=== PATIENT | male | born 1940 | race Caucasian/White ===

== ENCOUNTER 2018-04-07 07:06 | Emergency (ER) | payer MEDICARE, BC ==
--- NOTE | 2018-04-07 07:34 | EDM.PDOC ---
ED HPI GENERAL MEDICAL PROBLEM - General Chief Complaint: General Stated Complaint: WEAKNESS/INCREASED CONFUSION Time Seen by Provider: 04/07/18 07:27 Source of Information: Reports: Family History Limitations: Reports: No Limitations - History of Present Illness INITIAL COMMENTS - FREE TEXT/NARRATIVE: 77-year-old male brought to the ED by his and son this morning. They have appreciated increased generalized weakness and confusion over the last several weeks but much worse over the last week. Patient did have a tooth resected are excised earlier this week but was not put on any pain medication or antibiotics. Seemed to tolerate the procedure quite well and has been eating and drinking okay. They've appreciated him expressing declining in cognitive cognitive function and mobility over the last 2 months. is been diagnosed with Lewy body dementia about 5 years ago. He has intermittent incontinence of stool and urine. Weight has been for the most part stable. Denies cough or sputum production. They believe he is taking adequate nutrition. Onset: Gradual, Unknown/Unsure (Over the last 2 months but worse the last 3-4 days.) Duration: Week(s):, Chronic Location: Reports: Generalized Quality: Reports: Other (Generalized decline in cognitive function and seems to be more confused as of late particular last 3-4 days. Infusion disorientation) Severity: Moderate (generalized weakness) Improves with: Reports: None Worsens with: Reports: None Context: Reports: Other (Ration has Lewy body dementia. He had a tooth extracted 2 days ago). Denies: Activity, Exercise, Lifting, Sick Contact, Trauma Associated Symptoms: Reports: Confusion (More confused than normal), Loss of Appetite, Malaise, Weakness. Denies: Chest Pain, Cough ( and seems to be declining level of function since that time.), cough w sputum, Diaphoresis, Fever/Chills, Headaches, Nausea/Vomiting, Rash, Seizure, Shortness of Breath, Syncope Treatments SEED SPECIALIST: Reports: Other (see below) (Generalized weakness no changes to medications.) - Related Data Allergies Allergy/AdvReac Type Severity Reaction Status Date / Time No Known Allergies Allergy Verified 04/07/18 07:18 Home Meds: Home Meds Allopurinol [Zyloprim] 50 mg PO DAILY 04/07/18 [History] Furosemide 40 mg PO DAILY 04/07/18 [History] Levothyroxine [Synthroid] 50 mcg PO ACBREAKFAST 04/07/18 [History] Metoprolol Succinate [Toprol XL 100mg] 100 mg PO DAILY 04/07/18 [History] Rivastigmine 1 each TD DAILY 04/07/18 [History] Spironolactone [Aldactone] 25 mg PO DAILY #21 tab 04/07/18 [Rx] Warfarin Sodium [Jantoven] 10 mg PO DAILY 04/07/18 [History] Past Medical History Cardiovascular History: Reports: Heart Failure, Pacemaker (With battery change about 2 years ago.) Neurological History: Reports: Other (See Below) (Has Lewy body dementia.) Endocrine/Metabolic History: Reports: Hypothyroidism Social & Family History - Tobacco Use Smoking Status *Q: Never Smoker - Caffeine Use Caffeine Use: Reports: None - Recreational Drug Use Recreational Drug Use: No - Living Situation & Occupation Living situation: Reports: , with Family ( cares for him.) Occupation: Retired ED ROS GENERAL - Review of Systems Review Of Systems: See Below Constitutional: Reports: Malaise, Weakness, Fatigue, Decreased Appetite, Weight Loss. Denies: Fever HEENT: Reports: No Symptoms Respiratory: Reports: Other (Note O2 sats of 94% on room air). Denies: Shortness of Breath, Wheezing, Pleuritic Chest Pain, Hemoptysis Cardiovascular: Reports: No Symptoms, Blood Pressure Problem, Other ( Hypertension has a pacemaker). Denies: Chest Pain Endocrine: Reports: Fatigue GI/Abdominal: Reports: Constipation (Location positive constipation), Decreased Appetite, Stool Incontinence (Occasionally.) : Reports: Frequency (Occasional incontinence), Incontinence Musculoskeletal: Reports: Back Pain, Joint Pain Skin: Reports: Bruising Neurological: Reports: Confusion (Bruises easily.), Trouble Speaking, Difficulty Walking, Weakness. Denies: Syncope, Tremors, Change in Speech Psychiatric: Reports: No Symptoms Hematologic/Lymphatic: Reports: No Symptoms Immunologic: Reports: No Symptoms ED EXAM, GENERAL - Physical Exam Exam: See Below Exam Limited By: Physical Impairment (Patient doesn't carry on much of a verbal conversation. He does comply with physical examination such as taking a deep breath opening his mouth etc.) General Appearance: Alert, WD/WN, No Apparent Distress, Other (Does feel mildly warm to palpation.) Eye Exam: Bilateral Eye: Normal Inspection Ears: Normal TMs Throat/Mouth: Normal Inspection, Normal Lips, Normal Oropharynx, Other Head: Atraumatic (He has numerous teeth that are going to need to be removed in the near future.), Normocephalic Neck: Normal Inspection, Supple, Non-Tender, Full Range of Motion. No: Lymphadenopathy (L), Lymphadenopathy (R) Respiratory/Chest: No Respiratory Distress, Lungs Clear, No Accessory Muscle Use , Respiratory Distress (Mild tachypnea at rest.), Decreased Breath Sounds. No: Rales, Wheezing Cardiovascular: Regular Rate, Rhythm, No Edema, No Gallop, No Murmur (Decreased the lower 25% of lung ferreira posteriorly) Peripheral Pulses: 1+: Posterior Tibial (L), Posterior Tibial (R), Dorsalis Pedis (L), Dorsalis Pedis (R) GI/Abdominal: Normal Bowel Sounds, Soft, Non-Tender, No Organomegaly, No Abnormal Bruit, No Mass, Pelvis Stable Extremities: Normal Inspection, Normal Range of Motion, Non-Tender, No Pedal Edema, Other (Some bruising dorsal hands and wrists) Neurological: CN II-XII Intact, No Motor/Sensory Deficits, Disoriented ( Disorder to time and place.). No: Oriented, Normal Cognition, Normal Gait, Normal Reflexes Psychiatric: Flat Affect Skin Exam: Warm, Dry, Intact, Normal Color, No Rash Course - Vital Signs Last Recorded V/S: Last Vital Signs Temp 36.6 C 04/07/18 07:52 Pulse 68 04/07/18 07:15 Resp 20 04/07/18 07:15 BP 138/77 04/07/18 07:15 Pulse Ox 94 L 04/07/18 07:15 - Orders/Labs/Meds Orders: Active Orders 24 hr Category Date Time Status Chest 1V Frontal [CR] Stat Exams 04/07/18 07:35 Taken CULTURE BLOOD [BC] Stat Lab 04/07/18 07:50 Received CULTURE BLOOD [BC] Stat Lab 04/07/18 07:57 Received URINALYSIS W/MICROSCOPIC [UA W/MICROSCOPIC] [URIN] Stat Lab 04/07/18 08:00 Ordered Dextrose 5%-0.9% NaCl [Dextrose 5%-Normal Saline] 1,000 Med 04/07/18 07:45 Active ml IV ASDIRECTED Blood Culture x2 Reflex Set [OM.PC] Stat Oth 04/07/18 07:36 Ordered Medication Orders Dextrose/Sodium Chloride (Dextrose 5%-Normal Saline) 1,000 mls @ 150 mls/hr IV ASDIRECTED LILLY Last Admin: 04/07/18 07:52 Dose: 150 mls/hr Labs: Laboratory Tests 04/07/18 04/07/18 04/07/18 Range/Units 07:50 07:50 07:50 WBC 7.81 (4.23-9.07) K/mm3 RBC 4.76 (4.63-6.08) M/mm3 Hgb 15.0 (13.7-17.5) gm/L Hct 43.5 (40.1-51.0) % MCV 91.4 (79.0-92.2) fl MCH 31.5 (25.7-32.2) pg MCHC 34.5 (32.2-35.5) g/dl RDW Std Deviation 44.4 H (35.1-43.9) fL Plt Count 182 (163-337) K/mm3 MPV 8.7 L (9.4-12.3) fl Neutrophils % (Manual) 75 H (40-60) % Band Neutrophils % 0 (0-10) % Lymphocytes % (Manual) 24 (20-40) % Atypical Lymphs % 0 % Monocytes % (Manual) 1 L (2-10) % Eosinophils % (Manual) 0 L (0.8-7.0) % Basophils % (Manual) 0 L (0.2-1.2) Platelet Estimate Adequate RBC Morph Comment Normal ESR (0-15) mm/hr PT 28.5 H (9.5-12.1) SECONDS INR 2.67 Sodium 143 (136-145) mEq/L Potassium 3.7 (3.5-5.1) mEq/L Chloride 105 (98-107) mEq/L Carbon Dioxide 30 (21-32) mEq/L Anion Gap 11.7 (5-15) BUN 17 (7-18) mg/dL Creatinine 1.3 (0.7-1.3) mg/dL Est Cr Clr Drug Dosing 43.08 mL/min Estimated GFR (MDRD) 53 (>60) mL/min BUN/Creatinine Ratio 13.1 L (14-18) Glucose 110 (83-115) mg/dL Lactic Acid (0.4-2.0) mmol/L Calcium 9.1 (8.5-10.1) mg/dL Magnesium 1.8 (1.8-2.4) mg/dl Total Bilirubin 1.6 H (0.2-1.0) mg/dL AST 25 (15-37) U/L ALT 24 (16-63) U/L Alkaline Phosphatase 102 (46-116) U/L CK-MB (CK-2) 0.7 (0-3.6) ng/ml Troponin I < 0.017 (0.00-0.056) ng/mL C-Reactive Protein 1.9 H* (<1.0) mg/dL NT-Pro-B Natriuret Pep (0-450) pg/mL Total Protein 7.2 (6.4-8.2) g/dl Albumin 3.7 (3.4-5.0) g/dl Globulin 3.5 gm/dL Albumin/Globulin Ratio 1.1 (1-2) TSH 3rd Generation 2.504 (0.358-3.74) uIU/mL Urine Color (Yellow) Urine Appearance (Clear) Urine pH (5.0-8.0) Ur Specific [place] (1.005-1.030) Urine Protein (Negative) Urine Glucose (UA) (Negative) Urine Ketones (Negative) Urine Occult Blood (Negative) Urine Nitrite (Negative) Urine Bilirubin (Negative) Urine Urobilinogen (0.2-1.0) Ur Leukocyte Esterase (Negative) Urine RBC (0-5) /hpf Urine WBC (0-5) /hpf Ur Epithelial Cells (0-5) /hpf Urine Bacteria (FEW) /hpf Urine Mucus (FEW) /hpf 04/07/18 04/07/18 04/07/18 Range/Units 07:50 07:50 07:50 WBC (4.23-9.07) K/mm3 RBC (4.63-6.08) M/mm3 Hgb (13.7-17.5) gm/L Hct (40.1-51.0) % MCV (79.0-92.2) fl MCH (25.7-32.2) pg MCHC (32.2-35.5) g/dl RDW Std Deviation (35.1-43.9) fL Plt Count (163-337) K/mm3 MPV (9.4-12.3) fl Neutrophils % (Manual) (40-60) % Band Neutrophils % (0-10) % Lymphocytes % (Manual) (20-40) % Atypical Lymphs % % Monocytes % (Manual) (2-10) % Eosinophils % (Manual) (0.8-7.0) % Basophils % (Manual) (0.2-1.2) Platelet Estimate RBC Morph Comment ESR 33 H (0-15) mm/hr PT (9.5-12.1) SECONDS INR Sodium (136-145) mEq/L Potassium (3.5-5.1) mEq/L Chloride (98-107) mEq/L Carbon Dioxide (21-32) mEq/L Anion Gap (5-15) BUN (7-18) mg/dL Creatinine (0.7-1.3) mg/dL Est Cr Clr Drug Dosing mL/min Estimated GFR (MDRD) (>60) mL/min BUN/Creatinine Ratio (14-18) Glucose (83-115) mg/dL Lactic Acid 0.9 (0.4-2.0) mmol/L Calcium (8.5-10.1) mg/dL Magnesium (1.8-2.4) mg/dl Total Bilirubin (0.2-1.0) mg/dL AST (15-37) U/L ALT (16-63) U/L Alkaline Phosphatase (46-116) U/L CK-MB (CK-2) (0-3.6) ng/ml Troponin I (0.00-0.056) ng/mL C-Reactive Protein (<1.0) mg/dL NT-Pro-B Natriuret Pep 1842 H (0-450) pg/mL Total Protein (6.4-8.2) g/dl Albumin (3.4-5.0) g/dl Globulin gm/dL Albumin/Globulin Ratio (1-2) TSH 3rd Generation (0.358-3.74) uIU/mL Urine Color (Yellow) Urine Appearance (Clear) Urine pH (5.0-8.0) Ur Specific [place] (1.005-1.030) Urine Protein (Negative) Urine Glucose (UA) (Negative) Urine Ketones (Negative) Urine Occult Blood (Negative) Urine Nitrite (Negative) Urine Bilirubin (Negative) Urine Urobilinogen (0.2-1.0) Ur Leukocyte Esterase (Negative) Urine RBC (0-5) /hpf Urine WBC (0-5) /hpf Ur Epithelial Cells (0-5) /hpf Urine Bacteria (FEW) /hpf Urine Mucus (FEW) /hpf 04/07/18 Range/Units 08:00 WBC (4.23-9.07) K/mm3 RBC (4.63-6.08) M/mm3 Hgb (13.7-17.5) gm/L Hct (40.1-51.0) % MCV (79.0-92.2) fl MCH (25.7-32.2) pg MCHC (32.2-35.5) g/dl RDW Std Deviation (35.1-43.9) fL Plt Count (163-337) K/mm3 MPV (9.4-12.3) fl Neutrophils % (Manual) (40-60) % Band Neutrophils % (0-10) % Lymphocytes % (Manual) (20-40) % Atypical Lymphs % % Monocytes % (Manual) (2-10) % Eosinophils % (Manual) (0.8-7.0) % Basophils % (Manual) (0.2-1.2) Platelet Estimate RBC Morph Comment ESR (0-15) mm/hr PT (9.5-12.1) SECONDS INR Sodium (136-145) mEq/L Potassium (3.5-5.1) mEq/L Chloride (98-107) mEq/L Carbon Dioxide (21-32) mEq/L Anion Gap (5-15) BUN (7-18) mg/dL Creatinine (0.7-1.3) mg/dL Est Cr Clr Drug Dosing mL/min Estimated GFR (MDRD) (>60) mL/min BUN/Creatinine Ratio (14-18) Glucose (83-115) mg/dL Lactic Acid (0.4-2.0) mmol/L Calcium (8.5-10.1) mg/dL Magnesium (1.8-2.4) mg/dl Total Bilirubin (0.2-1.0) mg/dL AST (15-37) U/L ALT (16-63) U/L Alkaline Phosphatase (46-116) U/L CK-MB (CK-2) (0-3.6) ng/ml Troponin I (0.00-0.056) ng/mL C-Reactive Protein (<1.0) mg/dL NT-Pro-B Natriuret Pep (0-450) pg/mL Total Protein (6.4-8.2) g/dl Albumin (3.4-5.0) g/dl Globulin gm/dL Albumin/Globulin Ratio (1-2) TSH 3rd Generation (0.358-3.74) uIU/mL Urine Color Yellow (Yellow) Urine Appearance Clear (Clear) Urine pH 7.0 (5.0-8.0) Ur Specific [place] 1.020 (1.005-1.030) Urine Protein Negative (Negative) Urine Glucose (UA) Negative (Negative) Urine Ketones Negative (Negative) Urine Occult Blood Trace-intact H (Negative) Urine Nitrite Negative (Negative) Urine Bilirubin Negative (Negative) Urine Urobilinogen 0.2 (0.2-1.0) Ur Leukocyte Esterase Negative (Negative) Urine RBC 0-5 (0-5) /hpf Urine WBC 0-5 (0-5) /hpf Ur Epithelial Cells 0-5 (0-5) /hpf Urine Bacteria Not seen (FEW) /hpf Urine Mucus Not seen (FEW) /hpf Meds: Medications Generic Name Dose Route Start Last Admin Trade Name Freq PRN Reason Stop Dose Admin Dextrose/Sodium Chloride 1,000 mls @ 150 mls/hr 04/07/18 07:45 04/07/18 07:52 Dextrose 5%-Normal Saline IV 150 mls/hr ASDIRECTED LILLY Administration Discontinued Medications Generic Name Dose Route Start Last Admin Trade Name Freq PRN Reason Stop Dose Admin Acetaminophen 650 mg 04/07/18 07:35 04/07/18 07:52 Tylenol PO 04/07/18 07:36 650 mg NOW ONE Administration Furosemide 40 mg 04/07/18 09:24 04/07/18 09:30 Lasix IVPUSH 04/07/18 09:25 40 mg NOW ONE Administration - Radiology Interpretation Free Text/Narrative:: 77-year-old male with known widely body dementia presents the ED by family members with concerns about declining cognitive and physical state. He seems to be more confused disoriented and weak compared to his normal the last week or 2. Seems to be worse since having an dental extraction carried out 2 days ago. He's on no pain medications or antibiotics. Clinically he does feel like he has a low-grade fever. He is nonverbal for the most part but does obey commands to allow examination. Is to make sure he does not have an underlying infective process. Routine labs to be done including portable chest x-ray and a catheterized urine specimens. Routine labs to include blood cultures 2. - Re-Assessments/Exams Free Text/Narrative Re-Assessment/Exam: 04/07/18 08:19 chest x-ray done portably is rotated to the right. It shows moderate cardiomegaly. Slight hyperinflated lung ferreira with mild diffuse vascular congestion pattern. No pneumothorax or pleural effusions evident. No signs of an infective process either. 04/07/18 09:23 Labs are back showing a normal white count at 7.81. Differential is 75% neutrophils with no band cells reported. Hemoglobin is 15.0 with hematocrit of 43.5. Platelet count is 182,000. PT is 20.5 with an INR of 2.67. I.e. slightly supratherapeutic INR. Sodium is 143 with potassium of 3.7. Chloride 105 with a bicarbonate 30. Anion gap is normal 11.7. BUNs 17 with a creatinine of 1.3. Estimated GFR is 53. Glucose is 110 with a lactic acid of 0.9. Calcium is 9.1 with magnesium of 1.8. Total bilirubin is 1.6. AST is 25 with an ALT of 24. Alk phosphatase 102. CK-MB fraction is 0.7. Troponin I is less than 0.017. C-reactive protein is 1.9. BNP is elevated 1842.. Total protein is 7.2. TSH is normal at 2.50. Urinalysis is negative for any infection. 04/07/18 10:06 upon further discussion with the she indicates that he is having much more trouble walking and a relating the last 2-3 days and she's concerned that he may have suffered a stroke. CT head will be done although not much is likely going to be admitted available to him in terms of improvement of this disorder is likely related to the Lewey body dementia. 04/07/18 11:29 had a long talk with the and watched him ambulate. He is exhibiting extrapyramidal symptoms. Drooling yesterday which is atypical for him walking with a shuffling gait and certainly has masked facies . Of note his neurologist placed him on 25 mg of Seroquel 2 weeks ago because of appreciated visual hallucinations. It seems to brought out extrapyramidal symptoms. After discussion with the neurologist last week the had reduce the dosage to 12.5 mg a day and he still having significant difficulties. It is my suggestion at this time that they stopped the medication completely and likely stop the Namenda as well as it may be contributing to hallucinations. He is advanced degenerative disease and is unlikely to be getting much benefit from the Namenda and it can be causing some of the hallucinations. If is on board with these changes and therefore I'll have him follow-up with Dr. Rios in 2 weeks time to see if he's better or worse. Departure - Departure Time of Disposition: 11:31 Disposition: Home, Self-Care 01 Condition: Poor Clinical Impression: Severe dementia Adverse effects of medication Qualifiers: Encounter type: initial encounter Qualified Code(s): T50.905A - Adverse effect of unspecified drugs, medicaments and biological substances, initial encounter Chronic congestive heart failure Qualifiers: Heart failure type: diastolic Qualified Code(s): I50.32 - Chronic diastolic ( congestive) heart failure - Discharge Information *PRESCRIPTION DRUG MONITORING PROGRAM REVIEWED*: Not Applicable *COPY OF PRESCRIPTION DRUG MONITORING REPORT IN PATIENT NICKOL[place]: Not Applicable Prescriptions: Spironolactone [Aldactone] 25 mg PO DAILY #21 tab Referrals: Adrian Maravilla MD [Primary Care Provider] - Forms: ED Department Discharge Additional Instructions: Evaluation in the emergency room today in regards to increased problems with gait and increased confusion. Patient has known severe dementia secondary to E body disease. Laboratory evaluation suggests slight worsening of his congestive heart failure and he was given an extra dose of Lasix intravenously while in the ED today. I would suggest an increase in his Lasix to 40 mg in the morning and 20 mg between 2 and 3:00 in the afternoon daily. Also Aldactone 25 mg once daily in the morning to help the Lasix work better and safe potassium. In regards to the dementia illness I am highly suspicious that no medication Seroquel is contributing to extrapyramidal side effects which makes him look or parkinsonian. Also suggest because he is having hallucinations that Namenda which she's been on for a couple of years may be causing some of these side effects as well. Suggest discontinuing both of these medications at this time. Suggest follow-up with Dr. Maravilla in 10 days' time to assess his heart failure and his cognitive function off of the Seroquel and Namenda. The only new medication added today was Aldactone 25 mg once daily every morning. An increased dose of Lasix as described above. - My Orders Last 24 Hours: My Active Orders 04/07/18 07:35 Chest 1V Frontal [CR] Stat 04/07/18 07:36 Blood Culture x2 Reflex Set [OM.PC] Stat 04/07/18 07:45 Dextrose 5%-0.9% NaCl [Dextrose 5%-Normal Saline] 1,000 ml IV ASDIRECTED 04/07/18 07:50 CULTURE BLOOD [BC] Stat 04/07/18 07:57 CULTURE BLOOD [BC] Stat 04/07/18 08:00 URINALYSIS W/MICROSCOPIC [UA W/MICROSCOPIC] [URIN] Stat - Assessment/Plan Last 24 Hours: My Active Orders 04/07/18 07:35 Chest 1V Frontal [CR] Stat 04/07/18 07:36 Blood Culture x2 Reflex Set [OM.PC] Stat 04/07/18 07:45 Dextrose 5%-0.9% NaCl [Dextrose 5%-Normal Saline] 1,000 ml IV ASDIRECTED 04/07/18 07:50 CULTURE BLOOD [BC] Stat 04/07/18 07:57 CULTURE BLOOD [BC] Stat 04/07/18 08:00 URINALYSIS W/MICROSCOPIC [UA W/MICROSCOPIC] [URIN] Stat
[2018-04-07] MEDS ORDERED: Acetaminophen 325 MG Tab PO ONE (07:35)
[2018-04-07] MEDS ORDERED: Dextrose 5%-0.9% NaCl 1,000 ML IV SCH (07:45)
[2018-04-07] MEDS ORDERED: Furosemide 40 MG/4 ML VIAL IVPUSH ONE (09:24)
--- NOTE | 2018-04-07 10:42 | CT ---
Head CT Technique: Multiple axial sections through the brain were obtained. Intravenous contrast was not utilized. Comparison: No prior intracranial imaging. Findings: Ventricles along with basal cisterns and sulci over the convexities are moderately prominent. Minimal diminished density is noted within the periventricular white matter which is felt compatible with small vessel ischemic demyelination change. Atrophy is also noted within the cerebellum. No other abnormal parenchymal densities are seen. No evidence of intracranial hemorrhage. No midline shift or mass effect is seen. Bone window settings were obtained which shows moderate mucosal thickening left maxillary sinus and mild areas of mucosal thickening within the ethmoid sinuses. No acute calvarial abnormality is seen. Impression: 1. Sinus findings which likely represent mild chronic sinusitis. 2. Generalized atrophy as noted above. Nothing acute is appreciated on noncontrast head CT exam. Diagnostic code #2
--- NOTE | 2018-04-10 08:36 | CR ---
Chest: Portable view of the chest was obtained. Comparison: Prior chest x-ray at 11/20/13. Heart size is normal. Tortuous thoracic aorta is seen. Pacemaker is noted. Lungs are clear without acute parenchymal change. Bony structures are grossly intact. Impression: 1. Nothing acute is seen on frontal chest x-ray. Diagnostic code #2
== END 2018-04-07 11:50 | disposition home or self-care (01) ==
LOC: JD.ED 07:06
DX: R41.0 Disorientation, unspecified (principal); T43.595A Adverse effect of other antipsychotics and neuroleptics, initial encounter; G31.83 Neurocognitive disorder with Lewy bodies; F02.80 Dementia in other diseases classified elsewhere, unspecified severity, without behavioral disturbance, psychotic disturbance, mood disturbance, and anxiety; I50.32 Chronic diastolic (congestive) heart failure; E03.9 Hypothyroidism, unspecified; Z79.01 Long term (current) use of anticoagulants; Z79.899 Other long term (current) drug therapy
CPT/HCPCS: 36415; 70450; 71045; 80053; 81001; 82553; 83605; 83735; 83880; 84443; 84484; 85007; 85027; 85610; 85652; 86140; 87040; 96361; 96374; 99285; A9270; J1940; J7042

== ENCOUNTER 2018-04-09 23:53 | Inpatient (IN) | payer MEDICARE, BC ==
[2018-04-10] MEDS ORDERED: Acetaminophen 325 MG Tab PO ONE (01:02)
[2018-04-10] MEDS ORDERED: cefTRIAXone 1 GM in Sodium Chloride 0.9% 100 ML IV ONE (01:38)
--- NOTE | 2018-04-10 02:25 | EDM.PDOC ---
ED HPI GENERAL MEDICAL PROBLEM - General Chief Complaint: Respiratory Problem Stated Complaint: [facility] Time Seen by Provider: 04/10/18 02:20 Source of Information: Reports: Patient, Family - History of Present Illness Onset: Today Treatments [employer]: Reports: IV/IO - Related Data Allergies Allergy/AdvReac Type Severity Reaction Status Date / Time procaine Allergy Unknown unknown Verified 04/10/18 03:28 Home Meds: Home Meds Allopurinol [Zyloprim] 50 mg PO DAILY 04/07/18 [History] Furosemide 60 mg PO DAILY 04/07/18 [History] Levothyroxine [Synthroid] 50 mcg PO ACBREAKFAST 04/07/18 [History] Metoprolol Succinate [Toprol XL 100mg] 100 mg PO DAILY 04/07/18 [History] Rivastigmine 1 each TD DAILY 04/07/18 [History] Spironolactone [Aldactone] 25 mg PO DAILY #21 tab 04/07/18 [Rx] Warfarin Sodium [Jantoven] 10 mg PO DAILY 04/10/18 [History] Past Medical History HEENT History: Reports: Impaired Vision Cardiovascular History: Reports: Heart Failure, Pacemaker (With battery change about 2 years ago.) Musculoskeletal History: Reports: Gout Neurological History: Reports: Other (See Below) (Has Lewy body dementia.) Other Neuro History: lewie body dementia Psychiatric History: Reports: Dementia Endocrine/Metabolic History: Reports: Hypothyroidism Hematologic History: Reports: Anticoagulation Therapy - Past Surgical History HEENT Surgical History: Reports: Other (See Below) Other HEENT Surgeries/Procedures: teeth pulled Social & Family History - Caffeine Use Caffeine Use: Reports: None - Living Situation & Occupation Living situation: Reports: , with Family ( cares for him.) Occupation: Retired ED ROS GENERAL - Review of Systems Review Of Systems: See Below (see dictation) ED EXAM, GENERAL - Physical Exam Exam: See Below (dictated) Course - Vital Signs Last Recorded V/S: Last Vital Signs Temp 38.8 C H 04/10/18 01:20 Pulse 60 04/10/18 03:10 Resp 24 H 04/10/18 03:10 BP 108/55 L 04/10/18 03:10 Pulse Ox 98 04/10/18 03:10 - Orders/Labs/Meds Orders: Active Orders 24 hr Category Date Time Status Chest 1V Frontal [CR] Stat Exams 04/10/18 00:01 Taken CULTURE BLOOD [BC] Stat Lab 04/10/18 00:20 Received CULTURE BLOOD [BC] Stat Lab 04/10/18 00:33 Received UA W/MICROSCOPIC [URIN] Stat Lab 04/10/18 00:39 Ordered Blood Culture x2 Reflex Set [OM.PC] Stat Oth 04/10/18 00:00 Ordered EKG 12 Lead [EK] Stat Ther 04/10/18 01:38 Ordered Medication Orders Sodium Chloride (Saline Flush) 10 ml FLUSH ASDIRECTED PRN PRN Reason: Keep Vein Open Labs: Laboratory Tests 04/10/18 04/10/18 04/10/18 Range/Units 00:20 00:20 00:20 WBC 9.30 H (4.23-9.07) K/mm3 RBC 4.70 (4.63-6.08) M/mm3 Hgb 14.8 (13.7-17.5) gm/L Hct 43.3 (40.1-51.0) % MCV 92.1 (79.0-92.2) fl MCH 31.5 (25.7-32.2) pg MCHC 34.2 (32.2-35.5) g/dl RDW Std Deviation 45.5 H (35.1-43.9) fL Plt Count 182 (163-337) K/mm3 MPV 9.2 L (9.4-12.3) fl Neutrophils % (Manual) 87 H (40-60) % Band Neutrophils % 0 (0-10) % Lymphocytes % (Manual) 7 L (20-40) % Atypical Lymphs % 0 % Monocytes % (Manual) 6 (2-10) % Eosinophils % (Manual) 0 L (0.8-7.0) % Basophils % (Manual) 0 L (0.2-1.2) Toxic Granulation 1+ slight Platelet Estimate Adequate Plt Morphology Comment Normal Anisocytosis 1+ slight Microcytosis 1+ slight Macrocytosis 1+ slight RBC Morph Comment Abnormal ESR 33 H (0-15) mm/hr Sodium 141 (136-145) mEq/L Potassium 4.0 (3.5-5.1) mEq/L Chloride 104 (98-107) mEq/L Carbon Dioxide 28 (21-32) mEq/L Anion Gap 13.0 (5-15) BUN 22 H (7-18) mg/dL Creatinine 1.5 H (0.7-1.3) mg/dL Est Cr Clr Drug Dosing TNP Estimated GFR (MDRD) 45 (>60) mL/min BUN/Creatinine Ratio 14.7 (14-18) Glucose 141 H (83-115) mg/dL Lactic Acid (0.4-2.0) mmol/L Calcium 8.9 (8.5-10.1) mg/dL Total Bilirubin 1.3 H (0.2-1.0) mg/dL AST 68 H (15-37) U/L ALT 60 (16-63) U/L Alkaline Phosphatase 127 H (46-116) U/L C-Reactive Protein 2.2 H* (<1.0) mg/dL NT-Pro-B Natriuret Pep (0-450) pg/mL Total Protein 7.2 (6.4-8.2) g/dl Albumin 3.5 (3.4-5.0) g/dl Globulin 3.7 gm/dL Albumin/Globulin Ratio 1.0 (1-2) Urine Color (Yellow) Urine Appearance (Clear) Urine pH (5.0-8.0) Ur Specific [place] (1.005-1.030) Urine Protein (Negative) Urine Glucose (UA) (Negative) Urine Ketones (Negative) Urine Occult Blood (Negative) Urine Nitrite (Negative) Urine Bilirubin (Negative) Urine Urobilinogen (0.2-1.0) Ur Leukocyte Esterase (Negative) Urine RBC (0-5) /hpf Urine WBC (0-5) /hpf Ur Epithelial Cells (0-5) /hpf Urine Bacteria (FEW) /hpf Hyaline Casts (0-5) /lpf Urine Mucus (FEW) /hpf 04/10/18 04/10/18 04/10/18 Range/Units 00:20 00:20 00:39 WBC (4.23-9.07) K/mm3 RBC (4.63-6.08) M/mm3 Hgb (13.7-17.5) gm/L Hct (40.1-51.0) % MCV (79.0-92.2) fl MCH (25.7-32.2) pg MCHC (32.2-35.5) g/dl RDW Std Deviation (35.1-43.9) fL Plt Count (163-337) K/mm3 MPV (9.4-12.3) fl Neutrophils % (Manual) (40-60) % Band Neutrophils % (0-10) % Lymphocytes % (Manual) (20-40) % Atypical Lymphs % % Monocytes % (Manual) (2-10) % Eosinophils % (Manual) (0.8-7.0) % Basophils % (Manual) (0.2-1.2) Toxic Granulation Platelet Estimate Plt Morphology Comment Anisocytosis Microcytosis Macrocytosis RBC Morph Comment ESR (0-15) mm/hr Sodium (136-145) mEq/L Potassium (3.5-5.1) mEq/L Chloride (98-107) mEq/L Carbon Dioxide (21-32) mEq/L Anion Gap (5-15) BUN (7-18) mg/dL Creatinine (0.7-1.3) mg/dL Est Cr Clr Drug Dosing Estimated GFR (MDRD) (>60) mL/min BUN/Creatinine Ratio (14-18) Glucose (83-115) mg/dL Lactic Acid 1.6 (0.4-2.0) mmol/L Calcium (8.5-10.1) mg/dL Total Bilirubin (0.2-1.0) mg/dL AST (15-37) U/L ALT (16-63) U/L Alkaline Phosphatase (46-116) U/L C-Reactive Protein (<1.0) mg/dL NT-Pro-B Natriuret Pep 754 H (0-450) pg/mL Total Protein (6.4-8.2) g/dl Albumin (3.4-5.0) g/dl Globulin gm/dL Albumin/Globulin Ratio (1-2) Urine Color Yellow (Yellow) Urine Appearance Clear (Clear) Urine pH 6.0 (5.0-8.0) Ur Specific [place] > or = 1.030 (1.005-1.030) Urine Protein 1+ H (Negative) Urine Glucose (UA) Negative (Negative) Urine Ketones Negative (Negative) Urine Occult Blood Negative (Negative) Urine Nitrite Negative (Negative) Urine Bilirubin Negative (Negative) Urine Urobilinogen 1.0 (0.2-1.0) Ur Leukocyte Esterase Negative (Negative) Urine RBC 0-5 (0-5) /hpf Urine WBC 0-5 (0-5) /hpf Ur Epithelial Cells 0-5 (0-5) /hpf Urine Bacteria Rare (FEW) /hpf Hyaline Casts 0-5 (0-5) /lpf Urine Mucus Many H (FEW) /hpf Meds: Medications Generic Name Dose Route Start Last Admin Trade Name Frerod PRN Reason Stop Dose Admin Sodium Chloride 10 ml 04/10/18 04:27 Saline Flush FLUSH ASDIRECTED PRN Keep Vein Open Discontinued Medications Generic Name Dose Route Start Last Admin Trade Name Freq PRN Reason Stop Dose Admin Acetaminophen 650 mg 04/10/18 01:02 04/10/18 01:09 Tylenol PO 04/10/18 01:03 650 mg NOW ONE Administration Ceftriaxone Sodium 1 gm/ 100 mls @ 200 mls/hr 04/10/18 01:38 04/10/18 02:02 Sodium Chloride IV 04/10/18 02:07 200 mls/hr ONETIME ONE Administration Departure - Departure Time of Disposition: 02:21 Disposition: Admitted As Inpatient 64 Condition: Poor Clinical Impression: Pneumonia Qualifiers: Pneumonia type: due to unspecified organism Laterality: right Lung location: upper lobe of lung Qualified Code(s): J18.1 - Lobar pneumonia, unspecified organism - Discharge Information *PRESCRIPTION DRUG MONITORING PROGRAM REVIEWED*: No *COPY OF PRESCRIPTION DRUG MONITORING REPORT IN PATIENT NICKOLAS: No - My Orders Last 24 Hours: My Active Orders 04/10/18 00:00 Blood Culture x2 Reflex Set [OM.PC] Stat 04/10/18 00:01 Chest 1V Frontal [CR] Stat 04/10/18 00:20 CULTURE BLOOD [BC] Stat 04/10/18 00:33 CULTURE BLOOD [BC] Stat 04/10/18 00:39 UA W/MICROSCOPIC [URIN] Stat 04/10/18 01:38 EKG 12 Lead [EK] Stat - Assessment/Plan Last 24 Hours: My Active Orders 04/10/18 00:00 Blood Culture x2 Reflex Set [OM.PC] Stat 04/10/18 00:01 Chest 1V Frontal [CR] Stat 04/10/18 00:20 CULTURE BLOOD [BC] Stat 04/10/18 00:33 CULTURE BLOOD [BC] Stat 04/10/18 00:39 UA W/MICROSCOPIC [URIN] Stat 04/10/18 01:38 EKG 12 Lead [EK] Stat
[2018-04-10] MEDS ORDERED: Sodium Chloride 0.9% 10 ML Syringe FLUSH PRN (04:27)
--- NOTE | 2018-04-10 09:44 | CR ---
Chest: Portable view of the chest was obtained. Comparison: Prior chest x-ray of 04/07/18. Heart size is normal. Slight tortuosity of the thoracic aortic is seen. Pacemaker is seen. Lungs are clear without acute parenchymal change. Bony structures are grossly intact. Impression: 1. Nothing acute is seen on portable chest x-ray. Diagnostic code #2
[2018-04-10] MEDS ORDERED: Bisacodyl 5 MG Tab PO PRN (10:47)
[2018-04-10] MEDS ORDERED: Docusate Sodium 100 MG Cap PO PRN (10:47)
[2018-04-10] MEDS ORDERED: Polyethylene Glycol 3350 Powder 17 GM Packet PO PRN (10:47)
[2018-04-10] MEDS ORDERED: Acetaminophen 325 MG Tab PO PRN (10:47)
[2018-04-10] MEDS ORDERED: Albuterol/Ipratropium 3.0-0.5 MG/3 ML Neb Soln NEB PRN (10:47)
[2018-04-10] MEDS ORDERED: Ondansetron 4 MG Tab.DIS PO PRN (10:47)
[2018-04-10] MEDS ORDERED: Ondansetron 4 MG/2 ML SDV IV PRN (10:47)
[2018-04-10] MEDS ORDERED: hydrALAZINE 20 MG/ML SDV IVPUSH PRN (10:56)
[2018-04-10] MEDS ORDERED: Metoprolol Tartrate 5 MG/5 ML SDV IVPUSH PRN (10:56)
[2018-04-10] MEDS ORDERED: RIVASTIGMINE TOP SCH (11:00)
[2018-04-10] MEDS: Furosemide 40 MG Tab PO SCH (11:26)
[2018-04-10] MEDS: Spironolactone 25 MG Tab PO SCH (11:26)
[2018-04-10] MEDS: Allopurinol 100 MG Tab PO SCH (11:26)
[2018-04-10] MEDS: Metoprolol Succinate 50 MG Tab.ER PO SCH (11:27)
--- NOTE | 2018-04-10 11:48 | PCM.HP ---
H&P History of Present Illness - General Date of Service: 04/10/18 Admit Problem/Dx: Admission Diagnosis/Problem Admission Diagnosis/Problem Pneumonia Source of Information: Patient, Family, Old Records, Provider, RN, RN Notes Reviewed History Limitations: Reports: No Limitations - Related Data Allergies/Adverse Reactions: Allergies Allergy/AdvReac Type Severity Reaction Status Date / Time procaine Allergy Unknown unknown Verified 04/10/18 03:28 Home Medications: Home Meds Allopurinol [Zyloprim] 50 mg PO DAILY 04/07/18 [History] Furosemide 60 mg PO DAILY 04/07/18 [History] Levothyroxine [Synthroid] 50 mcg PO ACBREAKFAST 04/07/18 [History] Metoprolol Succinate [Toprol XL 100mg] 100 mg PO DAILY 04/07/18 [History] Rivastigmine 1 each TD DAILY 04/07/18 [History] Spironolactone [Aldactone] 25 mg PO DAILY #21 tab 04/07/18 [Rx] Warfarin Sodium [Jantoven] 10 mg PO DAILY 04/10/18 [History] Past Medical History HEENT History: Reports: Impaired Vision Other HEENT History: wears glasses Cardiovascular History: Reports: Heart Failure, Pacemaker (With battery change about 2 years ago.) Respiratory History: Reports: Asthma Gastrointestinal History: Reports: Colon Polyp Other Gastrointestinal History: bile duct cancer, 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 new bile duct is made out of intestinal tract Genitourinary History: Reports: Other (See Below) Other Genitourinary History: lately patient has had some incontinence issues Musculoskeletal History: Reports: Gout Neurological History: Reports: Other (See Below) (Has Lewy body dementia.) Other Neuro History: lewie body dementia Psychiatric History: Reports: Dementia Endocrine/Metabolic History: Reports: Hypothyroidism Hematologic History: Reports: Anticoagulation Therapy Other Oncologic History: bile duct 10 years ago Dermatologic History: Reports: Other (See Below) Other Dermatologic History: discolored lower legs bilaterally, has had this for a long time - Past Surgical History HEENT Surgical History: Reports: Other (See Below) Other HEENT Surgeries/Procedures: teeth pulled Social & Family History - Family History Family Medical History: Noncontributory - Tobacco Use Smoking Status *Q: Former Smoker Used Tobacco, but Quit: Yes Month/Year Tobacco Last Used: 40 years ago - Caffeine Use Caffeine Use: Reports: None - Recreational Drug Use Recreational Drug Use: No - Living Situation & Occupation Living situation: Reports: , with Family ( cares for him.) Occupation: Retired Exam - Vital Signs Vital Signs: Last Vital Signs Temp 98.4 F 04/10/18 07:32 Pulse 59 L 04/10/18 07:32 Resp 20 04/10/18 07:32 BP 134/72 04/10/18 07:32 Pulse Ox 97 04/10/18 07:32 Weight: 186 lb 1.6 oz - Patient Data Lab Results Last 24 hrs: Laboratory Results - last 24 hr 04/10/18 04/10/18 04/10/18 Range/Units 00:20 00:20 00:20 WBC 9.30 H (4.23-9.07) K/mm3 RBC 4.70 (4.63-6.08) M/mm3 Hgb 14.8 (13.7-17.5) gm/L Hct 43.3 (40.1-51.0) % MCV 92.1 (79.0-92.2) fl MCH 31.5 (25.7-32.2) pg MCHC 34.2 (32.2-35.5) g/dl RDW Std Deviation 45.5 H (35.1-43.9) fL Plt Count 182 (163-337) K/mm3 MPV 9.2 L (9.4-12.3) fl Neut % (Auto) (34.0-67.9) % Lymph % (Auto) (21.8-53.1) % [place] % (Auto) (5.3-12.2) % Eos % (Auto) (0.8-7.0) Baso % (Auto) (0.1-1.2) % Neut # (Auto) (1.78-5.38) K/mm3 Lymph # (Auto) (1.32-3.57) K/mm3 [place] # (Auto) (0.30-0.82) K/mm3 Eos # (Auto) (0.04-0.54) K/mm3 Baso # (Auto) (0.01-0.08) K/mm3 Neutrophils % (Manual) 87 H (40-60) % Band Neutrophils % 0 (0-10) % Lymphocytes % (Manual) 7 L (20-40) % Atypical Lymphs % 0 % Monocytes % (Manual) 6 (2-10) % Eosinophils % (Manual) 0 L (0.8-7.0) % Basophils % (Manual) 0 L (0.2-1.2) Manual Slide Review Toxic Granulation 1+ slight Platelet Estimate Adequate Plt Morphology Comment Normal Anisocytosis 1+ slight Microcytosis 1+ slight Macrocytosis 1+ slight RBC Morph Comment Abnormal ESR 33 H (0-15) mm/hr PT (9.5-12.1) SECONDS INR Sodium 141 (136-145) mEq/L Potassium 4.0 (3.5-5.1) mEq/L Chloride 104 (98-107) mEq/L Carbon Dioxide 28 (21-32) mEq/L Anion Gap 13.0 (5-15) BUN 22 H (7-18) mg/dL Creatinine 1.5 H (0.7-1.3) mg/dL Est Cr Clr Drug Dosing TNP Estimated GFR (MDRD) 45 (>60) mL/min BUN/Creatinine Ratio 14.7 (14-18) Glucose 141 H (83-115) mg/dL Lactic Acid (0.4-2.0) mmol/L Calcium 8.9 (8.5-10.1) mg/dL Magnesium (1.8-2.4) mg/dl Total Bilirubin 1.3 H (0.2-1.0) mg/dL AST 68 H (15-37) U/L ALT 60 (16-63) U/L Alkaline Phosphatase 127 H (46-116) U/L C-Reactive Protein 2.2 H* (<1.0) mg/dL NT-Pro-B Natriuret Pep (0-450) pg/mL Total Protein 7.2 (6.4-8.2) g/dl Albumin 3.5 (3.4-5.0) g/dl Globulin 3.7 gm/dL Albumin/Globulin Ratio 1.0 (1-2) Urine Color (Yellow) Urine Appearance (Clear) Urine pH (5.0-8.0) Ur Specific [place] (1.005-1.030) Urine Protein (Negative) Urine Glucose (UA) (Negative) Urine Ketones (Negative) Urine Occult Blood (Negative) Urine Nitrite (Negative) Urine Bilirubin (Negative) Urine Urobilinogen (0.2-1.0) Ur Leukocyte Esterase (Negative) Urine RBC (0-5) /hpf Urine WBC (0-5) /hpf Ur Epithelial Cells (0-5) /hpf Urine Bacteria (FEW) /hpf Hyaline Casts (0-5) /lpf Urine Mucus (FEW) /hpf 04/10/18 04/10/18 04/10/18 Range/Units 00:20 00:20 00:39 WBC (4.23-9.07) K/mm3 RBC (4.63-6.08) M/mm3 Hgb (13.7-17.5) gm/L Hct (40.1-51.0) % MCV (79.0-92.2) fl MCH (25.7-32.2) pg MCHC (32.2-35.5) g/dl RDW Std Deviation (35.1-43.9) fL Plt Count (163-337) K/mm3 MPV (9.4-12.3) fl Neut % (Auto) (34.0-67.9) % Lymph % (Auto) (21.8-53.1) % [place] % (Auto) (5.3-12.2) % Eos % (Auto) (0.8-7.0) Baso % (Auto) (0.1-1.2) % Neut # (Auto) (1.78-5.38) K/mm3 Lymph # (Auto) (1.32-3.57) K/mm3 [place] # (Auto) (0.30-0.82) K/mm3 Eos # (Auto) (0.04-0.54) K/mm3 Baso # (Auto) (0.01-0.08) K/mm3 Neutrophils % (Manual) (40-60) % Band Neutrophils % (0-10) % Lymphocytes % (Manual) (20-40) % Atypical Lymphs % % Monocytes % (Manual) (2-10) % Eosinophils % (Manual) (0.8-7.0) % Basophils % (Manual) (0.2-1.2) Manual Slide Review Toxic Granulation Platelet Estimate Plt Morphology Comment Anisocytosis Microcytosis Macrocytosis RBC Morph Comment ESR (0-15) mm/hr PT (9.5-12.1) SECONDS INR Sodium (136-145) mEq/L Potassium (3.5-5.1) mEq/L Chloride (98-107) mEq/L Carbon Dioxide (21-32) mEq/L Anion Gap (5-15) BUN (7-18) mg/dL Creatinine (0.7-1.3) mg/dL Est Cr Clr Drug Dosing Estimated GFR (MDRD) (>60) mL/min BUN/Creatinine Ratio (14-18) Glucose (83-115) mg/dL Lactic Acid 1.6 (0.4-2.0) mmol/L Calcium (8.5-10.1) mg/dL Magnesium (1.8-2.4) mg/dl Total Bilirubin (0.2-1.0) mg/dL AST (15-37) U/L ALT (16-63) U/L Alkaline Phosphatase (46-116) U/L C-Reactive Protein (<1.0) mg/dL NT-Pro-B Natriuret Pep 754 H (0-450) pg/mL Total Protein (6.4-8.2) g/dl Albumin (3.4-5.0) g/dl Globulin gm/dL Albumin/Globulin Ratio (1-2) Urine Color Yellow (Yellow) Urine Appearance Clear (Clear) Urine pH 6.0 (5.0-8.0) Ur Specific [place] > or = 1.030 (1.005-1.030) Urine Protein 1+ H (Negative) Urine Glucose (UA) Negative (Negative) Urine Ketones Negative (Negative) Urine Occult Blood Negative (Negative) Urine Nitrite Negative (Negative) Urine Bilirubin Negative (Negative) Urine Urobilinogen 1.0 (0.2-1.0) Ur Leukocyte Esterase Negative (Negative) Urine RBC 0-5 (0-5) /hpf Urine WBC 0-5 (0-5) /hpf Ur Epithelial Cells 0-5 (0-5) /hpf Urine Bacteria Rare (FEW) /hpf Hyaline Casts 0-5 (0-5) /lpf Urine Mucus Many H (FEW) /hpf 04/10/18 04/10/18 04/10/18 Range/Units 07:00 07:00 07:00 WBC 9.15 H (4.23-9.07) K/mm3 RBC 4.39 L (4.63-6.08) M/mm3 Hgb 14.0 (13.7-17.5) gm/L Hct 41.0 (40.1-51.0) % MCV 93.4 H (79.0-92.2) fl MCH 31.9 (25.7-32.2) pg MCHC 34.1 (32.2-35.5) g/dl RDW Std Deviation 45.4 H (35.1-43.9) fL Plt Count 158 L (163-337) K/mm3 MPV 8.7 L (9.4-12.3) fl Neut % (Auto) 80.5 H (34.0-67.9) % Lymph % (Auto) 9.6 L (21.8-53.1) % [place] % (Auto) 8.5 (5.3-12.2) % Eos % (Auto) 1.1 (0.8-7.0) Baso % (Auto) 0.1 (0.1-1.2) % Neut # (Auto) 7.36 H (1.78-5.38) K/mm3 Lymph # (Auto) 0.88 L (1.32-3.57) K/mm3 [place] # (Auto) 0.78 (0.30-0.82) K/mm3 Eos # (Auto) 0.10 (0.04-0.54) K/mm3 Baso # (Auto) 0.01 (0.01-0.08) K/mm3 Neutrophils % (Manual) (40-60) % Band Neutrophils % (0-10) % Lymphocytes % (Manual) (20-40) % Atypical Lymphs % % Monocytes % (Manual) (2-10) % Eosinophils % (Manual) (0.8-7.0) % Basophils % (Manual) (0.2-1.2) Manual Slide Review Abnormal smear Toxic Granulation Platelet Estimate Plt Morphology Comment Anisocytosis Microcytosis Macrocytosis RBC Morph Comment ESR (0-15) mm/hr PT 38.5 H (9.5-12.1) SECONDS INR 3.62 Sodium 144 (136-145) mEq/L Potassium 4.0 (3.5-5.1) mEq/L Chloride 107 (98-107) mEq/L Carbon Dioxide 30 (21-32) mEq/L Anion Gap 11.0 (5-15) BUN 22 H (7-18) mg/dL Creatinine 1.4 H (0.7-1.3) mg/dL Est Cr Clr Drug Dosing 40.00 Estimated GFR (MDRD) 49 (>60) mL/min BUN/Creatinine Ratio 15.7 (14-18) Glucose 106 (83-115) mg/dL Lactic Acid (0.4-2.0) mmol/L Calcium 8.9 (8.5-10.1) mg/dL Magnesium 1.8 (1.8-2.4) mg/dl Total Bilirubin (0.2-1.0) mg/dL AST (15-37) U/L ALT (16-63) U/L Alkaline Phosphatase (46-116) U/L C-Reactive Protein 3.5 H* (<1.0) mg/dL NT-Pro-B Natriuret Pep (0-450) pg/mL Total Protein (6.4-8.2) g/dl Albumin (3.4-5.0) g/dl Globulin gm/dL Albumin/Globulin Ratio (1-2) Urine Color (Yellow) Urine Appearance (Clear) Urine pH (5.0-8.0) Ur Specific [place] (1.005-1.030) Urine Protein (Negative) Urine Glucose (UA) (Negative) Urine Ketones (Negative) Urine Occult Blood (Negative) Urine Nitrite (Negative) Urine Bilirubin (Negative) Urine Urobilinogen (0.2-1.0) Ur Leukocyte Esterase (Negative) Urine RBC (0-5) /hpf Urine WBC (0-5) /hpf Ur Epithelial Cells (0-5) /hpf Urine Bacteria (FEW) /hpf Hyaline Casts (0-5) /lpf Urine Mucus (FEW) /hpf Result Diagrams: 04/10/18 07:00 04/10/18 07:00 Orders Last 24hrs: Active Orders 24 hr Category Date Time Status Admission Status [Patient Status] [ADT] Routine ADT 04/10/18 02:25 Active Activity as Tolerated [RC] .Routine Care 04/10/18 04:27 Active Height and Weight [RC] DAILY Care 04/10/18 10:47 Active Intake and Output [RC] QSHIFT Care 04/10/18 10:48 Active Nursing Bedside Swallow Screen [RC] ASDIRECTED Care 04/10/18 09:09 Active Oxygen Therapy [RC] PRN Care 04/10/18 10:47 Active Pulse Oximetry [RC] PRN Care 04/10/18 10:48 Active RT Aerosol Therapy [RC] ASDIRECTED Care 04/10/18 10:49 Active Up With Assistance [RC] ASDIRECTED Care 04/10/18 10:47 Active VTE/DVT Education [RC] PER UNIT ROUTINE Care 04/10/18 10:47 Active Vital Signs [RC] Q4HR Care 04/10/18 04:27 Active Consult to Case Management [CONS] Routine Cons 04/10/18 10:47 Active Consult to General Manager In Training [CONS] Routine Cons 04/10/18 10:47 Active Consult to Spiritual Care [CONS] Routine Cons 04/10/18 10:47 Active OT Evaluation and Treatment [CONS] Routine Cons 04/10/18 10:47 Active PT Evaluation and Treatment [CONS] Routine Cons 04/10/18 10:47 Active Respiratory Care Assess and Treatment [CONS] Routine Cons 04/10/18 10:47 Active Heart Healthy Diet [DIET] Diet 04/10/18 Lunch Active BASIC METABOLIC PANEL,BMP [CHEM] AM Lab 04/11/18 05:11 Ordered BASIC METABOLIC PANEL,BMP [CHEM] AM Lab 04/12/18 05:11 Ordered BASIC METABOLIC PANEL,BMP [CHEM] AM Lab 04/13/18 05:11 Ordered BASIC METABOLIC PANEL,BMP [CHEM] AM Lab 04/14/18 05:11 Ordered CBC WITH AUTO DIFF [HEME] AM Lab 04/11/18 05:11 Ordered CBC WITH AUTO DIFF [HEME] AM Lab 04/12/18 05:11 Ordered CBC WITH AUTO DIFF [HEME] AM Lab 04/13/18 05:11 Ordered CBC WITH AUTO DIFF [HEME] AM Lab 04/14/18 05:11 Ordered CRP [C-REACTIVE PROTEIN] [CHEM] AM Lab 04/11/18 05:11 Ordered CRP [C-REACTIVE PROTEIN] [CHEM] AM Lab 04/12/18 05:11 Ordered CRP [C-REACTIVE PROTEIN] [CHEM] AM Lab 04/13/18 05:11 Ordered CRP [C-REACTIVE PROTEIN] [CHEM] AM Lab 04/14/18 05:11 Ordered CULTURE BLOOD [BC] Stat Lab 04/10/18 00:20 Received CULTURE BLOOD [BC] Stat Lab 04/10/18 00:33 Received INR,PT,PROTHROMBIN TIME [COAG] AM Lab 04/11/18 05:11 Ordered INR,PT,PROTHROMBIN TIME [COAG] AM Lab 04/12/18 05:11 Ordered INR,PT,PROTHROMBIN TIME [COAG] AM Lab 04/13/18 05:11 Ordered INR,PT,PROTHROMBIN TIME [COAG] AM Lab 04/14/18 05:11 Ordered MAGNESIUM [CHEM] AM Lab 04/11/18 05:11 Ordered MAGNESIUM [CHEM] AM Lab 04/12/18 05:11 Ordered MAGNESIUM [CHEM] AM Lab 04/13/18 05:11 Ordered MAGNESIUM [CHEM] AM Lab 04/14/18 05:11 Ordered UA W/MICROSCOPIC [URIN] Stat Lab 04/10/18 00:39 Ordered Acetaminophen [Tylenol] Med 04/10/18 10:47 Active 650 mg PO Q4H PRN Albuterol/Ipratropium [DuoNeb 3.0-0.5 MG/3 ML] Med 04/10/18 10:47 Active 3 ml NEB Q4H PRN Allopurinol [Zyloprim] Med 04/10/18 11:00 Active 50 mg PO DAILY Bisacodyl [Dulcolax] Med 04/10/18 10:47 Active 5 mg PO DAILY PRN Docusate Sodium [Colace] Med 04/10/18 10:47 Active 100 mg PO BID PRN Docusate Sodium/Sennosides [Senna Plus] Med 04/10/18 10:47 Active 1 tab PO BID PRN Furosemide [Lasix] Med 04/10/18 11:00 Active 60 mg PO DAILY Levothyroxine [Synthroid] Med 04/11/18 06:00 Active 50 mcg PO ACBREAKFAST Magnesium Rep Pharmacy to Dose [Pharmacy to Dose - Med 04/10/18 11:00 Active Magnesium Replacement] 1 dose .XX ASDIRECTED Metoprolol Succinate [Toprol XL] Med 04/10/18 11:00 Active 100 mg PO DAILY Metoprolol Tartrate [Lopressor] Med 04/10/18 10:56 Active 5 mg IVPUSH Q4H PRN Ondansetron [Zofran ODT] Med 04/10/18 10:47 Active 4 mg PO Q6H PRN Ondansetron [Zofran] Med 04/10/18 10:47 Active 4 mg IV Q6H PRN Patient's Own Medication [Ptom] Med 04/10/18 11:00 Active 0 each TOP DAILY Polyethylene Glycol 3350 [MiraLAX] Med 04/10/18 10:47 Active 17 gm PO DAILY PRN Potassium Rep Pharmacy to Dose [Pharmacy to Dose - Med 04/10/18 11:00 Active Potassium Replacement] 1 dose .XX ASDIRECTED Sodium Chloride 0.9% [Saline Flush] Med 04/10/18 04:27 Active 10 ml FLUSH ASDIRECTED PRN Spironolactone [Aldactone] Med 04/10/18 11:00 Active 25 mg PO DAILY Warfarin [Coumadin] Med 04/10/18 18:00 Active 10 mg PO SuMoWeFrSa Warfarin [Coumadin] Med 04/11/18 18:00 Active 5 mg PO TuWe cefTRIAXone [Rocephin] 1 gm Med 04/11/18 01:00 Active Sodium Chloride 0.9% [Normal Saline] 100 ml IV Q24H hydrALAZINE [Apresoline] Med 04/10/18 10:56 Active 10 mg IVPUSH Q6H PRN Blood Culture x2 Reflex Set [OM.PC] Stat Oth 04/10/18 00:00 Ordered Saline Lock Insert [OM.PC] Routine Oth 04/10/18 04:27 Ordered Resuscitation Status Routine Resus Stat 04/10/18 04:26 Ordered EKG 12 Lead [EK] Stat Ther 04/10/18 01:38 Ordered Medication Orders Acetaminophen (Tylenol) 650 mg PO Q4H PRN PRN Reason: Pain (Mild 1-3)/fever Albuterol/Ipratropium (Duoneb 3.0-0.5 Mg/3 Ml) 3 ml NEB Q4H PRN PRN Reason: Shortness Of Breath/wheezing Allopurinol (Zyloprim) 50 mg PO DAILY [facility] Last Admin: 04/10/18 11:26 Dose: 50 mg Bisacodyl (Dulcolax) 5 mg PO DAILY PRN PRN Reason: Constipation Docusate Sodium (Colace) 100 mg PO BID PRN PRN Reason: Constipation Furosemide (Lasix) 60 mg PO DAILY [facility] Last Admin: 04/10/18 11:26 Dose: 60 mg Hydralazine HCl (Apresoline) 10 mg IVPUSH Q6H PRN PRN Reason: Hypertension Ceftriaxone Sodium 1 gm/ (Sodium Chloride) 100 mls @ 200 mls/hr IV Q24H [facility] Levothyroxine Sodium (Synthroid) 50 mcg PO ACBREAKFAST [facility] Magnesium Sulfate (Pharmacy To Dose - Magnesium Replacement) 1 dose .XX ASDIRECTED [facility] Metoprolol Succinate (Toprol Xl) 100 mg PO DAILY [facility] Last Admin: 04/10/18 11:27 Dose: Metoprolol Tartrate (Lopressor) 5 mg IVPUSH Q4H PRN PRN Reason: Tachycardia Ondansetron HCl (Zofran Odt) 4 mg PO Q6H PRN PRN Reason: nausea, able to take PO Ondansetron HCl (Zofran) 4 mg IV Q6H PRN PRN Reason: Nausea/Vomiting Rivastigmine [ (Rivastigmine] 1 Each) 0 each TOP DAILY [facility] Polyethylene Glycol (Miralax) 17 gm PO DAILY PRN PRN Reason: Constipation Potassium Chloride (Pharmacy To Dose - Potassium Replacement) 1 dose .XX ASDIRECTED [facility] Senna/Docusate Sodium (Senna Plus) 1 tab PO BID PRN PRN Reason: Constipation Sodium Chloride (Saline Flush) 10 ml FLUSH ASDIRECTED PRN PRN Reason: Keep Vein Open Spironolactone (Aldactone) 25 mg PO DAILY [facility] Last Admin: 04/10/18 11:26 Dose: 25 mg Warfarin Sodium (Coumadin) 10 mg PO We [facility] Warfarin Sodium (Coumadin) 5 mg PO [facility]
[2018-04-10] MEDS: RIVASTIGMINE 9.5 MG TOP SCH (16:12)
[2018-04-10] MEDS ORDERED: Warfarin 10 MG Tab PO SCH (18:00)
[2018-04-10] MEDS ORDERED: Warfarin Sliding Scale PO SCH (18:00)
--- NOTE | 2018-04-10 18:35 | PCM.HP ---
H&P History of Present Illness - General Date of Service: 04/10/18 Admit Problem/Dx: Admission Diagnosis/Problem Admission Diagnosis/Problem Pneumonia Source of Information: Old Records, Provider History Limitations: Reports: Altered Mental Status (Confused) - History of Present Illness Initial Comments - Free Text/Narative: This is an 77 yo male with past medical h/o CHF, pacemaker, Lewy Body Dementia, gout, impaired vision, hypothyroid, h/o bile duct CA s/p Whipple, anticoagulation therapy who comes in for fever of unknown origin and dyspnea. He was seen on 04/07 in the ED after getting a tooth pulled and he had increased confusion. ER doctor changed his medication to help lessen the confusion. Seroquel and Namenda were stopped, Lasix was increased from 40 to 60, and Sprinolactone was added. No current pain. He denies F/C, SOB, cough, nausea, vomiting, diarrhea, chest pain, or GI/ complaints. His symptoms improved after receiving O2 and antibiotics in the ED. His initial workup in the ED showed a CBC remarkable for WBC 9.3, RDW 45.5, MPV 9.2, Neut 87 % with no bandemia, Lymph 7%, ESR 33. His coagulation study shows PT 38.5, INR 3.62. His chemistry is remarkable for BUN 22, Cr 1.5, GFR 45, Glu 141, Bili 1.3 , AST 68, Alk Phos 127, CRP 2.2, BNP 754. U/A unimpressive for UTI. CXR read by ER physician as RUL PNA; formal read shows no acute abnormalities. He is subsequently admitted to the medical floor. He is Full code. His PCP is Dr. Maravilla. - Related Data Allergies/Adverse Reactions: Allergies Allergy/AdvReac Type Severity Reaction Status Date / Time procaine Allergy Unknown unknown Verified 04/10/18 03:28 Home Medications: Home Meds Allopurinol [Zyloprim] 50 mg PO DAILY 04/07/18 [History] Furosemide 60 mg PO DAILY 04/07/18 [History] Levothyroxine [Synthroid] 50 mcg PO ACBREAKFAST 04/07/18 [History] Metoprolol Succinate [Toprol XL 100mg] 100 mg PO DAILY 04/07/18 [History] Rivastigmine 1 each TD DAILY 04/07/18 [History] Spironolactone [Aldactone] 25 mg PO DAILY #21 tab 04/07/18 [Rx] Warfarin Sodium [Jantoven] 10 mg PO DAILY 04/10/18 [History] Past Medical History HEENT History: Reports: Impaired Vision Other HEENT History: wears glasses Cardiovascular History: Reports: Heart Failure, Pacemaker (With battery change about 2 years ago.) Respiratory History: Reports: Asthma Gastrointestinal History: Reports: Colon Polyp Other Gastrointestinal History: bile duct cancer, 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 new bile duct is made out of intestinal tract Genitourinary History: Reports: Other (See Below) Other Genitourinary History: lately patient has had some incontinence issues Musculoskeletal History: Reports: Gout Neurological History: Reports: Other (See Below) (Has Lewy body dementia.) Other Neuro History: lewie body dementia Psychiatric History: Reports: Dementia Endocrine/Metabolic History: Reports: Hypothyroidism Hematologic History: Reports: Anticoagulation Therapy Other Oncologic History: bile duct 10 years ago Dermatologic History: Reports: Other (See Below) Other Dermatologic History: discolored lower legs bilaterally, has had this for a long time - Past Surgical History HEENT Surgical History: Reports: Other (See Below) Other HEENT Surgeries/Procedures: teeth pulled Social & Family History - Family History Family Medical History: Noncontributory - Tobacco Use Smoking Status *Q: Former Smoker Used Tobacco, but Quit: Yes Month/Year Tobacco Last Used: 40 years ago - Caffeine Use Caffeine Use: Reports: None - Recreational Drug Use Recreational Drug Use: No - Living Situation & Occupation Living situation: Reports: , with Family ( cares for him.) Occupation: Retired H&P Review of Systems - Review of Systems: Review Of Systems: See Below Free Text/Narrative: Pt is confused when I talk to him, A+O x2, disoriented to time and situation. No family to talk to right now. He currently has no complaints. General: Reports: No Symptoms. Denies: Fever, Chills HEENT: Reports: Glasses Pulmonary: Reports: No Symptoms. Denies: Shortness of Breath, Cough Cardiovascular: Reports: No Symptoms. Denies: Chest Pain Gastrointestinal: Reports: No Symptoms. Denies: Abdominal Pain, Diarrhea, Nausea, Vomiting Genitourinary: Reports: No Symptoms. Denies: Dysuria, Frequency, Burning, Pain , Urgency Musculoskeletal: Reports: No Symptoms Skin: Reports: No Symptoms Psychiatric: Reports: Confusion (A+O x 2, disoriented to time and situation. Was trying to pull out his IV when I came into the room. ) Neurological: Reports: Confusion (A+O x 2, disoriented to time and situation. Was trying to pull out his IV when I came into the room. ) Hematologic/Lymphatic: Reports: No Symptoms Immunologic: Reports: No Symptoms Exam - Exam Exam: See Below - Vital Signs Vital Signs: Last Vital Signs Temp 99.0 F 04/10/18 15:59 Pulse 62 04/10/18 15:59 Resp 20 04/10/18 15:59 BP 139/73 04/10/18 15:59 Pulse Ox 97 04/10/18 15:59 Weight: 186 lb 1.6 oz - Exam Quality Assessment: DVT Prophylaxis. No: Supplemental Oxygen General: Alert, Oriented (x2 person and place only. Disoriented to time and situation. ), Cooperative HEENT: PERRLA, Hearing Intact, Mucosa Moist & [place], Nares Patent, Normal Nasal Septum, Posterior Pharynx Clear, Conjunctiva Clear, EOMI, EACs Clear, TMs Clear Neck: Supple, Trachea Midline, 2 Lungs: Clear to Auscultation, Normal Respiratory Effort Cardiovascular: Regular Rate, Regular Rhythm GI/Abdominal Exam: Normal Bowel Sounds, Soft, Non-Tender, No Organomegaly, No Distention, No Abnormal Bruit, No Mass, Pelvis Stable (Male) Exam: Deferred Rectal (Males) Exam: Deferred Back Exam: Normal Inspection, Full Range of Motion, NT Extremities: Normal Inspection, Normal Range of Motion, Non-Tender, No Pedal Edema, Normal Capillary Refill Peripheral Pulses: 2+: Posterior Tibial (L), Posterior Tibial (R), Dorsalis Pedis (L), Dorsalis Pedis (R) Skin: Warm, Dry, Intact Neurological: Cranial Nerves Intact (grossly) Neuro Extensive - Mental Status: Alert, Disorientation to Time (and situation). No: Disorientation to Person, Disorientation to Place Psychiatric: Alert, Other (Confused) - Patient Data Lab Results Last 24 hrs: Laboratory Results - last 24 hr 04/10/18 04/10/18 04/10/18 Range/Units 00:20 00:20 00:20 WBC 9.30 H (4.23-9.07) K/mm3 RBC 4.70 (4.63-6.08) M/mm3 Hgb 14.8 (13.7-17.5) gm/L Hct 43.3 (40.1-51.0) % MCV 92.1 (79.0-92.2) fl MCH 31.5 (25.7-32.2) pg MCHC 34.2 (32.2-35.5) g/dl RDW Std Deviation 45.5 H (35.1-43.9) fL Plt Count 182 (163-337) K/mm3 MPV 9.2 L (9.4-12.3) fl Neut % (Auto) (34.0-67.9) % Lymph % (Auto) (21.8-53.1) % [place] % (Auto) (5.3-12.2) % Eos % (Auto) (0.8-7.0) Baso % (Auto) (0.1-1.2) % Neut # (Auto) (1.78-5.38) K/mm3 Lymph # (Auto) (1.32-3.57) K/mm3 [place] # (Auto) (0.30-0.82) K/mm3 Eos # (Auto) (0.04-0.54) K/mm3 Baso # (Auto) (0.01-0.08) K/mm3 Neutrophils % (Manual) 87 H (40-60) % Band Neutrophils % 0 (0-10) % Lymphocytes % (Manual) 7 L (20-40) % Atypical Lymphs % 0 % Monocytes % (Manual) 6 (2-10) % Eosinophils % (Manual) 0 L (0.8-7.0) % Basophils % (Manual) 0 L (0.2-1.2) Manual Slide Review Toxic Granulation 1+ slight Platelet Estimate Adequate Plt Morphology Comment Normal Anisocytosis 1+ slight Microcytosis 1+ slight Macrocytosis 1+ slight RBC Morph Comment Abnormal ESR 33 H (0-15) mm/hr PT (9.5-12.1) SECONDS INR Sodium 141 (136-145) mEq/L Potassium 4.0 (3.5-5.1) mEq/L Chloride 104 (98-107) mEq/L Carbon Dioxide 28 (21-32) mEq/L Anion Gap 13.0 (5-15) BUN 22 H (7-18) mg/dL Creatinine 1.5 H (0.7-1.3) mg/dL Est Cr Clr Drug Dosing TNP Estimated GFR (MDRD) 45 (>60) mL/min BUN/Creatinine Ratio 14.7 (14-18) Glucose 141 H (83-115) mg/dL Lactic Acid (0.4-2.0) mmol/L Calcium 8.9 (8.5-10.1) mg/dL Magnesium (1.8-2.4) mg/dl Total Bilirubin 1.3 H (0.2-1.0) mg/dL AST 68 H (15-37) U/L ALT 60 (16-63) U/L Alkaline Phosphatase 127 H (46-116) U/L C-Reactive Protein 2.2 H* (<1.0) mg/dL NT-Pro-B Natriuret Pep (0-450) pg/mL Total Protein 7.2 (6.4-8.2) g/dl Albumin 3.5 (3.4-5.0) g/dl Globulin 3.7 gm/dL Albumin/Globulin Ratio 1.0 (1-2) Urine Color (Yellow) Urine Appearance (Clear) Urine pH (5.0-8.0) Ur Specific [place] (1.005-1.030) Urine Protein (Negative) Urine Glucose (UA) (Negative) Urine Ketones (Negative) Urine Occult Blood (Negative) Urine Nitrite (Negative) Urine Bilirubin (Negative) Urine Urobilinogen (0.2-1.0) Ur Leukocyte Esterase (Negative) Urine RBC (0-5) /hpf Urine WBC (0-5) /hpf Ur Epithelial Cells (0-5) /hpf Urine Bacteria (FEW) /hpf Hyaline Casts (0-5) /lpf Urine Mucus (FEW) /hpf 04/10/18 04/10/18 04/10/18 Range/Units 00:20 00:20 00:39 WBC (4.23-9.07) K/mm3 RBC (4.63-6.08) M/mm3 Hgb (13.7-17.5) gm/L Hct (40.1-51.0) % MCV (79.0-92.2) fl MCH (25.7-32.2) pg MCHC (32.2-35.5) g/dl RDW Std Deviation (35.1-43.9) fL Plt Count (163-337) K/mm3 MPV (9.4-12.3) fl Neut % (Auto) (34.0-67.9) % Lymph % (Auto) (21.8-53.1) % [place] % (Auto) (5.3-12.2) % Eos % (Auto) (0.8-7.0) Baso % (Auto) (0.1-1.2) % Neut # (Auto) (1.78-5.38) K/mm3 Lymph # (Auto) (1.32-3.57) K/mm3 [place] # (Auto) (0.30-0.82) K/mm3 Eos # (Auto) (0.04-0.54) K/mm3 Baso # (Auto) (0.01-0.08) K/mm3 Neutrophils % (Manual) (40-60) % Band Neutrophils % (0-10) % Lymphocytes % (Manual) (20-40) % Atypical Lymphs % % Monocytes % (Manual) (2-10) % Eosinophils % (Manual) (0.8-7.0) % Basophils % (Manual) (0.2-1.2) Manual Slide Review Toxic Granulation Platelet Estimate Plt Morphology Comment Anisocytosis Microcytosis Macrocytosis RBC Morph Comment ESR (0-15) mm/hr PT (9.5-12.1) SECONDS INR Sodium (136-145) mEq/L Potassium (3.5-5.1) mEq/L Chloride (98-107) mEq/L Carbon Dioxide (21-32) mEq/L Anion Gap (5-15) BUN (7-18) mg/dL Creatinine (0.7-1.3) mg/dL Est Cr Clr Drug Dosing Estimated GFR (MDRD) (>60) mL/min BUN/Creatinine Ratio (14-18) Glucose (83-115) mg/dL Lactic Acid 1.6 (0.4-2.0) mmol/L Calcium (8.5-10.1) mg/dL Magnesium (1.8-2.4) mg/dl Total Bilirubin (0.2-1.0) mg/dL AST (15-37) U/L ALT (16-63) U/L Alkaline Phosphatase (46-116) U/L C-Reactive Protein (<1.0) mg/dL NT-Pro-B Natriuret Pep 754 H (0-450) pg/mL Total Protein (6.4-8.2) g/dl Albumin (3.4-5.0) g/dl Globulin gm/dL Albumin/Globulin Ratio (1-2) Urine Color Yellow (Yellow) Urine Appearance Clear (Clear) Urine pH 6.0 (5.0-8.0) Ur Specific [place] > or = 1.030 (1.005-1.030) Urine Protein 1+ H (Negative) Urine Glucose (UA) Negative (Negative) Urine Ketones Negative (Negative) Urine Occult Blood Negative (Negative) Urine Nitrite Negative (Negative) Urine Bilirubin Negative (Negative) Urine Urobilinogen 1.0 (0.2-1.0) Ur Leukocyte Esterase Negative (Negative) Urine RBC 0-5 (0-5) /hpf Urine WBC 0-5 (0-5) /hpf Ur Epithelial Cells 0-5 (0-5) /hpf Urine Bacteria Rare (FEW) /hpf Hyaline Casts 0-5 (0-5) /lpf Urine Mucus Many H (FEW) /hpf 04/10/18 04/10/18 04/10/18 Range/Units 07:00 07:00 07:00 WBC 9.15 H (4.23-9.07) K/mm3 RBC 4.39 L (4.63-6.08) M/mm3 Hgb 14.0 (13.7-17.5) gm/L Hct 41.0 (40.1-51.0) % MCV 93.4 H (79.0-92.2) fl MCH 31.9 (25.7-32.2) pg MCHC 34.1 (32.2-35.5) g/dl RDW Std Deviation 45.4 H (35.1-43.9) fL Plt Count 158 L (163-337) K/mm3 MPV 8.7 L (9.4-12.3) fl Neut % (Auto) 80.5 H (34.0-67.9) % Lymph % (Auto) 9.6 L (21.8-53.1) % [place] % (Auto) 8.5 (5.3-12.2) % Eos % (Auto) 1.1 (0.8-7.0) Baso % (Auto) 0.1 (0.1-1.2) % Neut # (Auto) 7.36 H (1.78-5.38) K/mm3 Lymph # (Auto) 0.88 L (1.32-3.57) K/mm3 [place] # (Auto) 0.78 (0.30-0.82) K/mm3 Eos # (Auto) 0.10 (0.04-0.54) K/mm3 Baso # (Auto) 0.01 (0.01-0.08) K/mm3 Neutrophils % (Manual) (40-60) % Band Neutrophils % (0-10) % Lymphocytes % (Manual) (20-40) % Atypical Lymphs % % Monocytes % (Manual) (2-10) % Eosinophils % (Manual) (0.8-7.0) % Basophils % (Manual) (0.2-1.2) Manual Slide Review Abnormal smear Toxic Granulation Platelet Estimate Plt Morphology Comment Anisocytosis Microcytosis Macrocytosis RBC Morph Comment ESR (0-15) mm/hr PT 38.5 H (9.5-12.1) SECONDS INR 3.62 Sodium 144 (136-145) mEq/L Potassium 4.0 (3.5-5.1) mEq/L Chloride 107 (98-107) mEq/L Carbon Dioxide 30 (21-32) mEq/L Anion Gap 11.0 (5-15) BUN 22 H (7-18) mg/dL Creatinine 1.4 H (0.7-1.3) mg/dL Est Cr Clr Drug Dosing 40.00 Estimated GFR (MDRD) 49 (>60) mL/min BUN/Creatinine Ratio 15.7 (14-18) Glucose 106 (83-115) mg/dL Lactic Acid (0.4-2.0) mmol/L Calcium 8.9 (8.5-10.1) mg/dL Magnesium 1.8 (1.8-2.4) mg/dl Total Bilirubin (0.2-1.0) mg/dL AST (15-37) U/L ALT (16-63) U/L Alkaline Phosphatase (46-116) U/L C-Reactive Protein 3.5 H* (<1.0) mg/dL NT-Pro-B Natriuret Pep (0-450) pg/mL Total Protein (6.4-8.2) g/dl Albumin (3.4-5.0) g/dl Globulin gm/dL Albumin/Globulin Ratio (1-2) Urine Color (Yellow) Urine Appearance (Clear) Urine pH (5.0-8.0) Ur Specific [place] (1.005-1.030) Urine Protein (Negative) Urine Glucose (UA) (Negative) Urine Ketones (Negative) Urine Occult Blood (Negative) Urine Nitrite (Negative) Urine Bilirubin (Negative) Urine Urobilinogen (0.2-1.0) Ur Leukocyte Esterase (Negative) Urine RBC (0-5) /hpf Urine WBC (0-5) /hpf Ur Epithelial Cells (0-5) /hpf Urine Bacteria (FEW) /hpf Hyaline Casts (0-5) /lpf Urine Mucus (FEW) /hpf Result Diagrams: 04/10/18 07:00 04/10/18 07:00 Yunior Results Last 24 hrs: Microbiology 04/10/18 00:33 Anaerobic Blood Culture - Preliminary Blood - Venous - Lab Draw Gram Negative Rods - Problem List (1) Fever, unknown origin SNOMED Code(s): 8801495 ICD Code: R50.9 - FEVER, UNSPECIFIED Status: Acute Priority: High Current Visit: Yes (2) Hypoxia SNOMED Code(s): 748403166 ICD Code: R09.02 - HYPOXEMIA Status: Resolved Priority: High Current Visit: No (3) Severe dementia SNOMED Code(s): 44031089 ICD Code: F03.90 - UNSPECIFIED DEMENTIA WITHOUT BEHAVIORAL DISTURBANCE Status: Chronic Priority: Low Current Visit: Yes Problem List Initiated/Reviewed/Updated: Yes Orders Last 24hrs: Active Orders 24 hr Category Date Time Status Admission Status [Patient Status] [ADT] Routine ADT 04/10/18 02:25 Active Activity as Tolerated [RC] BID Care 04/10/18 04:27 Active Height and Weight [RC] DAILY Care 04/10/18 10:47 Active Intake and Output [RC] QSHIFT Care 04/10/18 10:48 Active Nursing Bedside Swallow Screen [RC] 1600 Care 04/10/18 09:09 Active RT Aerosol Therapy [RC] ASDIRECTED Care 04/10/18 10:49 Active Up With Assistance [RC] BID Care 04/10/18 10:47 Active VTE/DVT Education [RC] PER UNIT ROUTINE Care 04/10/18 10:47 Active Vital Signs [RC] Q4HR Care 04/10/18 04:27 Active Consult to Case Management [CONS] Routine Cons 04/10/18 10:47 Active Consult to Cookie Mixer Helper [CONS] Routine Cons 04/10/18 10:47 Active Consult to Spiritual Care [CONS] Routine Cons 04/10/18 10:47 Active OT Evaluation and Treatment [CONS] Routine Cons 04/10/18 10:47 Active PT Evaluation and Treatment [CONS] Routine Cons 04/10/18 10:47 Active Respiratory Care Assess and Treatment [CONS] Routine Cons 04/10/18 10:47 Active Heart Healthy Diet [DIET] Diet 04/10/18 Lunch Active BASIC METABOLIC PANEL,BMP [CHEM] AM Lab 04/11/18 05:11 Ordered BASIC METABOLIC PANEL,BMP [CHEM] AM Lab 04/12/18 05:11 Ordered BASIC METABOLIC PANEL,BMP [CHEM] AM Lab 04/13/18 05:11 Ordered BASIC METABOLIC PANEL,BMP [CHEM] AM Lab 04/14/18 05:11 Ordered CBC WITH AUTO DIFF [HEME] AM Lab 04/11/18 05:11 Ordered CBC WITH AUTO DIFF [HEME] AM Lab 04/12/18 05:11 Ordered CBC WITH AUTO DIFF [HEME] AM Lab 04/13/18 05:11 Ordered CBC WITH AUTO DIFF [HEME] AM Lab 04/14/18 05:11 Ordered CRP [C-REACTIVE PROTEIN] [CHEM] AM Lab 04/11/18 05:11 Ordered CRP [C-REACTIVE PROTEIN] [CHEM] AM Lab 04/12/18 05:11 Ordered CRP [C-REACTIVE PROTEIN] [CHEM] AM Lab 04/13/18 05:11 Ordered CRP [C-REACTIVE PROTEIN] [CHEM] AM Lab 04/14/18 05:11 Ordered CULTURE BLOOD [BC] Stat Lab 04/10/18 00:20 Received CULTURE BLOOD [BC] Stat Lab 04/10/18 00:33 Results INR,PT,PROTHROMBIN TIME [COAG] AM Lab 04/11/18 05:11 Ordered INR,PT,PROTHROMBIN TIME [COAG] AM Lab 04/12/18 05:11 Ordered INR,PT,PROTHROMBIN TIME [COAG] AM Lab 04/13/18 05:11 Ordered INR,PT,PROTHROMBIN TIME [COAG] AM Lab 04/14/18 05:11 Ordered MAGNESIUM [CHEM] AM Lab 04/11/18 05:11 Ordered MAGNESIUM [CHEM] AM Lab 04/12/18 05:11 Ordered MAGNESIUM [CHEM] AM Lab 04/13/18 05:11 Ordered MAGNESIUM [CHEM] AM Lab 04/14/18 05:11 Ordered UA W/MICROSCOPIC [URIN] Stat Lab 04/10/18 00:39 Ordered Acetaminophen [Tylenol] Med 04/10/18 10:47 Active 650 mg PO Q4H PRN Albuterol/Ipratropium [DuoNeb 3.0-0.5 MG/3 ML] Med 04/10/18 10:47 Active 3 ml NEB Q4H PRN Allopurinol [Zyloprim] Med 04/10/18 11:00 Active 50 mg PO DAILY Bisacodyl [Dulcolax] Med 04/10/18 10:47 Active 5 mg PO DAILY PRN Docusate Sodium [Colace] Med 04/10/18 10:47 Active 100 mg PO BID PRN Docusate Sodium/Sennosides [Senna Plus] Med 04/10/18 10:47 Active 1 tab PO BID PRN Furosemide [Lasix] Med 04/10/18 11:00 Active 60 mg PO DAILY Levothyroxine [Synthroid] Med 04/11/18 06:00 Active 50 mcg PO ACBREAKFAST Magnesium Rep Pharmacy to Dose [Pharmacy to Dose - Med 04/10/18 11:00 Active Magnesium Replacement] 1 dose .XX ASDIRECTED Metoprolol Succinate [Toprol XL] Med 04/10/18 11:00 Active 100 mg PO DAILY Metoprolol Tartrate [Lopressor] Med 04/10/18 10:56 Active 5 mg IVPUSH Q4H PRN Ondansetron [Zofran ODT] Med 04/10/18 10:47 Active 4 mg PO Q6H PRN Ondansetron [Zofran] Med 04/10/18 10:47 Active 4 mg IV Q6H PRN Patient's Own Medication [Ptom] Med 04/10/18 16:00 Active 0 each TOP DAILY@1600 Polyethylene Glycol 3350 [MiraLAX] Med 04/10/18 10:47 Active 17 gm PO DAILY PRN Potassium Rep Pharmacy to Dose [Pharmacy to Dose - Med 04/10/18 11:00 Active Potassium Replacement] 1 dose .XX ASDIRECTED Sodium Chloride 0.9% [Saline Flush] Med 04/10/18 04:27 Active 10 ml FLUSH ASDIRECTED PRN Spironolactone [Aldactone] Med 04/10/18 11:00 Active 25 mg PO DAILY Warfarin Pharmacy to Dose [Pharmacy to Dose - Warfarin] Med 04/10/18 13:00 Active 0 dose .XX ASDIRECTED PRN Warfarin Sliding Scale [Coumadin Sliding Scale] Med 04/10/18 18:00 Active 0 each PO QPM cefTRIAXone [Rocephin] 1 gm Med 04/11/18 01:00 Active Sodium Chloride 0.9% [Normal Saline] 100 ml IV Q24H hydrALAZINE [Apresoline] Med 04/10/18 10:56 Active 10 mg IVPUSH Q6H PRN Blood Culture x2 Reflex Set [OM.PC] Stat Oth 04/10/18 00:00 Ordered Saline Lock Insert [OM.PC] Routine Oth 04/10/18 04:27 Ordered Resuscitation Status Routine Resus Stat 04/10/18 04:26 Ordered EKG 12 Lead [EK] Stat Ther 04/10/18 01:38 Ordered Medication Orders Acetaminophen (Tylenol) 650 mg PO Q4H PRN PRN Reason: Pain (Mild 1-3)/fever Albuterol/Ipratropium (Duoneb 3.0-0.5 Mg/3 Ml) 3 ml NEB Q4H PRN PRN Reason: Shortness Of Breath/wheezing Allopurinol (Zyloprim) [address] [facility] Last Admin: 04/10/18 11:26 Dose: 50 mg Bisacodyl (Dulcolax) 5 mg PO DAILY PRN PRN Reason: Constipation Docusate Sodium (Colace) 100 mg PO BID PRN PRN Reason: Constipation Furosemide (Lasix) [address] [facility] Last Admin: 04/10/18 11:26 Dose: 60 mg Hydralazine HCl (Apresoline) 10 mg IVPUSH Q6H PRN PRN Reason: Hypertension Ceftriaxone Sodium 1 gm/ (Sodium Chloride) 100 mls @ 200 mls/hr IV Q24H [facility] Levothyroxine Sodium (Synthroid) [address] [facility] Magnesium Sulfate (Pharmacy To Dose - Magnesium Replacement) [address] [facility] Metoprolol Succinate (Toprol Xl) [address] [facility] Last Admin: 04/10/18 11:27 Dose: Metoprolol Tartrate (Lopressor) 5 mg IVPUSH Q4H PRN PRN Reason: Tachycardia Ondansetron HCl (Zofran Odt) 4 mg PO Q6H PRN PRN Reason: nausea, able to take PO Ondansetron HCl (Zofran) 4 mg IV Q6H PRN PRN Reason: Nausea/Vomiting Rivastigmine 9.5mg (PatchOwn Med) 0 each TOP DAILY@1600 [facility] Last Admin: 04/10/18 16:12 Dose: 1 each Polyethylene Glycol (Miralax) 17 gm PO DAILY PRN PRN Reason: Constipation Potassium Chloride (Pharmacy To Dose - Potassium Replacement) [address] [facility] Senna/Docusate Sodium (Senna Plus) 1 tab PO BID PRN PRN Reason: Constipation Sodium Chloride (Saline Flush) 10 ml FLUSH ASDIRECTED PRN PRN Reason: Keep Vein Open Spironolactone (Aldactone) [address] [facility] Last Admin: 04/10/18 11:26 Dose: 25 mg Warfarin Sodium (Pharmacy To Dose - Warfarin) 0 dose .XX ASDIRECTED PRN PRN Reason: RX TO DOSE WARFARIN Warfarin Sodium (Coumadin Sliding Scale) [address] [facility] Stop: 04/10/18 21:00 Assessment/Plan Comment:: I/P: Acute: Fever of Unknown Origin, Improved * Risk factor: tooth pulled 04/05; had come into ED 04/07 for increased confusion * 101.8 rectally yesterday --> 99.7 now * WBC slightly elevated at 9.3, ESR 33, CRP 2.2--> 3.5 * CXR --> shows no acute abnormality * U/A negative for UTI * Sepsis Protocol * Lactic Acid normal at 1.6 * Blood cultures--> 1 growing Gram - rods after 12H; most likely d/t contamination * Repeat Blood cultures * Rocephin started in ED--> D/C; there seems to be no clear source of infection * Tylenol given in ED--> Continue PRN Diarrhea * intermittent x2 weeks per * No blood in stool * Florastor Confusion * Acute on Chronic (h/o Lewy Body Dementia); increased per * Risk factor: recent change in medications * Was recently started on Seroquel; per records, 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 * Was in ED 04/07 for increased confusion and was taken off both Seroquel and Namenda by ED provider * would like to restart Namenda here as she states he seems worse without it; will bring in the bottle tomorrow AM * BOX ANNEALER swallow eval Resolved: Dyspnea * Was dyspneic on scene according to EMS, 93% RA * No cough, CXR clear * Now 97% RA Chronic: CHF * BNP 754 * Continue Lasix and Spironolactone Pacemaker Lewy Body Dementia Gout Impaired vision Hypothyroid Anticoagulation therapy Bile Duct CA s/p Whipple Plan: Transferred to medical floor He remains stable and continues to improve clinically Other orders as indicated above Routine AM labs Heart Healthy Diet SW/CM for discharge planning --> may need SNF placement; also code status needs to be addressed PT/OT DVT Prophylaxis: Warfarin GI Prophylaxis: Pepcid Ambulate with assistance Code Status: Full Code; PCP: Dr. Maravilla is POA
[2018-04-10] MEDS: Famotidine 20 MG Tab PO SCH (23:27)
[2018-04-11] MEDS ORDERED: cefTRIAXone 1 GM in Sodium Chloride 0.9% 100 ML IV SCH (01:00)
[2018-04-11] MEDS: Levothyroxine 50 MCG Tab PO SCH (05:12)
--- NOTE | 2018-04-11 07:00 | ER ---
REASON FOR ADMISSION: Dementia and pneumonia. HISTORY: This is a 77-year-old man who was brought to the emergency department by his and his son. He has a history of Lewy body dementia. He recently had a tooth extracted on Tuesday which was done under local anesthesia. Postoperatively, his baseline contusion worsened according to the and son and he had increased difficulty with ambulation much more so than usual, particularly throughout the day today. They noticed an increased labored breathing this evening and felt that he was warm and sweaty, but did not take a temperature. It is noteworthy that he was recently given a prescription for Aldactone for worsening congestive heart failure, but they did not fill the prescription as of yet. PAST MEDICAL HISTORY: 1. Reviewed. See EMR. It is noteworthy that he as a pacemaker and history of congestive heart failure. 2. 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 3. Hypertension. 4. He is a nondiabetic with a remote history of smoking. CURRENT MEDICATIONS: Reviewed. See EMR. ALLERGIES: None to medications. REVIEW OF SYSTEMS: Pertinent positives and negatives as in the HPI. PHYSICAL EXAMINATION: VITAL SIGNS: See EMR. He is febrile at 38.8, blood pressure 139/86, heart rate is 65, O2 sat is 95%. HEENT: He has some scleral injection, but no scleral icterus is noted. Oral mucosa seems somewhat dry. NECK: Reasonably supple. No bruits. No JVD is noted. CHEST: He does have a few scattered rhonchi. No wheezes are noted. Reasonably good air exchange. CARDIAC: Regular rate without murmur. Also on chest exam, pacemaker is noted in the left upper outer chest wall area. ABDOMEN: Soft and nontender. Normal bowel sounds, nondistended. EXTREMITIES: He has good popliteal pulses and I think he has ankle pulses as well. His feet are warm and pink. He has venous stasis changes. NEUROLOGIC: He moves all four extremities to commands. Face is symmetrical. His affect initially appeared flat, but when I tried to engage him, he actually answered questions reasonably appropriately and even showed some degree of a sense of humor. We talked about fishing, etc. and he was reasonably lucid. FURTHER EMERGENCY ROOM COURSE: A chest x-ray was obtained and it was a portable upright. It does appear possibly to be some right upper lobe infiltrative changes, but I am real confident of that. The quality of the film is borderline in terms of making a diagnosis of pneumonia in my opinion. His CMP reveals normal electrolytes. His BUN is 22 with a creatinine of 1.5. His glucose is 141, but this is nonfasting. His total bilirubin is 1.3 with an alkaline phosphatase of 127. His BNP was 1842 on 04/07 and it is down to 754 today. Urine was negative for any sign of UTI. IMPRESSION: It is obvious that the can no longer provide his cares adequately and she has reached the limits of her ability to assist as this point in time. He does have a fever and with his increased labored breathing and physical findings, clinically it appears that he may well have pneumonia. We will start him on Rocephin for starters. I discussed the patient's admission with Dr. Will who agrees that he should be admitted. The patient's family understands and agrees with this plan. MARY /[id number]
[2018-04-11] MEDS: Allopurinol 100 MG Tab PO SCH (08:05)
[2018-04-11] MEDS: Furosemide 40 MG Tab PO SCH (08:06)
[2018-04-11] MEDS: Spironolactone 25 MG Tab PO SCH (08:06)
[2018-04-11] MEDS: Saccharomyces Boulardii (Probiotic) 250 MG Cap PO SCH ×2 (08:06→21:16)
[2018-04-11] MEDS: Famotidine 20 MG Tab PO SCH ×2 (08:07→21:16)
[2018-04-11] MEDS ORDERED: Potassium Chloride 20 MEQ Tab.ER PO ONE (09:00)
[2018-04-11] MEDS ORDERED: Magnesium Sulfate/Water 2 GM in Premix Bag 1 BAG IV ONE (09:00)
[2018-04-11] MEDS: Metoprolol Succinate 50 MG Tab.ER PO SCH (09:48)
[2018-04-11] MEDS ORDERED: Iopamidol 755 Mg/ML 100 ML Bottle IVPUSH ONE (16:43)
[2018-04-11] MEDS ORDERED: Sodium Chloride 0.9% 10 ML Syringe FLUSH ONE (16:43)
[2018-04-11] MEDS ORDERED: Sodium Chloride 0.9% 100 ML IV SCH (16:45)
[2018-04-11] MEDS: RIVASTIGMINE 9.5 MG TOP SCH (17:08)
[2018-04-11] MEDS ORDERED: Warfarin 5 MG Tab PO SCH (18:00)
[2018-04-11] MEDS ORDERED: Levofloxacin/Dextrose 5%-Water 750 MG in Premix Bag 1 BAG IV SCH (18:00)
[2018-04-11] MEDS ORDERED: Warfarin 10 MG Tab PO SCH (18:00)
--- NOTE | 2018-04-11 21:15 | PCM.PN ---
- General Info Date of Service: 04/11/18 Admission Dx/Problem (Free Text): Admission Diagnosis/Problem Admission Diagnosis/Problem Pneumonia Subjective Update: In to see Randell. Overall he is doing well and has no complaints. He is sitting in a chair visiting with family. He is still very confused d/t his h/o Lewy Body Dementia, so I talked with his (DAGO) and daughter. I explained to the family that his repeat CXR was clear but that one of his blood cultures did come back with Gram - rods. This may be contamination, but we will repeat blood cultures to check. I also explained that I had stopped the antibiotics yesterday as there was no clear cause of infection, his temperature had gone down, and his labs had improved overall. The family understood and agreed and also requested that I talk to the pt's PCP, Dr. Maravilla. I updated Dr. Maravilla on the pt's condition and how there was no clear source of infection. He recommended that we try a CT of the abdomen since there is a history of bile duct cancer and that the positive blood culture sounded suspicious. He also requested that I get in touch with the pt's Neurologist in regards to the new onset of Parkinsonian movements and hallucinations that are most likely due to the Seroquel (the medications were stopped by the ER doctor a few days ago, but the wanted to restart the Namenda today). I got in contact with the neurologist, Dr. Cohen in [place], and he agreed to restarting the Namenda and stopping the Seroquel. He also recommended that the pt be placed on Nuplazid for the hallucinations. He will write a prescription so they may follow up with him outpt. I then had a meeting with the and social work msw Michelle regarding the new medication recommended by the neurologist and the recommendation by Dr. Maravilla to get an abdominal CT. I explained that we may not find anything on the CT as there are no clear symptoms, but we could do it d/t his history and if it would make her feel better to know. The agreed to the abdominal CT. She then stated "I don't want to start him on any new medications from the neurologist". I explained why he had prescribed the Nuplazid and that if she was not comfortable, she did not have to burr picker the prescription. I also let her know that if she had any more questions she can f/u with his PCP Dr. Maravilla and have an outpt visit with the neurologist as well if she would like. We also discussed his code status, including DNR/DNI vs Comfort Care, which she has decided she would like him to be DNR/DNI. She is also now aware of Comfort Measures and understands it, but is not ready to change his status to it. Michelle and I reassured her that this is not a decision that needs to be made right now, but that we just want her to be aware of her options. She stated she understood. CT results came back and it was found that Shaheen has Proctitis and possible cystitis. He will be started on Levaquin and Flagyl regimen. The and daughter were updated and were relieved to finally have a diagnosis that could possibly explain his fever. He will most likely be D/C'd in 2-3 days, pending his clinical disposition and need for IV medications. (DAGO) WOULD LIKE THE PT'S CODE STATUS TO BE SWITCHED TO DNR /DNI. Functional Status: Reports: Pain Controlled, Tolerating Diet, Ambulating (with assistance), Urinating - Review of Systems General: Reports: No Symptoms. Denies: Fever HEENT: Reports: No Symptoms Pulmonary: Reports: No Symptoms. Denies: Shortness of Breath, Cough Cardiovascular: Reports: No Symptoms. Denies: Chest Pain Gastrointestinal: Reports: No Symptoms. Denies: Abdominal Pain, Constipation, Diarrhea, Nausea, Vomiting Genitourinary: Reports: No Symptoms. Denies: Dysuria, Frequency, Burning, Pain , Urgency Musculoskeletal: Reports: No Symptoms Skin: Reports: No Symptoms Neurological: Reports: Confusion (h/o Lewy Body Dementia) Psychiatric: Reports: Confusion (h/o Lewy Body Dementia) - Patient Data Vitals - Most Recent: Last Vital Signs Temp 98.2 F 04/11/18 15:33 Pulse 60 04/11/18 15:33 Resp 28 H 04/11/18 15:33 BP 114/65 04/11/18 15:33 Pulse Ox 100 04/11/18 15:33 Weight - Most Recent: 184 lb 5 oz I&O - Last 24 Hours: Intake & Output 04/11/18 04/11/18 04/11/18 06:59 14:59 22:59 Intake Total 933 021 5760 Output Total 625 1150 Balance -425 540 0 Lab Results Last 24 Hours: Laboratory Results - last 24 hr 04/11/18 04/11/18 04/11/18 Range/Units 04:54 04:54 04:54 WBC 7.15 (4.23-9.07) K/mm3 RBC 4.49 L (4.63-6.08) M/mm3 Hgb 14.2 (13.7-17.5) gm/L Hct 41.4 (40.1-51.0) % MCV 92.2 (79.0-92.2) fl MCH 31.6 (25.7-32.2) pg MCHC 34.3 (32.2-35.5) g/dl RDW Std Deviation 45.1 H (35.1-43.9) fL Plt Count 148 L (163-337) K/mm3 MPV 9.0 L (9.4-12.3) fl Neut % (Auto) 66.7 (34.0-67.9) % Lymph % (Auto) 18.6 L (21.8-53.1) % Sac % (Auto) 11.3 (5.3-12.2) % Eos % (Auto) 3.2 (0.8-7.0) Baso % (Auto) 0.1 (0.1-1.2) % Neut # (Auto) 4.76 (1.78-5.38) K/mm3 Lymph # (Auto) 1.33 (1.32-3.57) K/mm3 Sac # (Auto) 0.81 (0.30-0.82) K/mm3 Eos # (Auto) 0.23 (0.04-0.54) K/mm3 Baso # (Auto) 0.01 (0.01-0.08) K/mm3 PT 22.9 H (9.5-12.1) SECONDS INR 2.13 Sodium 139 (136-145) mEq/L Potassium 3.3 L (3.5-5.1) mEq/L Chloride 101 (98-107) mEq/L Carbon Dioxide 30 (21-32) mEq/L Anion Gap 11.3 (5-15) BUN 19 H (7-18) mg/dL Creatinine 1.3 (0.7-1.3) mg/dL Est Cr Clr Drug Dosing 43.08 mL/min Estimated GFR (MDRD) 53 (>60) mL/min BUN/Creatinine Ratio 14.6 (14-18) Glucose 102 (83-115) mg/dL Calcium 8.5 (8.5-10.1) mg/dL Magnesium 1.7 L (1.8-2.4) mg/dl C-Reactive Protein 7.3 H* (<1.0) mg/dL Yunior Results Last 24 Hours: Microbiology 04/10/18 00:33 Aerobic Blood Culture - Preliminary Blood - Venous - Lab Draw NO GROWTH AFTER 1 DAY Anaerobic Blood Culture - Preliminary Gram Negative Rods 04/10/18 00:20 Aerobic Blood Culture - Preliminary Blood - Venous NO GROWTH AFTER 1 DAY Anaerobic Blood Culture - Preliminary NO GROWTH AFTER 1 DAY Med Orders - Current: Current Medications Acetaminophen (Tylenol) 650 mg PO Q4H PRN PRN Reason: Pain (Mild 1-3)/fever Albuterol/Ipratropium (Duoneb 3.0-0.5 Mg/3 Ml) 3 ml NEB Q4H PRN PRN Reason: Shortness Of Breath/wheezing Allopurinol (Zyloprim) 50 mg PO DAILY [facility] Last Admin: 04/11/18 08:05 Dose: 50 mg Bisacodyl (Dulcolax) 5 mg PO DAILY PRN PRN Reason: Constipation Docusate Sodium (Colace) 100 mg PO BID PRN PRN Reason: Constipation Famotidine (Pepcid) 20 mg PO BID [facility] Last Admin: 04/11/18 08:07 Dose: 20 mg Furosemide (Lasix) 60 mg PO DAILY [facility] Last Admin: 04/11/18 08:06 Dose: 60 mg Hydralazine HCl (Apresoline) 10 mg IVPUSH Q6H PRN PRN Reason: Hypertension Levofloxacin/Dextrose 750 mg/ (Premix) 150 mls @ 100 mls/hr IV Q48H [facility] Last Admin: 04/11/18 18:39 Dose: 100 mls/hr Metronidazole 500 mg/ Premix 100 mls @ 100 mls/hr IV Q12H [facility] Levothyroxine Sodium (Synthroid) 50 mcg PO ACBREAKFAST [facility] Last Admin: 04/11/18 05:12 Dose: 50 mcg Magnesium Sulfate (Pharmacy To Dose - Magnesium Replacement) 1 dose .XX ASDIRECTED [facility] Memantine (Namenda) 5 mg PO BID [facility] Metoprolol Succinate (Toprol Xl) 100 mg PO DAILY [facility] Last Admin: 04/11/18 09:48 Dose: Not Given Metoprolol Tartrate (Lopressor) 5 mg IVPUSH Q4H PRN PRN Reason: Tachycardia Ondansetron HCl (Zofran Odt) 4 mg PO Q6H PRN PRN Reason: nausea, able to take PO Ondansetron HCl (Zofran) 4 mg IV Q6H PRN PRN Reason: Nausea/Vomiting Rivastigmine 9.5mg (PatchOwn Med) 0 each TOP DAILY@1600 [facility] Last Admin: 04/11/18 17:08 Dose: 1 each Polyethylene Glycol (Miralax) 17 gm PO DAILY PRN PRN Reason: Constipation Last Admin: 04/11/18 11:12 Dose: 17 gm Potassium Chloride (Pharmacy To Dose - Potassium Replacement) 1 dose .XX ASDIRECTED [facility] Saccharomyces Boulardii (Florastor) 250 mg PO BID [facility] Last Admin: 04/11/18 08:06 Dose: 250 mg Senna/Docusate Sodium (Senna Plus) 1 tab PO BID PRN PRN Reason: Constipation Sodium Chloride (Saline Flush) 10 ml FLUSH ASDIRECTED PRN PRN Reason: Keep Vein Open Spironolactone (Aldactone) 25 mg PO DAILY [facility] Last Admin: 04/11/18 08:06 Dose: 25 mg Warfarin Sodium (Pharmacy To Dose - Warfarin) 0 dose .XX ASDIRECTED PRN PRN Reason: RX TO DOSE WARFARIN Warfarin Sodium (Coumadin) 10 mg PO DAILY@1800 [facility] Stop: 04/11/18 21:00 Last Admin: 04/11/18 17:08 Dose: 10 mg Discontinued Medications Acetaminophen (Tylenol) 650 mg PO NOW ONE Stop: 04/10/18 01:03 Last Admin: 04/10/18 01:09 Dose: 650 mg Ceftriaxone Sodium 1 gm/ (Sodium Chloride) 100 mls @ 200 mls/hr IV ONETIME ONE Stop: 08/27/18 02:07 Last Admin: 04/10/18 02:02 Dose: 200 mls/hr Ceftriaxone Sodium 1 gm/ (Sodium Chloride) 100 mls @ 200 mls/hr IV Q24H [facility] Magnesium Sulfate 2 gm/ Premix 50 mls @ 25 mls/hr IV ONETIME ONE Stop: 04/11/18 10:59 Last Admin: 04/11/18 08:08 Dose: 25 mls/hr Sodium Chloride (Normal Saline) 100 mls @ 60 mls/hr IV ASDIRECTED [facility] Stop: 04/11/18 18:24 Last Admin: 04/11/18 16:53 Dose: 60 mls/hr Iopamidol (Isovue-370 (76%)) 100 ml IVPUSH ONETIME ONE Stop: 04/11/18 16:44 Last Admin: 04/11/18 16:53 Dose: 80 ml Rivastigmine [ (Rivastigmine] 1 Each) 0 each TOP DAILY [facility] Last Admin: 04/10/18 19:01 Dose: Not Given Potassium Chloride (Klor-Con M20) 40 meq PO ONETIME ONE Stop: 04/11/18 09:01 Last Admin: 04/11/18 08:06 Dose: 40 meq Sodium Chloride (Saline Flush) 10 ml FLUSH ONETIME ONE Stop: 04/11/18 16:44 Last Admin: 04/11/18 16:53 Dose: 10 ml Warfarin Sodium (Coumadin) 10 mg PO SuMoWeFrSa [facility] Warfarin Sodium (Coumadin) 5 mg PO TuTh@1800 [facility] Warfarin Sodium (Coumadin Sliding Scale) 0 each PO QPM [facility] Stop: 04/10/18 21:00 Last Admin: 04/10/18 19:44 Dose: Not Given - Exam Quality Assessment: DVT Prophylaxis. No: Supplemental Oxygen (100% on RA) General: Alert, Cooperative, No Acute Distress. No: Oriented (confused- h/o Lewy Body Dementia) HEENT: Pupils Equal, Pupils Reactive, EOMI, Mucous Membr. Moist/[place] Neck: Supple Lungs: Clear to Auscultation, Normal Respiratory Effort Cardiovascular: Regular Rate, Regular Rhythm GI/Abdominal Exam: Normal Bowel Sounds, Soft, Non-Tender, No Organomegaly, No Distention, No Abnormal Bruit, No Mass, Pelvis Stable (Male) Exam: Deferred Back Exam: Normal Inspection, Full Range of Motion Extremities: Normal Inspection, Normal Range of Motion, Non-Tender, No Pedal Edema, Normal Capillary Refill Peripheral Pulses: 2+: Posterior Tibial (L), Posterior Tibial (R), Dorsalis Pedis (L), Dorsalis Pedis (R) Skin: Warm, Dry, Intact Neurological: No New Focal Deficit Psy/Mental Status: Alert, Normal Affect, Normal Mood, Other (Confused- h/o Lewy Body Dementia) - Problem List & Annotations (1) Fever, unknown origin SNOMED Code(s): 3691001 Code(s): R50.9 - FEVER, UNSPECIFIED Status: Acute Priority: High Current Visit: Yes (2) Hypoxia SNOMED Code(s): 709332023 Code(s): R09.02 - HYPOXEMIA Status: Resolved Priority: High Current Visit: No (3) Severe dementia SNOMED Code(s): 68522227 Code(s): F03.90 - UNSPECIFIED DEMENTIA WITHOUT BEHAVIORAL DISTURBANCE Status: Chronic Priority: Low Current Visit: Yes (4) Proctitis SNOMED Code(s): 8562333 Code(s): K62.89 - OTHER SPECIFIED DISEASES OF ANUS AND RECTUM Status: Acute Priority: High Current Visit: Yes (5) Bladder wall thickening SNOMED Code(s): 901902941 Code(s): N32.89 - OTHER SPECIFIED DISORDERS OF BLADDER Status: Acute Priority: High Current Visit: Yes - Problem List Review Problem List Initiated/Reviewed/Updated: Yes - My Orders Last 24 Hours: My Active Orders 04/10/18 21:00 Famotidine [Pepcid] 20 mg PO BID 04/10/18 22:17 CULTURE BLOOD [BC] Stat CULTURE BLOOD [BC] Stat 04/11/18 05:11 Blood Culture x2 Reflex Set [OM.PC] AM 04/11/18 09:00 Saccharomyces Boulardii [Florastor] 250 mg PO BID 04/11/18 16:12 Abdomen Pelvis w Cont [CT] Routine 04/11/18 18:00 Levofloxacin/Dextrose 5%-Water [Levaquin in D5W 750 MG/150 ML] 750 mg Premix Bag 1 bag IV Q48H 04/11/18 20:00 metroNIDAZOLE/Normal Saline [Flagyl 500 MG in NS 100 ML] 500 mg Premix Bag 1 bag IV Q12H 04/11/18 21:00 Memantine [Namenda] 5 mg PO BID - Plan Plan:: I/P: Acute: Proctitis and Possible Cystitis * Fever resolved; 101.8 rectally in ED --> 98.2 now * WBC 9.3--> 7.15, ESR 33, CRP 2.2--> 7.3 * U/A negative for UTI * Sepsis Protocol: * Lactic Acid normal at 1.6 * Blood cultures--> 1 growing Gram - rods after 12H * Repeat Blood cultures --> no growth after 1 day * Rocephin started in ED--> D/C; there seems to be no clear source of infection * Tylenol given in ED--> Continue PRN * CT Abdomen --> 1. No definitive sign of bile duct cancer 2. Proctitis 3. Bladder thickening that could be cystitis, wall hypertrophy, or other. * Levaquin 750 IV Q Daily and Flagyl IV 500 BID started tonight Diarrhea, improved * Most likely 2/2 above * intermittent x2 weeks per ; pt does not complain of any abdominal pain or tenderness * No blood in stool * Florastor and above antibiotics Confusion * Acute on Chronic (h/o Lewy Body Dementia); increased per * Risk factor: recent change in medications * Was recently started on Seroquel; per , 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 and hallucinations * Was in ED 04/07 for increased confusion and was taken off both Seroquel and Namenda by ED provider * would like to restart Namenda here as she states he seems worse without it * Talked with his neurologist, Dr. Cohen, who agrees with the plan of starting Namenda and D/Cing Seroquel. Would like to start him on Nuplazid for Hallucinations and will write him a prescription. does not want at this time. * Recommend f/u with PCP and Neurologist Dr. Cohen outpt Resolved: Dyspnea * Was dyspneic on scene according to EMS, 93% RA * No cough, CXR clear, Repeat CXR clear * Now 100% RA Chronic: CHF * BNP 754 * Continue Lasix and Spironolactone Pacemaker Lewy Body Dementia Gout Impaired vision Hypothyroid Anticoagulation therapy Bile Duct CA s/p Whipple Plan: Transferred to medical floor He remains stable and continues to improve clinically Other orders as indicated above Routine AM labs Heart Healthy Diet SW/CM for discharge planning --> may need SNF placement; also code status needs to be addressed--> (POA) has chosen DNR/DNI PT/OT DVT Prophylaxis: Warfarin GI Prophylaxis: Pepcid Ambulate with assistance Code Status: DNR/DNI; PCP: Dr. Maravilla is POA
[2018-04-11] MEDS: Memantine 10 MG Tab PO SCH (21:16)
[2018-04-11] MEDS: metroNIDAZOLE/Normal Saline 500 MG in Premix Bag 1 BAG IV SCH (21:16)
[2018-04-12] MEDS: Levothyroxine 50 MCG Tab PO SCH (05:26)
[2018-04-12] MEDS: metroNIDAZOLE/Normal Saline 500 MG in Premix Bag 1 BAG IV SCH ×2 (08:26→20:27)
[2018-04-12] MEDS: Saccharomyces Boulardii (Probiotic) 250 MG Cap PO SCH ×2 (08:29→20:24)
[2018-04-12] MEDS: Furosemide 40 MG Tab PO SCH (08:29)
[2018-04-12] MEDS: Memantine 10 MG Tab PO SCH ×2 (08:29→20:25)
[2018-04-12] MEDS: Spironolactone 25 MG Tab PO SCH (08:30)
[2018-04-12] MEDS: Allopurinol 100 MG Tab PO SCH (08:30)
[2018-04-12] MEDS: Famotidine 20 MG Tab PO SCH ×2 (08:30→20:23)
[2018-04-12] MEDS: Metoprolol Succinate 50 MG Tab.ER PO SCH (08:31)
[2018-04-12] MEDS: RIVASTIGMINE 9.5 MG TOP SCH (15:02)
--- NOTE | 2018-04-12 15:05 | CT ---
CT abdomen and pelvis Technique: Multiple axial sections were obtained from above the dome of the diaphragm inferiorly through the pubic symphysis. Intravenous contrast was utilized. Small amount of oral contrast was given. Delayed images were also obtained through the abdomen and pelvis. Comparison: Prior CT abdomen of 12/14/11 is available. Findings: Visualized lung bases show nothing acute. Liver shows no focal parenchymal abnormality. Air is identified within the intrahepatic and extrahepatic biliary tree. Spleen appears within normal limits. Gallbladder not seen compatible with previous cholecystectomy. Pancreas is within normal limits. Common bile duct is slightly prominent in size most likely residual from prior surgery. Adrenal gland on the left side is slightly prominent which appears as a stable finding from previous exam and is therefore incidental. Aorta shows atherosclerotic change without aneurysmal dilatation. No retroperitoneal adenopathy is seen. Cortical scar is noted within the left kidney which is stable. Small cortical lesion is seen within the left kidney compatible with small cyst which is stable. Parapelvic cyst is noted within the left kidney which is slightly increased in size from previous exam. Small cyst is noted within the upper pole of the right kidney. No mesenteric abnormalities are seen. No pelvic mass or adenopathy is seen. Equivocal prominence of the rectal wall is seen and difficult to exclude a mild proctitis. Please correlate with the patient's symptoms. Bladder wall is slightly prominent most likely due to under distention. Compression deformity noted of L3 which appears to be old. Lesser compression deformity of L2 which is also old. Impression: 1. Questionable thickening of the rectal wall. Please correlate if patient has any symptoms to suggest proctitis. 2. Other incidental findings as noted above. Nothing acute is otherwise seen. Diagnostic code #3 Agree with preliminary report issued by [facility] (report finalized on 04/11/18, 6:30 PM Central Time)
--- NOTE | 2018-04-12 15:26 | PCM.PN ---
- General Info Date of Service: 04/12/18 Admission Dx/Problem (Free Text): Admission Diagnosis/Problem Admission Diagnosis/Problem Pneumonia Subjective Update: In to see Randell. Apparently he has been agitated today with nursing, was throwing pillows and yelling at his . She states he hasn't been this agitated in quite some time. His took him outside and that seemed to help calm him down. I also told them that we may want to consider giving Ativan. The was reluctant at first, but has since decided that she is OK with a low dose. Other than that, Randell seems to be doing well clinically. He has no complaints at this time. Blood culture has come back with Klebsiella, which is susceptible to Levaquin. Will continue his IV Abx regimen for a few days and will most likely D/C Tuesday pending labs and clinical disposition. Functional Status: Reports: Pain Controlled, Tolerating Diet, Ambulating, Urinating - Review of Systems General: Reports: No Symptoms. Denies: Fever, Chills HEENT: Reports: No Symptoms Pulmonary: Reports: No Symptoms. Denies: Shortness of Breath, Cough Cardiovascular: Reports: No Symptoms. Denies: Chest Pain, Dyspnea on Exertion Gastrointestinal: Reports: No Symptoms. Denies: Abdominal Pain, Diarrhea, Nausea, Vomiting Genitourinary: Reports: No Symptoms. Denies: Dysuria, Frequency, Burning, Pain Musculoskeletal: Reports: No Symptoms Skin: Reports: No Symptoms Neurological: Reports: Confusion (h/o Lewy Body Dementia) Psychiatric: Reports: Confusion (h/o Lewy Body Dementia), Mood Lability, Agitation - Patient Data Vitals - Most Recent: Last Vital Signs Temp 98.8 F 04/12/18 15:05 Pulse 63 04/12/18 15:05 Resp 16 04/12/18 15:05 BP 142/69 H 04/12/18 15:05 Pulse Ox 96 04/12/18 15:05 Weight - Most Recent: 182 lb 12.8 oz I&O - Last 24 Hours: Intake & Output 04/12/18 04/12/18 04/12/18 06:59 14:59 22:59 Intake Total 500 520 Output Total 1000 Balance -500 520 Lab Results Last 24 Hours: Laboratory Results - last 24 hr 08/29/18 08/29/18 08/29/18 Range/Units 06:36 06:36 06:36 WBC 7.16 (4.23-9.07) K/mm3 RBC 4.38 L (4.63-6.08) M/mm3 Hgb 13.8 (13.7-17.5) gm/L Hct 40.4 (40.1-51.0) % MCV 92.2 (79.0-92.2) fl MCH 31.5 (25.7-32.2) pg MCHC 34.2 (32.2-35.5) g/dl RDW Std Deviation 44.5 H (35.1-43.9) fL Plt Count 148 L (163-337) K/mm3 MPV 9.3 L (9.4-12.3) fl Neut % (Auto) 73.7 H (34.0-67.9) % Lymph % (Auto) 15.5 L (21.8-53.1) % Kane % (Auto) 9.2 (5.3-12.2) % Eos % (Auto) 1.4 (0.8-7.0) Baso % (Auto) 0.1 (0.1-1.2) % Neut # (Auto) 5.27 (1.78-5.38) K/mm3 Lymph # (Auto) 1.11 L (1.32-3.57) K/mm3 Kane # (Auto) 0.66 (0.30-0.82) K/mm3 Eos # (Auto) 0.10 (0.04-0.54) K/mm3 Baso # (Auto) 0.01 (0.01-0.08) K/mm3 PT 19.4 H (9.5-12.1) SECONDS INR 1.80 Sodium 139 (136-145) mEq/L Potassium 3.9 (3.5-5.1) mEq/L Chloride 104 (98-107) mEq/L Carbon Dioxide 28 (21-32) mEq/L Anion Gap 10.9 (5-15) BUN 16 (7-18) mg/dL Creatinine 1.3 (0.7-1.3) mg/dL Est Cr Clr Drug Dosing 43.08 mL/min Estimated GFR (MDRD) 53 (>60) mL/min BUN/Creatinine Ratio 12.3 L (14-18) Glucose 104 (83-115) mg/dL Calcium 8.8 (8.5-10.1) mg/dL Magnesium 2.1 (1.8-2.4) mg/dl C-Reactive Protein 5.5 H* (<1.0) mg/dL Yunior Results Last 24 Hours: Microbiology 04/10/18 00:33 Aerobic Blood Culture - Preliminary Blood - Venous - Lab Draw NO GROWTH AFTER 2 DAYS Anaerobic Blood Culture - Preliminary Klebsiella Pneumoniae 04/11/18 05:04 Aerobic Blood Culture - Preliminary Blood - Venous - Lab Draw NO GROWTH AFTER 1 DAY Anaerobic Blood Culture - Preliminary NO GROWTH AFTER 1 DAY 04/11/18 04:54 Aerobic Blood Culture - Preliminary Blood - Venous NO GROWTH AFTER 1 DAY Anaerobic Blood Culture - Preliminary NO GROWTH AFTER 1 DAY 04/10/18 00:20 Aerobic Blood Culture - Preliminary Blood - Venous NO GROWTH AFTER 2 DAYS Anaerobic Blood Culture - Preliminary NO GROWTH AFTER 2 DAYS Med Orders - Current: Current Medications Acetaminophen (Tylenol) 650 mg PO Q4H PRN PRN Reason: Pain (Mild 1-3)/fever Albuterol/Ipratropium (Duoneb 3.0-0.5 Mg/3 Ml) 3 ml NEB Q4H PRN PRN Reason: Shortness Of Breath/wheezing Allopurinol (Zyloprim) 50 mg PO DAILY [facility] Last Admin: 04/12/18 08:30 Dose: 50 mg Bisacodyl (Dulcolax) 5 mg PO DAILY PRN PRN Reason: Constipation Docusate Sodium (Colace) 100 mg PO BID PRN PRN Reason: Constipation Famotidine (Pepcid) 20 mg PO BID [facility] Last Admin: 04/12/18 08:30 Dose: 20 mg Furosemide (Lasix) 60 mg PO DAILY [facility] Last Admin: 04/12/18 08:29 Dose: 60 mg Hydralazine HCl (Apresoline) 10 mg IVPUSH Q6H PRN PRN Reason: Hypertension Levofloxacin/Dextrose 750 mg/ (Premix) 150 mls @ 100 mls/hr IV Q48H [facility] Last Admin: 04/11/18 18:39 Dose: 100 mls/hr Metronidazole 500 mg/ Premix 100 mls @ 100 mls/hr IV Q12H [facility] Last Admin: 04/12/18 08:26 Dose: 100 mls/hr Levothyroxine Sodium (Synthroid) 50 mcg PO ACBREAKFAST [facility] Last Admin: 04/12/18 05:26 Dose: 50 mcg Magnesium Sulfate (Pharmacy To Dose - Magnesium Replacement) 1 dose .XX ASDIRECTED [facility] Memantine (Namenda) 5 mg PO BID [facility] Last Admin: 04/12/18 08:29 Dose: 5 mg Metoprolol Succinate (Toprol Xl) 100 mg PO DAILY [facility] Last Admin: 04/12/18 08:31 Dose: Not Given Metoprolol Tartrate (Lopressor) 5 mg IVPUSH Q4H PRN PRN Reason: Tachycardia Ondansetron HCl (Zofran Odt) 4 mg PO Q6H PRN PRN Reason: nausea, able to take PO Ondansetron HCl (Zofran) 4 mg IV Q6H PRN PRN Reason: Nausea/Vomiting Rivastigmine 9.5mg (PatchOwn Med) 0 each TOP DAILY@1600 [facility] Last Admin: 04/12/18 15:02 Dose: 1 each Polyethylene Glycol (Miralax) 17 gm PO DAILY PRN PRN Reason: Constipation Last Admin: 04/11/18 11:12 Dose: 17 gm Potassium Chloride (Pharmacy To Dose - Potassium Replacement) 1 dose .XX ASDIRECTED [facility] Saccharomyces Boulardii (Florastor) 250 mg PO BID [facility] Last Admin: 04/12/18 08:29 Dose: 250 mg Senna/Docusate Sodium (Senna Plus) 1 tab PO BID PRN PRN Reason: Constipation Sodium Chloride (Saline Flush) 10 ml FLUSH ASDIRECTED PRN PRN Reason: Keep Vein Open Spironolactone (Aldactone) 25 mg PO DAILY [facility] Last Admin: 04/12/18 08:30 Dose: 25 mg Warfarin Sodium (Pharmacy To Dose - Warfarin) 0 dose .XX ASDIRECTED PRN PRN Reason: RX TO DOSE WARFARIN Warfarin Sodium (Coumadin) 10 mg PO DAILY@1800 [facility] Stop: 04/12/18 21:00 Discontinued Medications Acetaminophen (Tylenol) 650 mg PO NOW ONE Stop: 04/10/18 01:03 Last Admin: 04/10/18 01:09 Dose: 650 mg Ceftriaxone Sodium 1 gm/ (Sodium Chloride) 100 mls @ 200 mls/hr IV ONETIME ONE Stop: 04/10/18 02:07 Last Admin: 04/10/18 02:02 Dose: 200 mls/hr Ceftriaxone Sodium 1 gm/ (Sodium Chloride) 100 mls @ 200 mls/hr IV Q24H [facility] Magnesium Sulfate 2 gm/ Premix 50 mls @ 25 mls/hr IV ONETIME ONE Stop: 04/11/18 10:59 Last Admin: 04/11/18 08:08 Dose: 25 mls/hr Sodium Chloride (Normal Saline) 100 mls @ 60 mls/hr IV ASDIRECTED [facility] Stop: 04/11/18 18:24 Last Admin: 04/11/18 16:53 Dose: 60 mls/hr Iopamidol (Isovue-370 (76%)) 100 ml IVPUSH ONETIME ONE Stop: 04/11/18 16:44 Last Admin: 04/11/18 16:53 Dose: 80 ml Rivastigmine [ (Rivastigmine] 1 Each) 0 each TOP DAILY [facility] Last Admin: 04/10/18 19:01 Dose: Not Given Potassium Chloride (Klor-Con M20) 40 meq PO ONETIME ONE Stop: 04/11/18 09:01 Last Admin: 04/11/18 08:06 Dose: 40 meq Sodium Chloride (Saline Flush) 10 ml FLUSH ONETIME ONE Stop: 04/11/18 16:44 Last Admin: 04/11/18 16:53 Dose: 10 ml Warfarin Sodium (Coumadin) 10 mg PO SuMoWeFrSa [facility] Warfarin Sodium (Coumadin) 5 mg PO TuTh@1800 [facility] Warfarin Sodium (Coumadin Sliding Scale) 0 each PO QPM [facility] Stop: 04/10/18 21:00 Last Admin: 04/10/18 19:44 Dose: Not Given Warfarin Sodium (Coumadin) 10 mg PO DAILY@1800 [facility] Stop: 04/11/18 21:00 Last Admin: 04/11/18 17:08 Dose: 10 mg - Exam Quality Assessment: DVT Prophylaxis. No: Supplemental Oxygen General: Alert, Cooperative, No Acute Distress. No: Oriented (h/o Lewy Body Dementia) HEENT: Pupils Equal, Pupils Reactive, EOMI, Mucous Membr. Moist/[place] Neck: Supple Lungs: Clear to Auscultation, Normal Respiratory Effort Cardiovascular: Regular Rate, Regular Rhythm GI/Abdominal Exam: Normal Bowel Sounds, Soft, Non-Tender, No Organomegaly, No Distention, No Abnormal Bruit, No Mass, Pelvis Stable (Male) Exam: Deferred Back Exam: Normal Inspection, Full Range of Motion Extremities: Normal Inspection, Normal Range of Motion, Non-Tender, No Pedal Edema, Normal Capillary Refill Peripheral Pulses: 2+: Posterior Tibial (L), Posterior Tibial (R), Dorsalis Pedis (L), Dorsalis Pedis (R) Skin: Warm, Dry, Intact Neurological: No New Focal Deficit Psy/Mental Status: Alert, Normal Affect, Labile Mood, Agitated (was agitated earlier today, yelled at and threw pillows at nursing) - Problem List & Annotations (1) Fever, unknown origin SNOMED Code(s): 6700531 Code(s): R50.9 - FEVER, UNSPECIFIED Status: Acute Priority: High Current Visit: Yes (2) Hypoxia SNOMED Code(s): 759106004 Code(s): R09.02 - HYPOXEMIA Status: Resolved Priority: High Current Visit: No (3) Severe dementia SNOMED Code(s): 93951150 Code(s): F03.90 - UNSPECIFIED DEMENTIA WITHOUT BEHAVIORAL DISTURBANCE Status: Chronic Priority: Low Current Visit: Yes (4) Proctitis SNOMED Code(s): 6070508 Code(s): K62.89 - OTHER SPECIFIED DISEASES OF ANUS AND RECTUM Status: Acute Priority: High Current Visit: Yes (5) Bladder wall thickening SNOMED Code(s): 471660911 Code(s): N32.89 - OTHER SPECIFIED DISORDERS OF BLADDER Status: Acute Priority: High Current Visit: Yes - Problem List Review Problem List Initiated/Reviewed/Updated: Yes - My Orders Last 24 Hours: My Active Orders 04/11/18 18:00 Levofloxacin/Dextrose 5%-Water [Levaquin in D5W 750 MG/150 ML] 750 mg Premix Bag 1 bag IV Q48H 04/11/18 20:00 metroNIDAZOLE/Normal Saline [Flagyl 500 MG in NS 100 ML] 500 mg Premix Bag 1 bag IV Q12H 04/11/18 21:00 Memantine [Namenda] 5 mg PO BID - Plan Plan:: I/P: Acute: Proctitis and Possible Cystitis * Fever resolved; 101.8 rectally in ED --> 98.2 now * WBC 9.3--> 7.15, ESR 33, CRP 2.2--> 7.3--> 5.5 * U/A negative for UTI * Sepsis Protocol: * Lactic Acid normal at 1.6 * Blood cultures--> Klebsiella pneumoniae in 1 sample; susceptible to Levaquin , continue current Abx regimen * Repeat Blood cultures --> no growth after 1 day * Rocephin started in ED--> D/C; there seems to be no clear source of infection * Tylenol given in ED--> Continue PRN * CT Abdomen --> 1. No definitive sign of bile duct cancer 2. Proctitis 3. Bladder thickening that could be cystitis, wall hypertrophy, or other. * Levaquin 750 IV Q Daily and Flagyl IV 500 BID started tonight Confusion * Acute on Chronic (h/o Lewy Body Dementia); increased per * Risk factor: recent change in medications * Was recently started on Seroquel; per , 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 and hallucinations * Was in ED 04/07 for increased confusion and was taken off both Seroquel and Namenda by ED provider * would like to restart Namenda here as she states he seems worse without it * Talked with his neurologist, Dr. Cohen, who agrees with the plan of starting Namenda and D/Cing Seroquel. Would like to start him on Nuplazid for Hallucinations and will write him a prescription. does not want at this time. * Recommend f/u with PCP and Neurologist Dr. Cohen outpt Resolved: Dyspnea * Was dyspneic on scene according to EMS, 93% RA * No cough, CXR clear, Repeat CXR clear * Now 100% RA Diarrhea * Most likely 2/2 above * intermittent x2 weeks per ; pt does not complain of any abdominal pain or tenderness * No blood in stool * Florastor and above antibiotics Chronic: CHF * BNP 754 * Continue Lasix and Spironolactone Pacemaker Lewy Body Dementia Gout Impaired vision Hypothyroid Anticoagulation therapy Bile Duct CA s/p Whipple Plan: Transferred to medical floor He remains stable and continues to improve clinically Other orders as indicated above Routine AM labs Heart Healthy Diet SW/CM for discharge planning --> may need SNF placement; also code status needs to be addressed--> (POA) has chosen DNR/DNI PT/OT DVT Prophylaxis: Warfarin GI Prophylaxis: Pepcid Ambulate with assistance Code Status: DNR/DNI; PCP: Dr. Maravilla is POA D/C Plan: * Will continue his IV Abx regimen for a few days and will most likely D/C Tuesday pending labs and clinical disposition.
[2018-04-12] MEDS ORDERED: LORazepam 0.5 MG Tab PO PRN (16:21)
[2018-04-12] MEDS ORDERED: Warfarin 10 MG Tab PO SCH (18:00)
[2018-04-12] MEDS ORDERED: LORazepam 2 MG/ML SDV IVPUSH PRN (23:44)
[2018-04-12] MEDS ORDERED: LORazepam 2 MG/ML SDV ONE (23:46)
[2018-04-13] MEDS: Levothyroxine 50 MCG Tab PO SCH (06:21)
[2018-04-13] MEDS: Saccharomyces Boulardii (Probiotic) 250 MG Cap PO SCH ×2 (08:33→20:58)
[2018-04-13] MEDS: Furosemide 40 MG Tab PO SCH (08:34)
[2018-04-13] MEDS: Allopurinol 100 MG Tab PO SCH (08:34)
[2018-04-13] MEDS: Famotidine 20 MG Tab PO SCH ×2 (08:34→20:58)
[2018-04-13] MEDS: Spironolactone 25 MG Tab PO SCH (08:34)
[2018-04-13] MEDS: Memantine 10 MG Tab PO SCH ×2 (08:34→20:58)
[2018-04-13] MEDS: metroNIDAZOLE/Normal Saline 500 MG in Premix Bag 1 BAG IV SCH (08:35)
[2018-04-13] MEDS: Metoprolol Succinate 50 MG Tab.ER PO SCH (10:32)
[2018-04-13] MEDS: RIVASTIGMINE 9.5 MG TOP SCH (15:18)
--- NOTE | 2018-04-13 15:49 | PCM.PN ---
- General Info Date of Service: 04/13/18 Admission Dx/Problem (Free Text): Admission Diagnosis/Problem Admission Diagnosis/Problem Pneumonia Subjective Update: Follow Up Functional Status: Reports: Pain Controlled, Tolerating Diet, Ambulating, Urinating. Denies: New Symptoms - Review of Systems General: Denies: Fever, Weakness, Fatigue, Malaise, Chills HEENT: Reports: No Symptoms Pulmonary: Denies: Shortness of Breath Cardiovascular: Denies: Chest Pain, Dyspnea on Exertion, Lightheadedness Gastrointestinal: Denies: Abdominal Pain, Nausea, Vomiting Genitourinary: Reports: No Symptoms Musculoskeletal: Reports: No Symptoms Skin: Reports: No Symptoms Neurological: Reports: Confusion (baseline). Denies: Difficulty Walking, Weakness, Gait Disturbance Psychiatric: Denies: Depression, Anxiety, Agitation, Hallucinations Systems Review Comment:: No overnight or acute issues. He seems to be doing just fine. He has no complaints. - Patient Data Vitals - Most Recent: Last Vital Signs Temp 36.6 C 04/13/18 15:10 Pulse 60 04/13/18 15:10 Resp 18 04/13/18 15:10 BP 115/64 04/13/18 15:10 Pulse Ox 95 04/13/18 15:10 Weight - Most Recent: 83.552 kg I&O - Last 24 Hours: Intake & Output 04/13/18 04/13/18 04/13/18 06:59 14:59 22:59 Intake Total 350 180 100 Output Total 600 Balance -250 180 100 Lab Results Last 24 Hours: Laboratory Results - last 24 hr 04/13/18 04/13/18 04/13/18 Range/Units 06:45 06:45 06:45 WBC 6.48 (4.23-9.07) K/mm3 RBC 4.45 L (4.63-6.08) M/mm3 Hgb 14.0 (13.7-17.5) gm/L Hct 40.8 (40.1-51.0) % MCV 91.7 (79.0-92.2) fl MCH 31.5 (25.7-32.2) pg MCHC 34.3 (32.2-35.5) g/dl RDW Std Deviation 44.1 H (35.1-43.9) fL Plt Count 174 (163-337) K/mm3 MPV 9.0 L (9.4-12.3) fl Neut % (Auto) 69.5 H (34.0-67.9) % Lymph % (Auto) 16.8 L (21.8-53.1) % [place] % (Auto) 10.5 (5.3-12.2) % Eos % (Auto) 2.8 (0.8-7.0) Baso % (Auto) 0.2 (0.1-1.2) % Neut # (Auto) 4.51 (1.78-5.38) K/mm3 Lymph # (Auto) 1.09 L (1.32-3.57) K/mm3 [place] # (Auto) 0.68 (0.30-0.82) K/mm3 Eos # (Auto) 0.18 (0.04-0.54) K/mm3 Baso # (Auto) 0.01 (0.01-0.08) K/mm3 PT 20.7 H (9.5-12.1) SECONDS INR 1.92 Sodium 140 (136-145) mEq/L Potassium 3.7 (3.5-5.1) mEq/L Chloride 103 (98-107) mEq/L Carbon Dioxide 29 (21-32) mEq/L Anion Gap 11.7 (5-15) BUN 18 (7-18) mg/dL Creatinine 1.4 H (0.7-1.3) mg/dL Est Cr Clr Drug Dosing 40.00 mL/min Estimated GFR (MDRD) 49 (>60) mL/min BUN/Creatinine Ratio 12.9 L (14-18) Glucose 107 (83-115) mg/dL Calcium 9.0 (8.5-10.1) mg/dL Magnesium 2.0 (1.8-2.4) mg/dl C-Reactive Protein 4.0 H* (<1.0) mg/dL Yunior Results Last 24 Hours: Microbiology 04/10/18 00:33 Aerobic Blood Culture - Preliminary Blood - Venous - Lab Draw NO GROWTH AFTER 3 DAYS Anaerobic Blood Culture - Final Klebsiella Pneumoniae 04/11/18 05:04 Aerobic Blood Culture - Preliminary Blood - Venous - Lab Draw NO GROWTH AFTER 2 DAYS Anaerobic Blood Culture - Preliminary NO GROWTH AFTER 2 DAYS 04/11/18 04:54 Aerobic Blood Culture - Preliminary Blood - Venous NO GROWTH AFTER 2 DAYS Anaerobic Blood Culture - Preliminary NO GROWTH AFTER 2 DAYS 04/10/18 00:20 Aerobic Blood Culture - Preliminary Blood - Venous NO GROWTH AFTER 3 DAYS Anaerobic Blood Culture - Preliminary NO GROWTH AFTER 3 DAYS Med Orders - Current: Current Medications Acetaminophen (Tylenol) 650 mg PO Q4H PRN PRN Reason: Pain (Mild 1-3)/fever Albuterol/Ipratropium (Duoneb 3.0-0.5 Mg/3 Ml) 3 ml NEB Q4H PRN PRN Reason: Shortness Of Breath/wheezing Allopurinol (Zyloprim) 50 mg PO DAILY [facility] Last Admin: 04/13/18 08:34 Dose: 50 mg Bisacodyl (Dulcolax) 5 mg PO DAILY PRN PRN Reason: Constipation Docusate Sodium (Colace) 100 mg PO BID PRN PRN Reason: Constipation Famotidine (Pepcid) 20 mg PO BID [facility] Last Admin: 04/13/18 08:34 Dose: 20 mg Furosemide (Lasix) 60 mg PO DAILY [facility] Last Admin: 04/13/18 08:34 Dose: 60 mg Hydralazine HCl (Apresoline) 10 mg IVPUSH Q6H PRN PRN Reason: Hypertension Levofloxacin/Dextrose 750 mg/ (Premix) 150 mls @ 100 mls/hr IV Q48H [facility] Last Admin: 04/11/18 18:39 Dose: 100 mls/hr Metronidazole 500 mg/ Premix 100 mls @ 100 mls/hr IV Q12H [facility] Last Admin: 04/13/18 08:35 Dose: 100 mls/hr Levothyroxine Sodium (Synthroid) 50 mcg PO ACBREAKFAST [facility] Last Admin: 04/13/18 06:21 Dose: 50 mcg Lorazepam (Ativan) 0.25 mg PO Q4H PRN PRN Reason: Anxiety Last Admin: 04/13/18 00:33 Dose: 0.25 mg Lorazepam (Ativan) 0.25 mg IVPUSH Q4H PRN PRN Reason: Anxiety Magnesium Sulfate (Pharmacy To Dose - Magnesium Replacement) 1 dose .XX ASDIRECTED [facility] Memantine (Namenda) 5 mg PO BID [facility] Last Admin: 04/13/18 08:34 Dose: 5 mg Metoprolol Succinate (Toprol Xl) 100 mg PO DAILY [facility] Last Admin: 04/13/18 10:32 Dose: Not Given Metoprolol Tartrate (Lopressor) 5 mg IVPUSH Q4H PRN PRN Reason: Tachycardia Ondansetron HCl (Zofran Odt) 4 mg PO Q6H PRN PRN Reason: nausea, able to take PO Ondansetron HCl (Zofran) 4 mg IV Q6H PRN PRN Reason: Nausea/Vomiting Rivastigmine 9.5mg (PatchOwn Med) 0 each TOP DAILY@1600 [facility] Last Admin: 04/13/18 15:18 Dose: 1 each Polyethylene Glycol (Miralax) 17 gm PO DAILY PRN PRN Reason: Constipation Last Admin: 04/11/18 11:12 Dose: 17 gm Potassium Chloride (Pharmacy To Dose - Potassium Replacement) 1 dose .XX ASDIRECTED [facility] Saccharomyces Boulardii (Florastor) 250 mg PO BID [facility] Last Admin: 04/13/18 08:33 Dose: 250 mg Senna/Docusate Sodium (Senna Plus) 1 tab PO BID PRN PRN Reason: Constipation Sodium Chloride (Saline Flush) 10 ml FLUSH ASDIRECTED PRN PRN Reason: Keep Vein Open Spironolactone (Aldactone) 25 mg PO DAILY [facility] Last Admin: 04/13/18 08:34 Dose: 25 mg Warfarin Sodium (Pharmacy To Dose - Warfarin) 0 dose .XX ASDIRECTED PRN PRN Reason: RX TO DOSE WARFARIN Warfarin Sodium (Coumadin) 5 mg PO ONETIME ONE Stop: 04/13/18 18:01 Discontinued Medications Acetaminophen (Tylenol) 650 mg PO NOW ONE Stop: 04/10/18 01:03 Last Admin: 04/10/18 01:09 Dose: 650 mg Ceftriaxone Sodium 1 gm/ (Sodium Chloride) 100 mls @ 200 mls/hr IV ONETIME ONE Stop: 04/10/18 02:07 Last Admin: 04/10/18 02:02 Dose: 200 mls/hr Ceftriaxone Sodium 1 gm/ (Sodium Chloride) 100 mls @ 200 mls/hr IV Q24H [facility] Magnesium Sulfate 2 gm/ Premix 50 mls @ 25 mls/hr IV ONETIME ONE Stop: 04/11/18 10:59 Last Admin: 04/11/18 08:08 Dose: 25 mls/hr Sodium Chloride (Normal Saline) 100 mls @ 60 mls/hr IV ASDIRECTED [facility]ILLY Stop: 04/11/18 18:24 Last Admin: 04/11/18 16:53 Dose: 60 mls/hr Iopamidol (Isovue-370 (76%)) 100 ml IVPUSH ONETIME ONE Stop: 04/11/18 16:44 Last Admin: 04/11/18 16:53 Dose: 80 ml Lorazepam (Ativan) Confirm Administered Dose 2 mg .ROUTE .STK-MED ONE Stop: 04/12/18 23:47 Last Admin: 04/13/18 06:14 Dose: Not Given Rivastigmine [ (Rivastigmine] 1 Each) 0 each TOP DAILY [facility] Last Admin: 04/10/18 19:01 Dose: Not Given Potassium Chloride (Klor-Con M20) 40 meq PO ONETIME ONE Stop: 04/11/18 09:01 Last Admin: 04/11/18 08:06 Dose: 40 meq Sodium Chloride (Saline Flush) 10 ml FLUSH ONETIME ONE Stop: 04/11/18 16:44 Last Admin: 04/11/18 16:53 Dose: 10 ml Warfarin Sodium (Coumadin) 10 mg PO SuMoWeFrSa [facility] Warfarin Sodium (Coumadin) 5 mg PO TuTh@1800 [facility] Warfarin Sodium (Coumadin Sliding Scale) 0 each PO QPM [facility] Stop: 04/10/18 21:00 Last Admin: 04/10/18 19:44 Dose: Not Given Warfarin Sodium (Coumadin) 10 mg PO DAILY@1800 [facility] Stop: 04/11/18 21:00 Last Admin: 04/11/18 17:08 Dose: 10 mg Warfarin Sodium (Coumadin) 10 mg PO DAILY@1800 [facility] Stop: 04/12/18 21:00 Last Admin: 04/12/18 17:46 Dose: 10 mg - Exam General: Alert, Oriented, Cooperative, No Acute Distress HEENT: Pupils Equal, Pupils Reactive, EOMI, Mucous Membr. Moist/[place] Neck: Supple, Trachea Midline, No JVD Lungs: Clear to Auscultation, Normal Respiratory Effort Cardiovascular: Regular Rate, Regular Rhythm, Other (pacemaker ) GI/Abdominal Exam: Normal Bowel Sounds, Soft, Non-Tender, No Organomegaly, No Distention, No Abnormal Bruit (Male) Exam: Deferred Back Exam: Normal Inspection, Decreased Range of Motion Extremities: Normal Inspection, Normal Range of Motion, Non-Tender, No Pedal Edema, Normal Capillary Refill, Other Peripheral Pulses: 2+: Dorsalis Pedis (L), Dorsalis Pedis (R) Skin: Warm, Dry, Intact Neurological: No New Focal Deficit Psy/Mental Status: Alert, Normal Affect, Normal Mood - Problem List Review Problem List Initiated/Reviewed/Updated: Yes - My Orders Last 24 Hours: My Active Orders 04/12/18 23:44 LORazepam [Ativan] 0.25 mg IVPUSH Q4H PRN - Plan Plan:: I/P: Acute: Proctitis and Possible Cystitis, Continues to Improved * Fever resolved; 101.8 rectally in ED --> 98.2 now * WBC 9.3--> 7.15 (Normal), ESR 33, CRP 2.2--> 7.3--> 5.5--> now at 4 * U/A negative for UTI * Sepsis Protocol: * Lactic Acid normal at 1.6 * Blood cultures--> Klebsiella pneumoniae in 1 sample; susceptible to Levaquin , continue current Abx regimen * Repeat Blood cultures --> no growth after 1 day * Rocephin started in ED--> D/C; there seems to be no clear source of infection * Tylenol given in ED--> Continue PRN * CT Abdomen --> 1. No definitive sign of bile duct cancer 2. Proctitis 3. Bladder thickening that could be cystitis, wall hypertrophy, or other. 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 Cohen, who agrees with the plan of starting Namenda and D/Cing Seroquel. Would like to start him on Nuplazid for Hallucinations and will write him a prescription. does not want at this time. * Recommend f/u with PCP and Neurologist Dr. Cohen outpt Resolved: Dyspnea * Was dyspneic on scene according to EMS, 93% RA * No cough, CXR clear, Repeat CXR clear * Now 100% RA Diarrhea * Most likely 2/2 above * intermittent x2 weeks per ; pt does not complain of any abdominal pain or tenderness * No blood in stool * Florastor and above antibiotics Chronic: CHF * BNP 754 * Continue Lasix and Spironolactone Pacemaker Lewy Body Dementia Gout Impaired vision Hypothyroid Anticoagulation therapy Bile Duct CA s/p [place] Plan: He remains stable and continues to improve clinically Other orders as indicated above Routine AM labs Will d/c IV Levaquin; He'll get his last dose of Flagyl at 1800 today then d/c SW/ for discharge planning --> may need SNF placement; also code status needs to be addressed--> (POA) has chosen DNR/DNI Continue PT/OT DVT Prophylaxis: Warfarin GI Prophylaxis: Pepcid Ambulate with assistance Code Status: DNR/DNI; PCP: Dr. Maravilla is POA Met up with and daughter. Updated thme about his diagnoses, test results, clinical status, treatment and discharge plan. He is scheduled for d/c in AM
[2018-04-13] MEDS: metroNIDAZOLE/Normal Saline 500 MG in Premix Bag 1 BAG IV ONE ×2 (17:35→17:39)
[2018-04-13] MEDS ORDERED: Warfarin 5 MG Tab PO ONE (18:00)
[2018-04-14] MEDS: Saccharomyces Boulardii (Probiotic) 250 MG Cap PO SCH ×2 (01:55→09:09)
[2018-04-14] MEDS: Famotidine 20 MG Tab PO SCH ×2 (01:56→09:10)
[2018-04-14] MEDS: Memantine 10 MG Tab PO SCH ×2 (01:56→09:09)
--- NOTE | 2018-04-14 08:47 | CR ---
Chest: AP and lateral views of the chest were obtained. Comparison: Prior chest x-ray of 04/10/18. Heart size is within normal limits for AP technique. Mild tortuosity of the thoracic aorta is seen. Left-sided pacemaker is noted. Lungs are clear with no acute parenchymal change. Bony structures are within normal limits for the patient's age. Impression: 1. Nothing acute is seen on two-view chest x-ray. Incidental findings as noted above. Diagnostic code #2 Agree with preliminary report issued by [facility], report finalized on 04/11/18, 11:38 AM Central Time
--- NOTE | 2018-04-14 08:48 | PCM.DCSUM1 ---
Discharge Summary - Hospital Course HPI Initial Comments: This is an 77 yo male with past medical h/o CHF, pacemaker, Lewy Body Dementia, gout, impaired vision, hypothyroid, h/o bile duct CA s/p Whipple, anticoagulation therapy who comes in for fever of unknown origin and dyspnea. He was seen on 04/07 in the ED after getting a tooth pulled and he had increased confusion. ER doctor changed his medication to help lessen the confusion. Seroquel and Namenda were stopped, Lasix was increased from 40 to 60, and Sprinolactone was added. No current pain. He denies F/C, SOB, cough, nausea, vomiting, diarrhea, chest pain, or GI/ complaints. His symptoms improved after receiving O2 and antibiotics in the ED. His initial workup in the ED showed a CBC remarkable for WBC 9.3, RDW 45.5, MPV 9.2, Neut 87 % with no bandemia, Lymph 7%, ESR 33. His coagulation study shows PT 38.5, INR 3.62. His chemistry is remarkable for BUN 22, Cr 1.5, GFR 45, Glu 141, Bili 1.3 , AST 68, Alk Phos 127, CRP 2.2, BNP 754. U/A unimpressive for UTI. CXR read by ER physician as RUL PNA; formal read shows no acute abnormalities. He is subsequently admitted to the medical floor. He is Full code. His PCP is Dr. Maravilla. Diagnosis: Stroke: No - Discharge Data Discharge Date: 04/14/18 (Admit date: 04/10/18) Discharge Disposition: DC/Tfer to SNF 03 Condition: Good - Discharge Diagnosis/Problem(s) (1) Bladder wall thickening SNOMED Code(s): 759725814 ICD Code: N32.89 - OTHER SPECIFIED DISORDERS OF BLADDER Status: Acute Priority: High (2) Fever, unknown origin SNOMED Code(s): 3045359 ICD Code: R50.9 - FEVER, UNSPECIFIED Status: Acute Priority: High (3) Proctitis SNOMED Code(s): 7206212 ICD Code: K62.89 - OTHER SPECIFIED DISEASES OF ANUS AND RECTUM Status: Acute Priority: High (4) Chronic congestive heart failure SNOMED Code(s): 50981491 ICD Code: I50.9 - HEART FAILURE, UNSPECIFIED Status: Acute Qualifiers: Heart failure type: diastolic Qualified Code(s): I50.32 - Chronic diastolic (congestive) heart failure (5) Lewy body dementia SNOMED Code(s): 045476001 ICD Code: G31.83 - DEMENTIA WITH LEWY BODIES; F02.80 - DEMENTIA IN OTH DISEASES CLASSD ELSWHR W/O BEHAVRL DISTURB Status: Acute Priority: High Qualifiers: Dementia behavioral disturbance: without behavioral disturbance Qualified Code(s): G31.83 - Dementia with Lewy bodies; F02.80 - Dementia in other diseases classified elsewhere without behavioral disturbance - Patient Summary/Data Consults: Consultations 04/10/18 10:47 Consult to Case Management [CONS] Routine Consult to Tin Stacker [CONS] Routine Consult to Spiritual Care [CONS] Routine OT Evaluation and Treatment [CONS] Routine PT Evaluation and Treatment [CONS] Routine Respiratory Care Assess and Treatment [CONS] Routine Labs Pending at D/C: none Recommended Follow-up Testing/Procedures: Follow-up with PCP within 7-10 days, sooner if needed Follow-up with neurology as needed. Hospital Course: I/P: Acute: Proctitis and Possible Cystitis, Continues to Improved * Fever resolved; 101.8 rectally in ED --> 98.2 now * WBC 9.3--> 7.15 (Normal), ESR 33, CRP 2.2--> 7.3--> 5.5--> now at 4 * U/A negative for UTI * Sepsis Protocol: * Lactic Acid normal at 1.6 * Blood cultures--> Klebsiella pneumoniae in 1 sample; susceptible to Levaquin , continue current Abx regimen * Repeat Blood cultures --> no growth after 3 days * Rocephin started in ED--> D/C; there seems to be no clear source of infection * Tylenol given in ED--> Continue PRN * CT Abdomen --> 1. No definitive sign of bile duct cancer 2. Proctitis 3. Bladder thickening that could be cystitis, wall hypertrophy, or other. 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 Cohen, who agrees with the plan of starting Namenda and D/Cing Seroquel. Would like to start him on Nuplazid for Hallucinations and will write him a prescription. does not want at this time. * Recommend f/u with PCP and Neurologist Dr. Cohen outpt Resolved: Dyspnea * Was dyspneic on scene according to EMS, 93% RA * No cough, CXR clear, Repeat CXR clear * Now 100% RA Diarrhea * Most likely 2/2 above * intermittent x2 weeks per ; pt does not complain of any abdominal pain or tenderness * No blood in stool * Florastor and above antibiotics Chronic: CHF * BNP 754 * Continue Lasix and Spironolactone Pacemaker Lewy Body Dementia Gout Impaired vision Hypothyroid Anticoagulation therapy Bile Duct CA s/p Whipple Plan: He remains stable and continues to improve clinically Other orders as indicated above Routine AM labs Will d/c IV Levaquin; He'll get his last dose of Flagyl at 1800 today then d/c SW/CM for discharge planning --> may need SNF placement; also code status needs to be addressed--> (POA) has chosen DNR/DNI Continue PT/OT DVT Prophylaxis: Warfarin GI Prophylaxis: Pepcid Ambulate with assistance Code Status: DNR/DNI; PCP: Dr. Maravilla is POA Overall Randell did quite well. He only had one documented fever (101.8 rectally in the ED) and otherwise remained afebrile. He was reportedly having some respiratory distress prior to ED arrival and his workup here revealed nothing in terms of respiratory causes. UA was negative. Abdominal CT was obtained and suggested possible proctitis and bladder wall thickening. He was given rocephin in the ED. This was stopped as his labs looked good and CRP was minor. Once his CPR continued to elevate and the abdominal CT were obtained he was given one dose of levaquin and started on Flagyl for 3 days total. His medications were adjusted at a prior visit in the ED and his PCP, along with his neurologist were contacted while he was here. The decision was made to stop seroquel and restart his Namenda. His neurologist wanted to start him on Nuplazid, however the family ultimately refused this. His PCP agreed with the decision to stop antibiotics and recommended BID temperature checks for 10 days to ensure the patient does not have a infection building. He has not been requiring any oxygen. His confusion continued to wax and wane. PT/OT worked with him and the recommendation was made for SNF placement. He should continue to work with PT/ OT. They have been recommending a front wheeled walker as well. He will be discharged on a probiotic. Other home meds were continued with the changes as mentioned prior. was aware of discharge plan and in agreement. He will be discharged to [facility] today. - Patient Instructions Diet: Heart Healthy Diet Activity: As Tolerated Driving: Do Not Drive Notify Provider of: Fever, Increased Pain, Nausea and/or Vomiting Other/Special Instructions: -Follow-up with PCP within 7-10 days of discharge. -Follow-up with neurology as needed. -Take all medications as prescribed. - Check temperature BID for next 10 days. -Should symptoms return or worsen contact your primary care provider, come to a walk-in clinic, or return to the emergency room. - Discharge Plan *PRESCRIPTION DRUG MONITORING PROGRAM REVIEWED*: No *COPY OF PRESCRIPTION DRUG MONITORING REPORT IN PATIENT NICKOLAS: No Prescriptions/Med Rec: Saccharomyces Boulardii [Florastor] 250 mg PO BID #60 cap Home Medications: Home Meds Allopurinol [Zyloprim] 50 mg PO DAILY 04/07/18 [History] Furosemide 60 mg PO DAILY 04/07/18 [History] Levothyroxine [Synthroid] 50 mcg PO ACBREAKFAST 04/07/18 [History] Metoprolol Succinate [Toprol XL 100mg] 100 mg PO DAILY 04/07/18 [History] Rivastigmine 1 each TD DAILY 04/07/18 [History] Spironolactone [Aldactone] 25 mg PO DAILY #21 tab 04/07/18 [Rx] Warfarin Sodium [Jantoven] 10 mg PO DAILY 04/10/18 [History] Memantine HCl 5 mg PO BID 04/11/18 [History] Saccharomyces Boulardii [Florastor] 250 mg PO BID #60 cap 04/14/18 [Rx] Patient Handouts: Lewy Body Dementia Referrals: Adrian Maravilla MD [Primary Care Provider] - (Please follow-up with your primary care doctor in 1 to 2 weeks of discharge. ) - Discharge Summary/Plan Comment DC Time >30 min.: Yes (45 mins) - General Info Date of Service: 04/14/18 Admission Dx/Problem (Free Text: Admission Diagnosis/Problem Admission Diagnosis/Problem Pneumonia Subjective Update: In to see Randell. He had a good night and slept very well. He reports no pain or concerns. No nursing concerns. Family including , who is POA is at bedside. All are updated on progress and plan for discharge. Dr. Maravilla was contacted and agrees to discharge plan of stopping seroquel, continuing Namenda , and no antibiotics on discharge. Will be discharged on probiotic. No concerns from family. He will be discharged today. Functional Status: Reports: Pain Controlled, Tolerating Diet, Ambulating, Urinating. Denies: New Symptoms - Review of Systems General: Reports: Weakness. Denies: Fever, Fatigue, Chills, Night Sweats HEENT: Reports: No Symptoms. Denies: Sore Throat Pulmonary: Reports: No Symptoms. Denies: Shortness of Breath, Cough, Sputum, Wheezing Cardiovascular: Reports: No Symptoms. Denies: Chest Pain, Palpitations, Dyspnea on Exertion Gastrointestinal: Reports: No Symptoms. Denies: Abdominal Pain, Constipation, Diarrhea, Difficulty Swallowing, Nausea, Vomiting Genitourinary: Reports: No Symptoms. Denies: Dysuria, Frequency, Burning, Pain Musculoskeletal: Reports: No Symptoms Skin: Reports: No Symptoms Neurological: Reports: Confusion, Weakness. Denies: Dizziness Psychiatric: Reports: No Symptoms - Patient Data Vitals - Most Recent: Last Vital Signs Temp 99.3 F 04/14/18 06:50 Pulse 59 L 04/14/18 06:50 Resp 22 H 04/14/18 06:50 BP 124/80 04/14/18 06:50 Pulse Ox 95 04/14/18 06:50 Weight - Most Recent: 183 lb I&O - Last 24 hours: Intake & Output 04/13/18 04/14/18 04/14/18 22:59 06:59 14:59 Intake Total 960 300 Output Total 1200 Balance 960 -900 Lab Results - Last 24 hrs: Laboratory Results - last 24 hr 04/14/18 04/14/18 04/14/18 Range/Units 06:35 06:35 06:35 WBC 6.72 (4.23-9.07) K/mm3 RBC 4.46 L (4.63-6.08) M/mm3 Hgb 13.9 (13.7-17.5) gm/L Hct 40.8 (40.1-51.0) % MCV 91.5 (79.0-92.2) fl MCH 31.2 (25.7-32.2) pg MCHC 34.1 (32.2-35.5) g/dl RDW Std Deviation 43.4 (35.1-43.9) fL Plt Count 181 (163-337) K/mm3 MPV 9.0 L (9.4-12.3) fl Neut % (Auto) 66.9 (34.0-67.9) % Lymph % (Auto) 21.3 L (21.8-53.1) % Turner % (Auto) 8.3 (5.3-12.2) % Eos % (Auto) 3.3 (0.8-7.0) Baso % (Auto) 0.1 (0.1-1.2) % Neut # (Auto) 4.49 (1.78-5.38) K/mm3 Lymph # (Auto) 1.43 (1.32-3.57) K/mm3 Turner # (Auto) 0.56 (0.30-0.82) K/mm3 Eos # (Auto) 0.22 (0.04-0.54) K/mm3 Baso # (Auto) 0.01 (0.01-0.08) K/mm3 PT 24.5 H (9.5-12.1) SECONDS INR 2.28 Sodium 140 (136-145) mEq/L Potassium 3.7 (3.5-5.1) mEq/L Chloride 104 (98-107) mEq/L Carbon Dioxide 29 (21-32) mEq/L Anion Gap 10.7 (5-15) BUN 17 (7-18) mg/dL Creatinine 1.4 H (0.7-1.3) mg/dL Est Cr Clr Drug Dosing 40.00 mL/min Estimated GFR (MDRD) 49 (>60) mL/min BUN/Creatinine Ratio 12.1 L (14-18) Glucose 98 (83-115) mg/dL Calcium 8.9 (8.5-10.1) mg/dL Magnesium 2.0 (1.8-2.4) mg/dl C-Reactive Protein 2.1 H* (<1.0) mg/dL [place] Results - Last 24 hrs: Microbiology 04/11/18 05:04 Aerobic Blood Culture - Preliminary Blood - Venous - Lab Draw NO GROWTH AFTER 3 DAYS Anaerobic Blood Culture - Preliminary NO GROWTH AFTER 3 DAYS 04/11/18 04:54 Aerobic Blood Culture - Preliminary Blood - Venous NO GROWTH AFTER 3 DAYS Anaerobic Blood Culture - Preliminary NO GROWTH AFTER 3 DAYS 04/10/18 00:20 Aerobic Blood Culture - Preliminary Blood - Venous NO GROWTH AFTER 4 DAYS Anaerobic Blood Culture - Preliminary NO GROWTH AFTER 4 DAYS 04/10/18 00:33 Aerobic Blood Culture - Preliminary Blood - Venous - Lab Draw NO GROWTH AFTER 4 DAYS Anaerobic Blood Culture - Final Klebsiella Pneumoniae Med Orders - Current: Current Medications Acetaminophen (Tylenol) 650 mg PO Q4H PRN PRN Reason: Pain (Mild 1-3)/fever Albuterol/Ipratropium (Duoneb 3.0-0.5 Mg/3 Ml) 3 ml NEB Q4H PRN PRN Reason: Shortness Of Breath/wheezing Allopurinol (Zyloprim) 50 mg PO DAILY [facility] Last Admin: 04/13/18 08:34 Dose: 50 mg Bisacodyl (Dulcolax) 5 mg PO DAILY PRN PRN Reason: Constipation Docusate Sodium (Colace) 100 mg PO BID PRN PRN Reason: Constipation Famotidine (Pepcid) 20 mg PO BID [facility] Last Admin: 04/14/18 01:56 Dose: Not Given Furosemide (Lasix) 60 mg PO DAILY [facility] Last Admin: 04/13/18 08:34 Dose: 60 mg Hydralazine HCl (Apresoline) 10 mg IVPUSH Q6H PRN PRN Reason: Hypertension Levothyroxine Sodium (Synthroid) 50 mcg PO ACBREAKFAST [facility] Last Admin: 04/13/18 06:21 Dose: 50 mcg Lorazepam (Ativan) 0.25 mg PO Q4H PRN PRN Reason: Anxiety Last Admin: 04/13/18 00:33 Dose: 0.25 mg Lorazepam (Ativan) 0.25 mg IVPUSH Q4H PRN PRN Reason: Anxiety Magnesium Sulfate (Pharmacy To Dose - Magnesium Replacement) 1 dose .XX ASDIRECTED [facility] Memantine (Namenda) 5 mg PO BID [facility] Last Admin: 04/14/18 01:56 Dose: Not Given Metoprolol Succinate (Toprol Xl) 100 mg PO DAILY [facility] Last Admin: 04/13/18 10:32 Dose: Not Given Metoprolol Tartrate (Lopressor) 5 mg IVPUSH Q4H PRN PRN Reason: Tachycardia Ondansetron HCl (Zofran Odt) 4 mg PO Q6H PRN PRN Reason: nausea, able to take PO Ondansetron HCl (Zofran) 4 mg IV Q6H PRN PRN Reason: Nausea/Vomiting Rivastigmine 9.5mg (PatchOwn Med) 0 each TOP DAILY@1600 [facility] Last Admin: 04/13/18 15:18 Dose: 1 each Polyethylene Glycol (Miralax) 17 gm PO DAILY PRN PRN Reason: Constipation Last Admin: 04/11/18 11:12 Dose: 17 gm Potassium Chloride (Pharmacy To Dose - Potassium Replacement) 1 dose .XX ASDIRECTED [facility] Saccharomyces Boulardii (Florastor) 250 mg PO BID [facility] Last Admin: 04/14/18 01:55 Dose: Not Given Senna/Docusate Sodium (Senna Plus) 1 tab PO BID PRN PRN Reason: Constipation Sodium Chloride (Saline Flush) 10 ml FLUSH ASDIRECTED PRN PRN Reason: Keep Vein Open Spironolactone (Aldactone) 25 mg PO DAILY [facility] Last Admin: 04/13/18 08:34 Dose: 25 mg Warfarin Sodium (Pharmacy To Dose - Warfarin) 0 dose .XX ASDIRECTED PRN PRN Reason: RX TO DOSE WARFARIN Discontinued Medications Acetaminophen (Tylenol) 650 mg PO NOW ONE Stop: 04/10/18 01:03 Last Admin: 04/10/18 01:09 Dose: 650 mg Ceftriaxone Sodium 1 gm/ (Sodium Chloride) 100 mls @ 200 mls/hr IV ONETIME ONE Stop: 04/10/18 02:07 Last Admin: 04/10/18 02:02 Dose: 200 mls/hr Ceftriaxone Sodium 1 gm/ (Sodium Chloride) 100 mls @ 200 mls/hr IV Q24H [facility] Magnesium Sulfate 2 gm/ Premix 50 mls @ 25 mls/hr IV ONETIME ONE Stop: 04/11/18 10:59 Last Admin: 04/11/18 08:08 Dose: 25 mls/hr Sodium Chloride (Normal Saline) 100 mls @ 60 mls/hr IV ASDIRECTED [facility] Stop: 04/11/18 18:24 Last Admin: 04/11/18 16:53 Dose: 60 mls/hr Levofloxacin/Dextrose 750 mg/ (Premix) 150 mls @ 100 mls/hr IV Q48H [facility] Last Admin: 04/11/18 18:39 Dose: 100 mls/hr Metronidazole 500 mg/ Premix 100 mls @ 100 mls/hr IV Q12H [facility] Last Admin: 04/13/18 08:35 Dose: 100 mls/hr Metronidazole 500 mg/ Premix 100 mls @ 100 mls/hr IV ONETIME ONE Stop: 04/13/18 18:59 Last Admin: 04/13/18 17:39 Dose: Not Given Iopamidol (Isovue-370 (76%)) 100 ml IVPUSH ONETIME ONE Stop: 04/11/18 16:44 Last Admin: 04/11/18 16:53 Dose: 80 ml Lorazepam (Ativan) Confirm Administered Dose 2 mg .ROUTE .STK-MED ONE Stop: 04/12/18 23:47 Last Admin: 04/13/18 06:14 Dose: Not Given Rivastigmine [ (Rivastigmine] 1 Each) 0 each TOP DAILY [facility] Last Admin: 04/10/18 19:01 Dose: Not Given Potassium Chloride (Klor-Con M20) 40 meq PO ONETIME ONE Stop: 04/11/18 09:01 Last Admin: 04/11/18 08:06 Dose: 40 meq Sodium Chloride (Saline Flush) 10 ml FLUSH ONETIME ONE Stop: 04/11/18 16:44 Last Admin: 04/11/18 16:53 Dose: 10 ml Warfarin Sodium (Coumadin) 10 mg PO SuMoWeFrSa [facility] Warfarin Sodium (Coumadin) 5 mg PO TuTh@1800 [facility] Warfarin Sodium (Coumadin Sliding Scale) 0 each PO QPM [facility] Stop: 04/10/18 21:00 Last Admin: 04/10/18 19:44 Dose: Not Given Warfarin Sodium (Coumadin) 10 mg PO DAILY@1800 [facility] Stop: 04/11/18 21:00 Last Admin: 04/11/18 17:08 Dose: 10 mg Warfarin Sodium (Coumadin) 10 mg PO DAILY@1800 [facility] Stop: 04/12/18 21:00 Last Admin: 04/12/18 17:46 Dose: 10 mg Warfarin Sodium (Coumadin) 5 mg PO ONETIME ONE Stop: 04/13/18 18:01 Last Admin: 04/13/18 17:34 Dose: 5 mg - Exam Quality Assessment: Reports: Supplemental Oxygen, DVT Prophylaxis General: Reports: Alert, Cooperative, No Acute Distress. Denies: Oriented HEENT: Reports: Pupils Equal, Pupils Reactive, EOMI, Mucous Membr. Moist/[place] Neck: Reports: Supple, Trachea Midline, No JVD Lungs: Reports: Clear to Auscultation, Normal Respiratory Effort Cardiovascular: Reports: Regular Rate, Regular Rhythm, Other (pacemaker) GI/Abdominal Exam: Normal Bowel Sounds, Soft, Non-Tender, No Distention (Male) Exam: Deferred Rectal (Males) Exam: Deferred Extremities: Normal Inspection, Normal Range of Motion, Non-Tender, No Pedal Edema, Normal Capillary Refill Skin: Reports: Warm, Dry, Intact Neurological: Reports: No New Focal Deficit Psy/Mental Status: Reports: Alert, Normal Affect, Normal Mood. Denies: Anxious , Depressed, Agitated
[2018-04-14] MEDS: Levothyroxine 50 MCG Tab PO SCH (09:10)
[2018-04-14] MEDS: Furosemide 40 MG Tab PO SCH (09:10)
[2018-04-14] MEDS: Spironolactone 25 MG Tab PO SCH (09:10)
[2018-04-14] MEDS: Allopurinol 100 MG Tab PO SCH (09:10)
[2018-04-14] MEDS: Metoprolol Succinate 50 MG Tab.ER PO SCH (09:11)
== END 2018-04-14 11:00 | DRG 395 ==
LOC: JD.ED 23:53 → SUPCPDRO 23:53 → JD.MS 04-10 02:25
PROVIDERS: ADMIT Internal Medicine; ATTEND Internal Medicine
DX: K62.89 Other specified diseases of anus and rectum (principal); N30.90 Cystitis, unspecified without hematuria; G31.83 Neurocognitive disorder with Lewy bodies; F02.80 Dementia in other diseases classified elsewhere, unspecified severity, without behavioral disturbance, psychotic disturbance, mood disturbance, and anxiety; I50.9 Heart failure, unspecified; R26.2 Difficulty in walking, not elsewhere classified; R41.0 Disorientation, unspecified; I11.0 Hypertensive heart disease with heart failure; H54.7 Unspecified visual loss; M10.9 Gout, unspecified; E03.9 Hypothyroidism, unspecified; R32 Unspecified urinary incontinence; R09.02 Hypoxemia; R19.7 Diarrhea, unspecified; R06.03 Acute respiratory distress; Z66 Do not resuscitate; J18.1 Lobar pneumonia, unspecified organism; Z87.891 Personal history of nicotine dependence; Z95.0 Presence of cardiac pacemaker; Z86.010 Personal history of colon polyps; Z85.89 Personal history of malignant neoplasm of other organs and systems; Z88.4 Allergy status to anesthetic agent; Z79.899 Other long term (current) drug therapy; Z79.01 Long term (current) use of anticoagulants
CPT/HCPCS: 36415; 71045; 80053; 81001; 83605; 83880; 85007; 85027; 85652; 86140; 87040 ×2; 93005; 96365; 99285; A9270; J0696; J7030; 71046; 71046-26; 74177; 74177-26; 80048; 83735; 85025; 85610; 87088; 87186; 97110-GO; 97110-GP; 97116-GP; 97161-GP; 97167-GO; 97530-GO; 99284; J1956; J3475; J3490; J7050; Q9967

== ENCOUNTER 2020-06-01 09:33 | Inpatient (IN) | payer MEDICARE, BC, MEDICAID ==
--- NOTE | 2020-06-01 09:41 | EDM.PDOC ---
ED HPI GENERAL MEDICAL PROBLEM - General Chief Complaint: Respiratory Problem Stated Complaint: [facility] Time Seen by Provider: 06/01/20 09:41 - History of Present Illness INITIAL COMMENTS - FREE TEXT/NARRATIVE: 80-year-old male presents to the emergency room with decreased alertness and a cough. Patient has advanced dementia, he has Lewy body disease. Over the last 24 to 36 hours the patient has become a little less responsive. He has a developing a cough. He resides at the [facility]. No other significant history. The patient is unable to talk or communicate. - Related Data Allergies Allergy/AdvReac Type Severity Reaction Status Date / Time procaine Allergy Unknown unknown Verified 06/01/20 09:42 Home Meds: Home Meds Furosemide 60 mg PO DAILY 04/07/18 [History] Levothyroxine [Synthroid] 50 mcg PO ACBREAKFAST 04/07/18 [History] allopurinoL [Zyloprim] 50 mg PO DAILY 04/07/18 [History] Warfarin Sodium [Jantoven] 7.5 mg PO SUTUTHSA 04/10/18 [History] Acetaminophen [Pain Reliever] 650 mg PO DAILY PRN 06/02/18 [History] Sennosides/Docusate Sodium [Senna Plus Tablet] 1 tab PO DAILY PRN 06/02/18 [History] Warfarin Sodium [Coumadin] 10 mg PO MOWEFR 06/02/18 [History] Brimonidine Tartrate [Lumify] 1 drop EYEBOTH DAILY PRN 06/01/20 [History] Magnesium Hydroxide [Milk of Magnesia] 30 ml PO TID PRN 06/01/20 [History] Metoprolol Tartrate [Lopressor] 25 mg PO DAILY 06/01/20 [History] Propylene Glycol/PEG 400/Pf [Systane 0.3-0.4% Eye Drop] 1 drop EYEBOTH BID PRN 06/01/20 [History] Sennosides [Senna] 8.6 mg PO BID 06/01/20 [History] Trolamine Salicylate/Aloe Vera [Aspercreme 10%] 1 applic TOP BID 06/01/20 [History] bisacodyL [Bisacodyl] 10 mg RECTAL DAILY PRN 06/01/20 [History] polyethylene glycoL 3350 [MiraLAX] 17 gm PO DAILY 06/01/20 [History] Past Medical History HEENT History: Reports: Impaired Vision Other HEENT History: wears glasses Cardiovascular History: Reports: Heart Failure, Pacemaker Respiratory History: Reports: Asthma Gastrointestinal History: Reports: Colon Polyp Other Gastrointestinal History: bile duct cancer, 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 new bile duct is made out of intestinal tract Genitourinary History: Reports: Other (See Below) Other Genitourinary History: lately patient has had some incontinence issues Musculoskeletal History: Reports: Gout Neurological History: Reports: Other (See Below) Other Neuro History: lewie body dementia, aggressive behaviors Psychiatric History: Reports: Dementia, Other (See Below) Other Psychiatric History: agressive behaviors with dementia Endocrine/Metabolic History: Reports: Hypothyroidism Hematologic History: Reports: Anticoagulation Therapy Other Oncologic History: bile duct 10 years ago Dermatologic History: Reports: Other (See Below) Other Dermatologic History: discolored lower legs bilaterally, has had this for a long time - Past Surgical History HEENT Surgical History: Reports: Other (See Below) Other HEENT Surgeries/Procedures: teeth pulled Social & Family History - Family History Family Medical History: Noncontributory - Caffeine Use Caffeine Use: Reports: Coffee - Living Situation & Occupation Living situation: Reports: , with Family ( cares for him.) Occupation: Retired ED ROS GENERAL - Review of Systems Review Of Systems: Unable To Obtain Reason Not Obtained: Advanced dementia decreased LOC ED EXAM, GENERAL - Physical Exam Exam: See Below Exam Limited By: No Limitations General Appearance: Alert, No Apparent Distress, Other (Patient is tachypneic otherwise in no acute distress he does not respond to any verbal stimuli) Eye Exam: Bilateral Eye: Normal Inspection Ears: Normal External Exam, Normal Canal, Hearing Grossly Normal, Normal TMs Nose: Normal Inspection, Normal Mucosa, No Blood Throat/Mouth: Normal Inspection, Normal Lips, Normal Teeth Head: Atraumatic, Normocephalic Neck: Normal Inspection. No: Lymphadenopathy (L), Lymphadenopathy (R) Respiratory/Chest: Decreased Breath Sounds, Crackles, Other (Monitoring friction rub noted especially in the left base however this is heard in the right side as well). No: Respiratory Distress Cardiovascular: Normal Peripheral Pulses, Regular Rate, Rhythm, No Edema, No Murmur GI/Abdominal: Normal Bowel Sounds, Soft, Non-Tender Back Exam: Normal Inspection. No: CVA Tenderness (L), CVA Tenderness (R) Extremities: Normal Inspection, No Pedal Edema Course - Vital Signs Last Recorded V/S: Last Vital Signs Temp 37.2 C 06/01/20 09:38 Pulse 68 06/01/20 09:38 Resp 34 H 06/01/20 09:38 BP 126/82 06/01/20 09:38 Pulse Ox 91 L 06/01/20 10:21 - Orders/Labs/Meds Orders: Active Orders 24 hr Category Date Time Status EKG Documentation Completion [RC] STAT Care 06/01/20 10:01 Active RT Aerosol Therapy [RC] ASDIRECTED Care 06/01/20 10:04 Active Chest 1V Frontal [CR] Stat Exams 06/01/20 10:04 Taken CULTURE BLOOD [BC] Stat Lab 06/01/20 10:25 Received CULTURE BLOOD [BC] Stat Lab 06/01/20 10:32 Received Oseltamivir [Tamiflu] Med 06/01/20 14:13 Once 30 mg PO ONETIME ONE Blood Culture x2 Reflex Set [OM.PC] Stat Oth 06/01/20 10:01 Ordered Isolation [COMM] Routine Oth 06/01/20 13:09 Ordered Medication Orders Oseltamivir Phosphate (Tamiflu) 30 mg PO ONETIME ONE Stop: 06/01/20 14:14 Labs: Laboratory Tests 06/01/20 06/01/20 06/01/20 Range/Units 10:00 10:00 10:00 WBC 9.28 H (4.23-9.07) K/mm3 RBC 4.61 L (4.63-6.08) M/mm3 Hgb 14.2 (13.7-17.5) gm/dl Hct 43.6 (40.1-51.0) % MCV 94.6 H D (79.0-92.2) fl MCH 30.8 (25.7-32.2) pg MCHC 32.6 (32.2-35.5) g/dl RDW Std Deviation 47.9 H (35.1-43.9) fL Plt Count 174 (163-337) K/mm3 MPV 8.7 L (9.4-12.3) fl Neutrophils % (Manual) 77 H (40-60) % Band Neutrophils % 2 (0-10) % Lymphocytes % (Manual) 17 L (20-40) % Atypical Lymphs % 0 % Monocytes % (Manual) 3 (2-10) % Eosinophils % (Manual) 1 (0.8-7.0) % Basophils % (Manual) 0 L (0.2-1.2) Platelet Estimate Adequate RBC Morph Comment Normal PT 27.4 H (9.7-11.7) SECONDS INR 2.61 APTT 38 H (22-31) SECONDS D-Dimer, Quantitative (0.19-0.50) mg/L Sodium 141 (136-145) mEq/L Potassium 4.1 (3.5-5.1) mEq/L Chloride 103 (98-107) mEq/L Carbon Dioxide 30 (21-32) mEq/L Anion Gap 12.1 (5-15) BUN 19 H (7-18) mg/dL Creatinine 1.1 (0.7-1.3) mg/dL Est Cr Clr Drug Dosing 51.78 mL/min Estimated GFR (MDRD) > 60 (>60) mL/min BUN/Creatinine Ratio 17.3 (14-18) Glucose 104 (83-115) mg/dL Lactic Acid (0.4-2.0) mmol/L Calcium 8.8 (8.5-10.1) mg/dL Ferritin (26-388) ng/ml Total Bilirubin 2.2 H (0.2-1.0) mg/dL AST 32 (15-37) U/L ALT 38 (16-63) U/L Alkaline Phosphatase 156 H (46-116) U/L Lactate Dehydrogenase 162 (85-227) U/L Troponin I 0.021 (0.00-0.056) ng/mL C-Reactive Protein 4.8 H* (<1.0) mg/dL Total Protein 7.3 (6.4-8.2) g/dl Albumin 3.3 L (3.4-5.0) g/dl Globulin 4.0 gm/dL Albumin/Globulin Ratio 0.8 L (1-2) Urine Color (Yellow) Urine Appearance (Clear) Urine pH (5.0-8.0) Ur Specific Dickson (1.005-1.030) Urine Protein (Negative) Urine Glucose (UA) (Negative) Urine Ketones (Negative) Urine Occult Blood (Negative) Urine Nitrite (Negative) Urine Bilirubin (Negative) Urine Urobilinogen (0.2-1.0) Ur Leukocyte Esterase (Negative) Urine RBC (0-5) /hpf Urine WBC (0-5) /hpf Ur Squamous Epith Cells (0-5) /hpf Urine Bacteria (FEW) /hpf Urine Mucus (FEW) /hpf SARS-CoV-2 RNA (SHONDA) (NEGATIVE) 06/01/20 06/01/20 06/01/20 Range/Units 10:00 10:00 10:00 WBC (4.23-9.07) K/mm3 RBC (4.63-6.08) M/mm3 Hgb (13.7-17.5) gm/dl Hct (40.1-51.0) % MCV (79.0-92.2) fl MCH (25.7-32.2) pg MCHC (32.2-35.5) g/dl RDW Std Deviation (35.1-43.9) fL Plt Count (163-337) K/mm3 MPV (9.4-12.3) fl Neutrophils % (Manual) (40-60) % Band Neutrophils % (0-10) % Lymphocytes % (Manual) (20-40) % Atypical Lymphs % % Monocytes % (Manual) (2-10) % Eosinophils % (Manual) (0.8-7.0) % Basophils % (Manual) (0.2-1.2) Platelet Estimate RBC Morph Comment PT (9.7-11.7) SECONDS INR APTT (22-31) SECONDS D-Dimer, Quantitative 0.26 (0.19-0.50) mg/L Sodium (136-145) mEq/L Potassium (3.5-5.1) mEq/L Chloride (98-107) mEq/L Carbon Dioxide (21-32) mEq/L Anion Gap (5-15) BUN (7-18) mg/dL Creatinine (0.7-1.3) mg/dL Est Cr Clr Drug Dosing mL/min Estimated GFR (MDRD) (>60) mL/min BUN/Creatinine Ratio (14-18) Glucose (83-115) mg/dL Lactic Acid 0.8 (0.4-2.0) mmol/L Calcium (8.5-10.1) mg/dL Ferritin 650 H (26-388) ng/ml Total Bilirubin (0.2-1.0) mg/dL AST (15-37) U/L ALT (16-63) U/L Alkaline Phosphatase (46-116) U/L Lactate Dehydrogenase (85-227) U/L Troponin I (0.00-0.056) ng/mL C-Reactive Protein (<1.0) mg/dL Total Protein (6.4-8.2) g/dl Albumin (3.4-5.0) g/dl Globulin gm/dL Albumin/Globulin Ratio (1-2) Urine Color (Yellow) Urine Appearance (Clear) Urine pH (5.0-8.0) Ur Specific Dickson (1.005-1.030) Urine Protein (Negative) Urine Glucose (UA) (Negative) Urine Ketones (Negative) Urine Occult Blood (Negative) Urine Nitrite (Negative) Urine Bilirubin (Negative) Urine Urobilinogen (0.2-1.0) Ur Leukocyte Esterase (Negative) Urine RBC (0-5) /hpf Urine WBC (0-5) /hpf Ur Squamous Epith Cells (0-5) /hpf Urine Bacteria (FEW) /hpf Urine Mucus (FEW) /hpf SARS-CoV-2 RNA (SHONDA) (NEGATIVE) 06/01/20 06/01/20 Range/Units 11:00 11:35 WBC (4.23-9.07) K/mm3 RBC (4.63-6.08) M/mm3 Hgb (13.7-17.5) gm/dl Hct (40.1-51.0) % MCV (79.0-92.2) fl MCH (25.7-32.2) pg MCHC (32.2-35.5) g/dl RDW Std Deviation (35.1-43.9) fL Plt Count (163-337) K/mm3 MPV (9.4-12.3) fl Neutrophils % (Manual) (40-60) % Band Neutrophils % (0-10) % Lymphocytes % (Manual) (20-40) % Atypical Lymphs % % Monocytes % (Manual) (2-10) % Eosinophils % (Manual) (0.8-7.0) % Basophils % (Manual) (0.2-1.2) Platelet Estimate RBC Morph Comment PT (9.7-11.7) SECONDS INR APTT (22-31) SECONDS D-Dimer, Quantitative (0.19-0.50) mg/L Sodium (136-145) mEq/L Potassium (3.5-5.1) mEq/L Chloride (98-107) mEq/L Carbon Dioxide (21-32) mEq/L Anion Gap (5-15) BUN (7-18) mg/dL Creatinine (0.7-1.3) mg/dL Est Cr Clr Drug Dosing mL/min Estimated GFR (MDRD) (>60) mL/min BUN/Creatinine Ratio (14-18) Glucose (83-115) mg/dL Lactic Acid (0.4-2.0) mmol/L Calcium (8.5-10.1) mg/dL Ferritin (26-388) ng/ml Total Bilirubin (0.2-1.0) mg/dL AST (15-37) U/L ALT (16-63) U/L Alkaline Phosphatase (46-116) U/L Lactate Dehydrogenase (85-227) U/L Troponin I (0.00-0.056) ng/mL C-Reactive Protein (<1.0) mg/dL Total Protein (6.4-8.2) g/dl Albumin (3.4-5.0) g/dl Globulin gm/dL Albumin/Globulin Ratio (1-2) Urine Color Dark yellow (Yellow) Urine Appearance Clear (Clear) Urine pH 7.0 (5.0-8.0) Ur Specific Dickson 1.025 (1.005-1.030) Urine Protein 1+ H (Negative) Urine Glucose (UA) Negative (Negative) Urine Ketones Negative (Negative) Urine Occult Blood Negative (Negative) Urine Nitrite Negative (Negative) Urine Bilirubin Negative (Negative) Urine Urobilinogen 2.0 H (0.2-1.0) Ur Leukocyte Esterase Negative (Negative) Urine RBC 0-5 (0-5) /hpf Urine WBC Not seen (0-5) /hpf Ur Squamous Epith Cells 0-5 (0-5) /hpf Urine Bacteria Rare (FEW) /hpf Urine Mucus Few (FEW) /hpf SARS-CoV-2 RNA (SHONDA) Negative (NEGATIVE) Meds: Medications Generic Name Dose Route Start Last Admin Trade Name Freq PRN Reason Stop Dose Admin Oseltamivir Phosphate 30 mg 06/01/20 14:13 Tamiflu PO 06/01/20 14:14 ONETIME ONE Discontinued Medications Generic Name Dose Route Start Last Admin Trade Name Ni PRN Reason Stop Dose Admin Albuterol/Ipratropium 3 ml 06/01/20 10:04 06/01/20 10:20 Duoneb 3.0-0.5 Mg/3 Ml NEB 06/01/20 10:05 3 ml ONETIME ONE Administration Lorazepam 0.5 mg 06/01/20 10:24 06/01/20 10:48 Ativan IVPUSH 06/01/20 10:25 0.5 mg ONETIME ONE Administration Morphine Sulfate 1 mg 06/01/20 10:24 06/01/20 10:48 Morphine IVPUSH 06/01/20 10:25 1 mg ONETIME ONE Administration - Re-Assessments/Exams Free Text/Narrative Re-Assessment/Exam: 06/01/20 10:12 I had the opportunity to discuss the patient's care plan with the patient's . They are leaning more towards comfort care if something is treatable easily they would like it treated but absolutely no aggressive measures. And C-reactive protein are elevated 14:15 X-ray is unremarkable for acute disease he has some cardiomegaly and some chronic lung changes. Laboratory evaluation is remarkable for a positive influenza B. Based on his renal function be started on Tamiflu 30 mg twice daily. His ferritin and C-reactive protein are elevated LDH is normal. White count is minimally elevated. Troponin negative INR is therapeutic he is on warfarin. With his tachypnea I discussed the patient's case with Dr. Melendez, our hospitalist the patient did respond favorably to nebulizers here we will put him on observation for neb treatment anticipate discharge to the alf soon. Departure - Departure Time of Disposition: 14:17 Disposition: Home, Self-Care 01 Clinical Impression: Influenza B - Discharge Information Referrals: PCP,None [Ordering Only Provider] - Forms: ED Department Discharge Sepsis Event Note (ED) - Focused Exam Vital Signs: Vital Signs Temp Pulse Resp BP Pulse Ox Pulse Ox 06/01/20 10:21 91 L 06/01/20 09:38 37.2 C 68 34 H 126/82 94 L - My Orders Last 24 Hours: My Active Orders 06/01/20 10:01 EKG Documentation Completion [RC] STAT Blood Culture x2 Reflex Set [OM.PC] Stat 06/01/20 10:04 RT Aerosol Therapy [RC] ASDIRECTED Chest 1V Frontal [CR] Stat 06/01/20 10:25 CULTURE BLOOD [BC] Stat 06/01/20 10:32 CULTURE BLOOD [BC] Stat 06/01/20 13:09 Isolation [COMM] Routine 06/01/20 14:13 Oseltamivir [Tamiflu] 30 mg PO ONETIME ONE - Assessment/Plan Last 24 Hours: My Active Orders 06/01/20 10:01 EKG Documentation Completion [RC] STAT Blood Culture x2 Reflex Set [OM.PC] Stat 06/01/20 10:04 RT Aerosol Therapy [RC] ASDIRECTED Chest 1V Frontal [CR] Stat 06/01/20 10:25 CULTURE BLOOD [BC] Stat 06/01/20 10:32 CULTURE BLOOD [BC] Stat 06/01/20 13:09 Isolation [COMM] Routine 06/01/20 14:13 Oseltamivir [Tamiflu] 30 mg PO ONETIME ONE
[2020-06-01] MEDS ORDERED: Albuterol/Ipratropium 3.0-0.5 MG/3 ML Neb Soln NEB ONE ×2 (10:04→14:28)
[2020-06-01] MEDS ORDERED: LORazepam 2 MG/ML SDV IVPUSH ONE (10:24)
[2020-06-01] MEDS ORDERED: Morphine 2 MG/ML SYRINGE IVPUSH ONE (10:24)
[2020-06-01] MEDS ORDERED: Oseltamivir 30 MG Cap PO ONE (14:13)
[2020-06-01] MEDS ORDERED: Bisacodyl 10 MG Supp RECTAL PRN (15:04)
[2020-06-01] MEDS ORDERED: Magnesium Hydroxide 400 MG/5 ML Susp 30 ML Cup PO PRN (15:04)
[2020-06-01] MEDS ORDERED: BRIMONIDINE TARTRATE EYEBOTH PRN (15:04)
--- NOTE | 2020-06-01 15:04 | PCM.HP.2 ---
H&P History of Present Illness - General Date of Service: 06/01/20 Admit Problem/Dx: Patient is from [facility] with reduced alertness and cough. Source of Information: EMS Notes Reviewed, Old Records History Limitations: Reports: Other (Dementia) - History of Present Illness Initial Comments - Free Text/Narative: The patient is an 80-year-old gentleman who had presented to the emergency department from [facility] with decreased alertness and a cough. The patient has advanced Lewy body dementia and he has been unable to participate in any meaningful way with his history and physical. The patient is essentially nonverbal. Information has been obtained from the charting as well as previous medical records. Patient's family is not available. Apparently over the past 24 to 36 hours the patient became less responsive. He has a cough. The patient does have a history of congestive heart failure and he is currently anticoagulated chronically with warfarin with a therapeutic INR. The patient also has multiple medications for constipation. Patient also has a pacemaker in place. Onset of Symptoms: Reports: Unknown/Unsure Duration of Symptoms: Reports: Day(s): - Related Data Allergies/Adverse Reactions: Allergies Allergy/AdvReac Type Severity Reaction Status Date / Time procaine Allergy Unknown unknown Verified 06/01/20 09:42 Home Medications: Home Meds Furosemide 60 mg PO DAILY 04/07/18 [History] Levothyroxine [Synthroid] 50 mcg PO ACBREAKFAST 04/07/18 [History] allopurinoL [Zyloprim] 50 mg PO DAILY 04/07/18 [History] Warfarin Sodium [Jantoven] 7.5 mg PO SUTUTHSA 04/10/18 [History] Acetaminophen [Pain Reliever] 650 mg PO DAILY PRN 06/02/18 [History] Sennosides/Docusate Sodium [Senna Plus Tablet] 1 tab PO DAILY PRN 06/02/18 [History] Warfarin Sodium [Coumadin] 10 mg PO MOWEFR 06/02/18 [History] Brimonidine Tartrate [Lumify] 1 drop EYEBOTH DAILY PRN 06/01/20 [History] Magnesium Hydroxide [Milk of Magnesia] 30 ml PO TID PRN 06/01/20 [History] Metoprolol Tartrate [Lopressor] 25 mg PO DAILY 06/01/20 [History] Propylene Glycol/PEG 400/Pf [Systane 0.3-0.4% Eye Drop] 1 drop EYEBOTH BID PRN 06/01/20 [History] Sennosides [Senna] 8.6 mg PO BID 06/01/20 [History] Trolamine Salicylate/Aloe Vera [Aspercreme 10%] 1 applic TOP BID 06/01/20 [History] bisacodyL [Bisacodyl] 10 mg RECTAL DAILY PRN 06/01/20 [History] polyethylene glycoL 3350 [MiraLAX] 17 gm PO DAILY 06/01/20 [History] Past Medical History HEENT History: Reports: Impaired Vision Other HEENT History: wears glasses Cardiovascular History: Reports: Heart Failure, Pacemaker Respiratory History: Reports: Asthma Gastrointestinal History: Reports: Colon Polyp Other Gastrointestinal History: bile duct cancer, 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 new bile duct is made out of intestinal tract Genitourinary History: Reports: Other (See Below) Other Genitourinary History: lately patient has had some incontinence issues Musculoskeletal History: Reports: Amputation (Fingertip), Gout Neurological History: Reports: Other (See Below) Other Neuro History: lewie body dementia, aggressive behaviors Psychiatric History: Reports: Dementia, Other (See Below) Other Psychiatric History: agressive behaviors with dementia Endocrine/Metabolic History: Reports: Hypothyroidism Hematologic History: Reports: Anticoagulation Therapy Other Oncologic History: bile duct 10 years ago Dermatologic History: Reports: Other (See Below) Other Dermatologic History: discolored lower legs bilaterally, has had this for a long time - Past Surgical History HEENT Surgical History: Reports: Other (See Below) Other HEENT Surgeries/Procedures: teeth pulled Social & Family History - Family History Family Medical History: Noncontributory - Tobacco Use Tobacco Use Status *Q: Unknown Ever Used Tobacco Second Hand Smoke Exposure: No - Caffeine Use Caffeine Use: Reports: Coffee - Recreational Drug Use Recreational Drug Use: No - Living Situation & Occupation Living situation: Reports: , Extended Care Facility Occupation: Retired H&P Review of Systems - Review of Systems: Review Of Systems: Unable To Obtain Reason Not Obtained: Patient not verbal or oriented to person place or time. Exam - Exam Exam: See Below - Vital Signs Vital Signs: Last Vital Signs Temp 37.2 C 06/01/20 09:38 Pulse 68 06/01/20 09:38 Resp 34 H 06/01/20 09:38 BP 126/82 06/01/20 09:38 Pulse Ox 93 L 06/01/20 14:36 Weight: 81.647 kg - Exam Quality Assessment: Other (Incontinent ). No: Supplemental Oxygen General: No: Alert, Oriented (Not oriented to person place or time) HEENT: EACs Clear, EOMI, Nares Patent. No: Conjunctiva Clear (Inflamed), Mucosa Moist & [place] (Dry) Neck: Supple, Trachea Midline Lungs: Clear to Auscultation, Normal Respiratory Effort, Other (Pacemaker left upper chest wall) Cardiovascular: Regular Rate, Regular Rhythm GI/Abdominal Exam: Normal Bowel Sounds, Soft, Non-Tender, No Distention (Male) Exam: Deferred Rectal (Males) Exam: Deferred Back Exam: Normal Inspection, Full Range of Motion Extremities: Normal Inspection, No Pedal Edema Skin: Warm, Dry, Intact, Other (Hemosiderin deposits lower extremities) Neurological: No: Normal Speech Neuro Extensive - Mental Status: No: Alert, Oriented x3 Psychiatric: Alert - Patient Data Lab Results Last 24 hrs: Laboratory Results - last 24 hr 06/01/20 06/01/20 06/01/20 Range/Units 10:00 10:00 10:00 WBC 9.28 H (4.23-9.07) K/mm3 RBC 4.61 L (4.63-6.08) M/mm3 Hgb 14.2 (13.7-17.5) gm/dl Hct 43.6 (40.1-51.0) % MCV 94.6 H D (79.0-92.2) fl MCH 30.8 (25.7-32.2) pg MCHC 32.6 (32.2-35.5) g/dl RDW Std Deviation 47.9 H (35.1-43.9) fL Plt Count 174 (163-337) K/mm3 MPV 8.7 L (9.4-12.3) fl Neutrophils % (Manual) 77 H (40-60) % Band Neutrophils % 2 (0-10) % Lymphocytes % (Manual) 17 L (20-40) % Atypical Lymphs % 0 % Monocytes % (Manual) 3 (2-10) % Eosinophils % (Manual) 1 (0.8-7.0) % Basophils % (Manual) 0 L (0.2-1.2) Platelet Estimate Adequate RBC Morph Comment Normal PT 27.4 H (9.7-11.7) SECONDS INR 2.61 APTT 38 H (22-31) SECONDS D-Dimer, Quantitative (0.19-0.50) mg/L Sodium 141 (136-145) mEq/L Potassium 4.1 (3.5-5.1) mEq/L Chloride 103 (98-107) mEq/L Carbon Dioxide 30 (21-32) mEq/L Anion Gap 12.1 (5-15) BUN 19 H (7-18) mg/dL Creatinine 1.1 (0.7-1.3) mg/dL Est Cr Clr Drug Dosing 51.78 mL/min Estimated GFR (MDRD) > 60 (>60) mL/min BUN/Creatinine Ratio 17.3 (14-18) Glucose 104 (83-115) mg/dL Lactic Acid (0.4-2.0) mmol/L Calcium 8.8 (8.5-10.1) mg/dL Ferritin (26-388) ng/ml Total Bilirubin 2.2 H (0.2-1.0) mg/dL AST 32 (15-37) U/L ALT 38 (16-63) U/L Alkaline Phosphatase 156 H (46-116) U/L Lactate Dehydrogenase 162 (85-227) U/L Troponin I 0.021 (0.00-0.056) ng/mL C-Reactive Protein 4.8 H* (<1.0) mg/dL Total Protein 7.3 (6.4-8.2) g/dl Albumin 3.3 L (3.4-5.0) g/dl Globulin 4.0 gm/dL Albumin/Globulin Ratio 0.8 L (1-2) Urine Color (Yellow) Urine Appearance (Clear) Urine pH (5.0-8.0) Ur Specific [place] (1.005-1.030) Urine Protein (Negative) Urine Glucose (UA) (Negative) Urine Ketones (Negative) Urine Occult Blood (Negative) Urine Nitrite (Negative) Urine Bilirubin (Negative) Urine Urobilinogen (0.2-1.0) Ur Leukocyte Esterase (Negative) Urine RBC (0-5) /hpf Urine WBC (0-5) /hpf Ur Squamous Epith Cells (0-5) /hpf Urine Bacteria (FEW) /hpf Urine Mucus (FEW) /hpf SARS-CoV-2 RNA (SHONDA) (NEGATIVE) 06/01/20 06/01/20 06/01/20 Range/Units 10:00 10:00 10:00 WBC (4.23-9.07) K/mm3 RBC (4.63-6.08) M/mm3 Hgb (13.7-17.5) gm/dl Hct (40.1-51.0) % MCV (79.0-92.2) fl MCH (25.7-32.2) pg MCHC (32.2-35.5) g/dl RDW Std Deviation (35.1-43.9) fL Plt Count (163-337) K/mm3 MPV (9.4-12.3) fl Neutrophils % (Manual) (40-60) % Band Neutrophils % (0-10) % Lymphocytes % (Manual) (20-40) % Atypical Lymphs % % Monocytes % (Manual) (2-10) % Eosinophils % (Manual) (0.8-7.0) % Basophils % (Manual) (0.2-1.2) Platelet Estimate RBC Morph Comment PT (9.7-11.7) SECONDS INR APTT (22-31) SECONDS D-Dimer, Quantitative 0.26 (0.19-0.50) mg/L Sodium (136-145) mEq/L Potassium (3.5-5.1) mEq/L Chloride (98-107) mEq/L Carbon Dioxide (21-32) mEq/L Anion Gap (5-15) BUN (7-18) mg/dL Creatinine (0.7-1.3) mg/dL Est Cr Clr Drug Dosing mL/min Estimated GFR (MDRD) (>60) mL/min BUN/Creatinine Ratio (14-18) Glucose (83-115) mg/dL Lactic Acid 0.8 (0.4-2.0) mmol/L Calcium (8.5-10.1) mg/dL Ferritin 650 H (26-388) ng/ml Total Bilirubin (0.2-1.0) mg/dL AST (15-37) U/L ALT (16-63) U/L Alkaline Phosphatase (46-116) U/L Lactate Dehydrogenase (85-227) U/L Troponin I (0.00-0.056) ng/mL C-Reactive Protein (<1.0) mg/dL Total Protein (6.4-8.2) g/dl Albumin (3.4-5.0) g/dl Globulin gm/dL Albumin/Globulin Ratio (1-2) Urine Color (Yellow) Urine Appearance (Clear) Urine pH (5.0-8.0) Ur Specific [place] (1.005-1.030) Urine Protein (Negative) Urine Glucose (UA) (Negative) Urine Ketones (Negative) Urine Occult Blood (Negative) Urine Nitrite (Negative) Urine Bilirubin (Negative) Urine Urobilinogen (0.2-1.0) Ur Leukocyte Esterase (Negative) Urine RBC (0-5) /hpf Urine WBC (0-5) /hpf Ur Squamous Epith Cells (0-5) /hpf Urine Bacteria (FEW) /hpf Urine Mucus (FEW) /hpf SARS-CoV-2 RNA (SHONDA) (NEGATIVE) 06/01/20 06/01/20 Range/Units 11:00 11:35 WBC (4.23-9.07) K/mm3 RBC (4.63-6.08) M/mm3 Hgb (13.7-17.5) gm/dl Hct (40.1-51.0) % MCV (79.0-92.2) fl MCH (25.7-32.2) pg MCHC (32.2-35.5) g/dl RDW Std Deviation (35.1-43.9) fL Plt Count (163-337) K/mm3 MPV (9.4-12.3) fl Neutrophils % (Manual) (40-60) % Band Neutrophils % (0-10) % Lymphocytes % (Manual) (20-40) % Atypical Lymphs % % Monocytes % (Manual) (2-10) % Eosinophils % (Manual) (0.8-7.0) % Basophils % (Manual) (0.2-1.2) Platelet Estimate RBC Morph Comment PT (9.7-11.7) SECONDS INR APTT (22-31) SECONDS D-Dimer, Quantitative (0.19-0.50) mg/L Sodium (136-145) mEq/L Potassium (3.5-5.1) mEq/L Chloride (98-107) mEq/L Carbon Dioxide (21-32) mEq/L Anion Gap (5-15) BUN (7-18) mg/dL Creatinine (0.7-1.3) mg/dL Est Cr Clr Drug Dosing mL/min Estimated GFR (MDRD) (>60) mL/min BUN/Creatinine Ratio (14-18) Glucose (83-115) mg/dL Lactic Acid (0.4-2.0) mmol/L Calcium (8.5-10.1) mg/dL Ferritin (26-388) ng/ml Total Bilirubin (0.2-1.0) mg/dL AST (15-37) U/L ALT (16-63) U/L Alkaline Phosphatase (46-116) U/L Lactate Dehydrogenase (85-227) U/L Troponin I (0.00-0.056) ng/mL C-Reactive Protein (<1.0) mg/dL Total Protein (6.4-8.2) g/dl Albumin (3.4-5.0) g/dl Globulin gm/dL Albumin/Globulin Ratio (1-2) Urine Color Dark yellow (Yellow) Urine Appearance Clear (Clear) Urine pH 7.0 (5.0-8.0) Ur Specific [place] 1.025 (1.005-1.030) Urine Protein 1+ H (Negative) Urine Glucose (UA) Negative (Negative) Urine Ketones Negative (Negative) Urine Occult Blood Negative (Negative) Urine Nitrite Negative (Negative) Urine Bilirubin Negative (Negative) Urine Urobilinogen 2.0 H (0.2-1.0) Ur Leukocyte Esterase Negative (Negative) Urine RBC 0-5 (0-5) /hpf Urine WBC Not seen (0-5) /hpf Ur Squamous Epith Cells 0-5 (0-5) /hpf Urine Bacteria Rare (FEW) /hpf Urine Mucus Few (FEW) /hpf SARS-CoV-2 RNA (SHONDA) Negative (NEGATIVE) Result Diagrams: 06/01/20 10:00 06/01/20 10:00 [place] Results Last 24 hrs: Microbiology 06/01/20 13:05 Influenza Type A Antigen Screen - Final Nasal, Unspecified NEGATIVE INFLUENZA A VIRUS AG REFERENCE RANGE: NEGATIVE Influenza Type B Antigen Screen - Final Positive Influenza B Ag Sepsis Event Note - Evaluation Sepsis Screening Result: Possible Sepsis Risk - Focused Exam Vital Signs: Vital Signs Temp Pulse Resp BP Pulse Ox Pulse Ox 06/01/20 14:36 93 L 06/01/20 10:21 91 L 06/01/20 09:38 37.2 C 68 34 H 126/82 94 L - Problem List (1) Influenza B SNOMED Code(s): 63270364 ICD Code: J10.1 - FLU DUE TO OTH IDENT INFLUENZA VIRUS W OTH RESP MANIFEST Status: Acute Priority: High Current Visit: Yes (2) Pacemaker SNOMED Code(s): 303561900 ICD Code: Z95.0 - PRESENCE OF CARDIAC PACEMAKER Status: Chronic Priority: Medium Current Visit: Yes (3) Chronic congestive heart failure SNOMED Code(s): 64800049 ICD Code: I50.9 - HEART FAILURE, UNSPECIFIED Status: Chronic Priority: Medium Current Visit: Yes Qualifiers: Heart failure type: diastolic Qualified Code(s): I50.32 - Chronic diastolic (congestive) heart failure (4) Lewy body dementia SNOMED Code(s): 881022937 ICD Code: G31.83 - DEMENTIA WITH LEWY BODIES; F02.80 - DEMENTIA IN OTH DISEASES CLASSD ELSWHR W/O BEHAVRL DISTURB Status: Chronic Priority: Medium Current Visit: Yes Qualifiers: Dementia behavioral disturbance: without behavioral disturbance Qualified Code(s): G31.83 - Dementia with Lewy bodies; F02.80 - Dementia in other diseases classified elsewhere without behavioral disturbance Problem List Initiated/Reviewed/Updated: Yes Orders Last 24hrs: Active Orders 24 hr Category Date Time Status EKG Documentation Completion [RC] STAT Care 06/01/20 10:01 Active RT Aerosol Therapy [RC] ASDIRECTED Care 06/01/20 10:04 Active RT Aerosol Therapy [RC] ASDIRECTED Care 06/01/20 14:30 Active Chest 1V Frontal [CR] Stat Exams 06/01/20 10:04 Taken CULTURE BLOOD [BC] Stat Lab 06/01/20 10:25 Received CULTURE BLOOD [BC] Stat Lab 06/01/20 10:32 Received Blood Culture x2 Reflex Set [OM.PC] Stat Oth 06/01/20 10:01 Ordered Isolation [COMM] Routine Oth 06/01/20 13:09 Ordered Assessment/Plan Comment:: The patient is an 80-year-old gentleman who has been admitted as an inpatient to acute hospitalization. The patient does have laboratory proven influenza B. I started the patient on Tamiflu 30 mg p.o. twice daily to see if this helps with his symptomology. The patient also is dry and he will be kept on IV fluids consisting of normal saline at 75 mL/h. His fluids status will be monitored very closely in case of fluid overload. He is currently taking Lasix as his h ome medication. The patient also has severe dementia and as a result of this formation from the patient is scarce. Last time the patient was in the hospital was in 2018. I reviewed the patient's medications from home and I have restarted him on these medications. The patient has also been taking Coumadin currently has a therapeutic INR and the patient will not need DVT prophylaxis. The patient appears to be bedridden however I am concerned that he is a fall risk and therefore will not have mechanical SCDs. The patient will likely need to have a soft mechanical diet and I have ordered a speech eval to help determine if the patient does have any issues with aspiration. Physical therapy and occupational therapy have also been ordered for the patient. He should be appropriate for transfer back to his [facility] in 2 to 3 days. - Mortality Measure Prognosis:: Poor
[2020-06-01] MEDS ORDERED: Ketorolac 30 MG/ML SDV IM PRN (15:11)
[2020-06-01] MEDS ORDERED: Ondansetron 4 MG/2 ML SDV IV PRN (15:11)
[2020-06-01] MEDS ORDERED: Acetaminophen 650 MG Supp RECTAL PRN (15:11)
[2020-06-01] MEDS ORDERED: Carboxymethylcellulose Sodium 1% Ophth Gel 15 ML Bottle EYEBOTH PRN (15:32)
[2020-06-01] MEDS: Sodium Chloride 0.9% 1,000 ML IV SCH (16:39)
[2020-06-01] MEDS: Warfarin 7.5 MG Tab PO SCH (18:17)
[2020-06-01] MEDS: Oseltamivir 30 MG Cap PO SCH (20:13)
[2020-06-01] MEDS: Trolamine Salicylate/Aloe Vera 10% Crm 85 GM Tube TOP SCH (21:46)
[2020-06-02] MEDS: Sodium Chloride 0.9% 1,000 ML IV SCH ×2 (05:32→18:47)
[2020-06-02] MEDS: Levothyroxine 50 MCG Tab PO SCH (05:33)
[2020-06-02] MEDS ORDERED: Magnesium Sulfate/Water 2 GM/50 ML BAG IV ONE (08:04)
[2020-06-02] MEDS: Allopurinol 100 MG Tab PO SCH (08:30)
[2020-06-02] MEDS: Metoprolol Tartrate 25 MG Tab PO SCH (08:30)
[2020-06-02] MEDS: Furosemide 20 MG Tab PO SCH (08:31)
[2020-06-02] MEDS: Oseltamivir 30 MG Cap PO SCH ×2 (08:33→20:21)
[2020-06-02] MEDS: Albuterol/Ipratropium 3.0-0.5 MG/3 ML Neb Soln NEB PRN ×2 (09:12→17:12)
[2020-06-02] MEDS: Trolamine Salicylate/Aloe Vera 10% Crm 85 GM Tube TOP SCH ×2 (09:22→20:21)
--- NOTE | 2020-06-02 13:03 | PCM.PN ---
<AnupRaven M - Last Filed: 06/02/20 13:15> - General Info Date of Service: 06/02/20 Admission Dx/Problem (Free Text): Patient is from alf with reduced alertness and cough. Subjective Update: More alert this afternoon. Eating and drinking very well. at the bedside. Functional Status: Reports: Pain Controlled, Tolerating Diet, Urinating (Incontinent). Denies: Ambulating - Review of Systems General: Reports: Weakness, Fatigue HEENT: Reports: No Symptoms Pulmonary: Reports: Cough. Denies: Sputum Cardiovascular: Reports: No Symptoms Gastrointestinal: Reports: No Symptoms Genitourinary: Reports: Incontinence Musculoskeletal: Reports: No Symptoms Skin: Reports: No Symptoms Neurological: Reports: Other (Patient is nonverbal due to Lewy body dementia) Psychiatric: Reports: Other (Lewy body dementia) - Patient Data Vitals - Most Recent: Last Vital Signs Temp 98.1 F 06/02/20 11:56 Pulse 58 L 06/02/20 11:56 Resp 22 H 06/02/20 11:56 BP 108/57 L 06/02/20 11:56 Pulse Ox 98 06/02/20 11:56 Weight - Most Recent: 76.113 kg I&O - Last 24 Hours: Intake & Output 06/01/20 06/02/20 06/02/20 22:59 06:59 14:59 Intake Total 800 1050 240 Balance 800 1050 240 Lab Results Last 24 Hours: Laboratory Results - last 24 hr 06/01/20 06/02/20 06/02/20 Range/Units 16:10 06:00 06:00 WBC 7.15 (4.23-9.07) K/mm3 RBC 4.18 L (4.63-6.08) M/mm3 Hgb 12.8 L (13.7-17.5) gm/dl Hct 40.1 (40.1-51.0) % MCV 95.9 H (79.0-92.2) fl MCH 30.6 (25.7-32.2) pg MCHC 31.9 L (32.2-35.5) g/dl RDW Std Deviation 49.7 H (35.1-43.9) fL Plt Count 160 L (163-337) K/mm3 MPV 9.1 L (9.4-12.3) fl Neut % (Auto) 71.4 H (34.0-67.9) % Lymph % (Auto) 15.1 L (21.8-53.1) % Trinity % (Auto) 10.6 (5.3-12.2) % Eos % (Auto) 2.7 (0.8-7.0) Baso % (Auto) 0.1 (0.1-1.2) % Neut # (Auto) 5.10 (1.78-5.38) K/mm3 Lymph # (Auto) 1.08 L (1.32-3.57) K/mm3 Trinity # (Auto) 0.76 (0.30-0.82) K/mm3 Eos # (Auto) 0.19 (0.04-0.54) K/mm3 Baso # (Auto) 0.01 (0.01-0.08) K/mm3 PT 25.6 H (9.7-11.7) SECONDS INR 2.43 Phosphorus (2.6-4.7) mg/dL Magnesium (1.8-2.4) mg/dl MRSA (PCR) Negative 06/02/20 Range/Units 06:00 WBC (4.23-9.07) K/mm3 RBC (4.63-6.08) M/mm3 Hgb (13.7-17.5) gm/dl Hct (40.1-51.0) % MCV (79.0-92.2) fl MCH (25.7-32.2) pg MCHC (32.2-35.5) g/dl RDW Std Deviation (35.1-43.9) fL Plt Count (163-337) K/mm3 MPV (9.4-12.3) fl Neut % (Auto) (34.0-67.9) % Lymph % (Auto) (21.8-53.1) % Trinity % (Auto) (5.3-12.2) % Eos % (Auto) (0.8-7.0) Baso % (Auto) (0.1-1.2) % Neut # (Auto) (1.78-5.38) K/mm3 Lymph # (Auto) (1.32-3.57) K/mm3 Trinity # (Auto) (0.30-0.82) K/mm3 Eos # (Auto) (0.04-0.54) K/mm3 Baso # (Auto) (0.01-0.08) K/mm3 PT (9.7-11.7) SECONDS INR Phosphorus 2.9 (2.6-4.7) mg/dL Magnesium 1.7 L (1.8-2.4) mg/dl MRSA (PCR) [facility] Results Last 24 Hours: Microbiology 06/01/20 10:32 Aerobic Blood Culture - Preliminary Blood - Venous - Lab Draw NO GROWTH AFTER 1 DAY Anaerobic Blood Culture - Preliminary NO GROWTH AFTER 1 DAY 06/01/20 10:25 Aerobic Blood Culture - Preliminary Blood - Venous NO GROWTH AFTER 1 DAY Anaerobic Blood Culture - Preliminary NO GROWTH AFTER 1 DAY 06/01/20 13:05 Influenza Type A Antigen Screen - Final Nasal, Unspecified NEGATIVE INFLUENZA A VIRUS AG REFERENCE RANGE: NEGATIVE Influenza Type B Antigen Screen - Final Positive Influenza B Ag Med Orders - Current: Current Medications Acetaminophen (Tylenol) 650 mg RECTAL Q4H PRN PRN Reason: Pain (mild 1-3) Albuterol/Ipratropium (Duoneb 3.0-0.5 Mg/3 Ml) 3 ml NEB Q4H PRN PRN Reason: Shortness Of Breath/wheezing Last Admin: 06/02/20 09:12 Dose: 3 ml Documented by: Allopurinol (Zyloprim) 50 mg PO DAILY [facility] Last Admin: 06/02/20 08:30 Dose: 50 mg Documented by: Artificial Tears (Refresh Liquigel 1%) 0 ml EYEBOTH BID PRN PRN Reason: Dry Eyes Bisacodyl (Dulcolax) 10 mg RECTAL DAILY PRN PRN Reason: Constipation Furosemide (Lasix) 60 mg PO DAILY [facility] Last Admin: 06/02/20 08:31 Dose: 60 mg Documented by: Sodium Chloride (Normal Saline) 1,000 mls @ 75 mls/hr IV ASDIRECTED [facility] Last Admin: 06/02/20 05:32 Dose: 75 mls/hr Documented by: Ketorolac Tromethamine (Toradol) 30 mg IM Q6H PRN PRN Reason: Pain (moderate 4-6) Levothyroxine Sodium (Synthroid) 50 mcg PO ACBREAKFAST [facility] Last Admin: 06/02/20 05:33 Dose: 50 mcg Documented by: Magnesium Hydroxide (Milk Of Magnesia) 30 ml PO TID PRN PRN Reason: Constipation Metoprolol Tartrate (Lopressor) 25 mg PO DAILY [facility] Last Admin: 06/02/20 08:30 Dose: Not Given Documented by: Ondansetron HCl (Zofran) 4 mg IV Q6H PRN PRN Reason: Nausea/Vomiting Oseltamivir Phosphate (Tamiflu) 30 mg PO BID [facility] Last Admin: 06/02/20 08:33 Dose: 30 mg Documented by: Trolamine Salicylate (Aspercreme 10%) 0 gm TOP BID [facility] Last Admin: 06/02/20 09:22 Dose: Not Given Documented by: Warfarin Sodium (Coumadin) 10 mg PO MoWeFr@1800 [facility] Warfarin Sodium (Coumadin) 7.5 mg PO SuTuThSa@1800 [facility] Last Admin: 06/01/20 18:17 Dose: 7.5 mg Documented by: Discontinued Medications Albuterol/Ipratropium (Duoneb 3.0-0.5 Mg/3 Ml) 3 ml NEB ONETIME ONE Stop: 06/01/20 10:05 Last Admin: 06/01/20 10:20 Dose: 3 ml Documented by: Albuterol/Ipratropium (Duoneb 3.0-0.5 Mg/3 Ml) 3 ml NEB ONETIME ONE Stop: 06/01/20 14:29 Last Admin: 06/01/20 14:36 Dose: 3 ml Documented by: Magnesium Sulfate (Magnesium Sulfate In Water Premix) 2 gm in 50 mls @ 25 mls/hr IV ONETIME ONE Stop: 06/02/20 10:03 Last Admin: 06/02/20 09:51 Dose: 25 mls/hr Documented by: Lorazepam (Ativan) 0.5 mg IVPUSH ONETIME ONE Stop: 06/01/20 10:25 Last Admin: 06/01/20 10:48 Dose: 0.5 mg Documented by: Morphine Sulfate (Morphine) 1 mg IVPUSH ONETIME ONE Stop: 06/01/20 10:25 Last Admin: 06/01/20 10:48 Dose: 1 mg Documented by: Non-Formulary Medication (Brimonidine Tartrate [Lumify]) 1 drop EYEBOTH DAILY PRN PRN Reason: redness Oseltamivir Phosphate (Tamiflu) 30 mg PO ONETIME ONE Stop: 06/01/20 14:14 Last Admin: 06/01/20 14:50 Dose: 30 mg Documented by: - Exam Quality Assessment: Supplemental Oxygen, DVT Prophylaxis (On Coumadin) General: Alert, Mild Distress, Other (Patient is nonverbal) HEENT: Pupils Equal, Pupils Reactive, Mucous Membr. Moist/Strawn Neck: Supple, Trachea Midline. No: Lymphadenopathy Lungs: Decreased Breath Sounds, Rales, Rhonchi (Left posterior) Cardiovascular: Regular Rate GI/Abdominal Exam: Normal Bowel Sounds, Soft, Non-Tender, No Distention (Male) Exam: Deferred Back Exam: Normal Inspection, Full Range of Motion Extremities: Normal Inspection, Non-Tender, No Pedal Edema, Normal Capillary Refill, Other (Contractures noted to hands) Peripheral Pulses: 2+: Radial (L), Radial (R), Dorsalis Pedis (L), Dorsalis Pedis (R) Skin: Warm, Dry, Intact Neurological: No New Focal Deficit Psy/Mental Status: Alert, Normal Affect, Normal Mood Sepsis Event Note - Evaluation Sepsis Screening Result: No Definite Risk - Focused Exam Vital Signs: Vital Signs Temp Pulse Pulse Resp BP Pulse Ox Pulse Ox 06/02/20 11:56 98.1 F 58 L 22 H 108/57 L 98 06/02/20 09:14 94 L 06/02/20 08:30 59 L 99/47 L 06/02/20 08:23 98.2 F 61 24 H 99/47 L 100 06/02/20 04:04 97.5 F 24 H 107/59 L 06/02/20 04:00 60 92 L - Problem List & Annotations (1) Influenza B SNOMED Code(s): 50120090 Code(s): J10.1 - FLU DUE TO OTH IDENT INFLUENZA VIRUS W OTH RESP MANIFEST Status: Acute Priority: High Current Visit: Yes (2) Chronic congestive heart failure SNOMED Code(s): 02030002 Code(s): I50.9 - HEART FAILURE, UNSPECIFIED Status: Chronic Priority: Medium Current Visit: Yes Qualifiers: Heart failure type: diastolic Qualified Code(s): I50.32 - Chronic diastolic (congestive) heart failure (3) Lewy body dementia SNOMED Code(s): 735203025 Code(s): G31.83 - DEMENTIA WITH LEWY BODIES; F02.80 - DEMENTIA IN OTH D ISEASES CLASSD ELSWHR W/O BEHAVRL DISTURB Status: Chronic Priority: Medium Current Visit: Yes Qualifiers: Dementia behavioral disturbance: without behavioral disturbance Qualified Code(s): G31.83 - Dementia with Lewy bodies; F02.80 - Dementia in other diseases classified elsewhere without behavioral disturbance (4) Pacemaker SNOMED Code(s): 255210629 Code(s): Z95.0 - PRESENCE OF CARDIAC PACEMAKER Status: Chronic Priority: Medium Current Visit: Yes - Problem List Review Problem List Initiated/Reviewed/Updated: Yes - Assessment Assessment:: 06/02/20 * positive for influenza B. Currently receiving tamiflu for this * O2 titrated down * more alert this afternoon, eating and drinking well per nursing staff * Mg 1.7 today * VSS no fever PLAN: * Continue Tamiflu * Continue IV fluids * Exam 2 g IV today * Continue nebulizer treatments * Labs tomorrow Tentative plan for patient to return to [facility] tomorrow - Plan Plan:: The patient is an 80-year-old gentleman who has been admitted as an inpatient to acute hospitalization. The patient does have laboratory proven influenza B. I started the patient on Tamiflu 30 mg p.o. twice daily to see if this helps with his symptomology. The patient also is dry and he will be kept on IV fluids consisting of normal saline at 75 mL/h. His fluids status will be monitored very closely in case of fluid overload. He is currently taking Lasix as his home medication. The patient also has severe dementia and as a result of this formation from the patient is scarce. Last time the patient was in the hospital was in 2018. I reviewed the patient's medications from home and I have restarted him on these medications. The patient has also been taking Coumadin currently has a therapeutic INR and the patient will not need DVT prophylaxis. The patient appears to be bedridden however I am concerned that he is a fall risk and therefore will not have mechanical SCDs. The patient will likely need to have a soft mechanical diet and I have ordered a speech eval to help determine if the patient does have any issues with aspiration. Physical therapy and occupational therapy have also been ordered for the patient. He should be appropriate for transfer back to his alf in 2 to 3 days. Influenza B -albuterol nebulizer -tamiflu -NS IV fluids for rehydration Pacemaker; Chronic congestive heart failure -on lasix, metoprolol and coumadin Lewy body dementia -chronic progression PROPHYLAXIS: DVT: Coumadin CODE STATUS: DNR\DNI DISPOSITION: Patient will remain admitted for rehydration, nebulizer treatment, and oxygen supplementation. Plan to discharge back to [facility] tomorrow. <Basilio Melendez - Last Filed: 06/02/20 17:21> - Patient Data Vitals - Most Recent: Last Vital Signs Temp 37.1 C 06/02/20 16:49 Pulse 60 06/02/20 16:49 Resp 30 H 06/02/20 16:49 BP 113/60 06/02/20 16:49 Pulse Ox 96 06/02/20 17:14 I&O - Last 24 Hours: Intake & Output 06/02/20 06/02/20 06/02/20 06:59 14:59 22:59 Intake Total 1050 240 0 Balance 1050 240 0 Lab Results Last 24 Hours: Laboratory Results - last 24 hr 06/01/20 06/02/20 06/02/20 Range/Units 16:10 06:00 06:00 WBC 7.15 (4.23-9.07) K/mm3 RBC 4.18 L (4.63-6.08) M/mm3 Hgb 12.8 L (13.7-17.5) gm/dl Hct 40.1 (40.1-51.0) % MCV 95.9 H (79.0-92.2) fl MCH 30.6 (25.7-32.2) pg MCHC 31.9 L (32.2-35.5) g/dl RDW Std Deviation 49.7 H (35.1-43.9) fL Plt Count 160 L (163-337) K/mm3 MPV 9.1 L (9.4-12.3) fl Neut % (Auto) 71.4 H (34.0-67.9) % Lymph % (Auto) 15.1 L (21.8-53.1) % Trinity % (Auto) 10.6 (5.3-12.2) % Eos % (Auto) 2.7 (0.8-7.0) Baso % (Auto) 0.1 (0.1-1.2) % Neut # (Auto) 5.10 (1.78-5.38) K/mm3 Lymph # (Auto) 1.08 L (1.32-3.57) K/mm3 Trinity # (Auto) 0.76 (0.30-0.82) K/mm3 Eos # (Auto) 0.19 (0.04-0.54) K/mm3 Baso # (Auto) 0.01 (0.01-0.08) K/mm3 PT 25.6 H (9.7-11.7) SECONDS INR 2.43 Phosphorus (2.6-4.7) mg/dL Magnesium (1.8-2.4) mg/dl MRSA (PCR) Negative 06/02/20 Range/Units 06:00 WBC (4.23-9.07) K/mm3 RBC (4.63-6.08) M/mm3 Hgb (13.7-17.5) gm/dl Hct (40.1-51.0) % MCV (79.0-92.2) fl MCH (25.7-32.2) pg MCHC (32.2-35.5) g/dl RDW Std Deviation (35.1-43.9) fL Plt Count (163-337) K/mm3 MPV (9.4-12.3) fl Neut % (Auto) (34.0-67.9) % Lymph % (Auto) (21.8-53.1) % Trinity % (Auto) (5.3-12.2) % Eos % (Auto) (0.8-7.0) Baso % (Auto) (0.1-1.2) % Neut # (Auto) (1.78-5.38) K/mm3 Lymph # (Auto) (1.32-3.57) K/mm3 Trinity # (Auto) (0.30-0.82) K/mm3 Eos # (Auto) (0.04-0.54) K/mm3 Baso # (Auto) (0.01-0.08) K/mm3 PT (9.7-11.7) SECONDS INR Phosphorus 2.9 (2.6-4.7) mg/dL Magnesium 1.7 L (1.8-2.4) mg/dl MRSA (PCR) Yunior Results Last 24 Hours: Microbiology 06/01/20 10:32 Aerobic Blood Culture - Preliminary Blood - Venous - Lab Draw NO GROWTH AFTER 1 DAY Anaerobic Blood Culture - Preliminary NO GROWTH AFTER 1 DAY 06/01/20 10:25 Aerobic Blood Culture - Preliminary Blood - Venous NO GROWTH AFTER 1 DAY Anaerobic Blood Culture - Preliminary NO GROWTH AFTER 1 DAY 06/01/20 13:05 Influenza Type A Antigen Screen - Final Nasal, Unspecified NEGATIVE INFLUENZA A VIRUS AG REFERENCE RANGE: NEGATIVE Influenza Type B Antigen Screen - Final Positive Influenza B Ag Med Orders - Current: Current Medications Acetaminophen (Tylenol) 650 mg RECTAL Q4H PRN PRN Reason: Pain (mild 1-3) Albuterol/Ipratropium (Duoneb 3.0-0.5 Mg/3 Ml) 3 ml NEB Q4H PRN PRN Reason: Shortness Of Breath/wheezing Last Admin: 06/02/20 17:12 Dose: 3 ml Documented by: Allopurinol (Zyloprim) 50 mg PO DAILY [facility] Last Admin: 06/02/20 08:30 Dose: 50 mg Documented by: Artificial Tears (Refresh Liquigel 1%) 0 ml EYEBOTH BID PRN PRN Reason: Dry Eyes Bisacodyl (Dulcolax) 10 mg RECTAL DAILY PRN PRN Reason: Constipation Furosemide (Lasix) 60 mg PO DAILY [facility] Last Admin: 06/02/20 08:31 Dose: 60 mg Documented by: Sodium Chloride (Normal Saline) 1,000 mls @ 75 mls/hr IV ASDIRECTED [facility] Last Admin: 06/02/20 05:32 Dose: 75 mls/hr Documented by: Ketorolac Tromethamine (Toradol) 30 mg IM Q6H PRN PRN Reason: Pain (moderate 4-6) Levothyroxine Sodium (Synthroid) 50 mcg PO ACBREAKFAST [facility] Last Admin: 06/02/20 05:33 Dose: 50 mcg Documented by: Magnesium Hydroxide (Milk Of Magnesia) 30 ml PO TID PRN PRN Reason: Constipation Metoprolol Tartrate (Lopressor) 25 mg PO DAILY [facility] Last Admin: 06/02/20 08:30 Dose: Not Given Documented by: Ondansetron HCl (Zofran) 4 mg IV Q6H PRN PRN Reason: Nausea/Vomiting Oseltamivir Phosphate (Tamiflu) 30 mg PO BID [facility] Last Admin: 06/02/20 08:33 Dose: 30 mg Documented by: Trolamine Salicylate (Aspercreme 10%) 0 gm TOP BID [facility] Last Admin: 06/02/20 09:22 Dose: Not Given Documented by: Warfarin Sodium (Coumadin) 10 mg PO MoWeFr@1800 [facility] Warfarin Sodium (Coumadin) 7.5 mg PO SuTuThSa@1800 [facility] Last Admin: 06/01/20 18:17 Dose: 7.5 mg Documented by: Discontinued Medications Albuterol/Ipratropium (Duoneb 3.0-0.5 Mg/3 Ml) 3 ml NEB ONETIME ONE Stop: 06/01/20 10:05 Last Admin: 06/01/20 10:20 Dose: 3 ml Documented by: Albuterol/Ipratropium (Duoneb 3.0-0.5 Mg/3 Ml) 3 ml NEB ONETIME ONE Stop: 06/01/20 14:29 Last Admin: 06/01/20 14:36 Dose: 3 ml Documented by: Magnesium Sulfate (Magnesium Sulfate In Water Premix) 2 gm in 50 mls @ 25 mls/hr IV ONETIME ONE Stop: 06/02/20 10:03 Last Admin: 06/02/20 09:51 Dose: 25 mls/hr Documented by: Lorazepam (Ativan) 0.5 mg IVPUSH ONETIME ONE Stop: 06/01/20 10:25 Last Admin: 06/01/20 10:48 Dose: 0.5 mg Documented by: Morphine Sulfate (Morphine) 1 mg IVPUSH ONETIME ONE Stop: 06/01/20 10:25 Last Admin: 06/01/20 10:48 Dose: 1 mg Documented by: Non-Formulary Medication (Brimonidine Tartrate [Lumify]) 1 drop EYEBOTH DAILY PRN PRN Reason: redness Oseltamivir Phosphate (Tamiflu) 30 mg PO ONETIME ONE Stop: 06/01/20 14:14 Last Admin: 06/01/20 14:50 Dose: 30 mg Documented by: Sepsis Event Note - Focused Exam Vital Signs: Vital Signs Temp Temp Pulse Pulse Resp BP BP 06/02/20 17:14 06/02/20 16:49 37.1 C 60 30 H 113/60 06/02/20 16:00 37.1 C 62 30 H 113/60 06/02/20 14:49 06/02/20 13:00 06/02/20 11:56 36.7 C 58 L 22 H 108/57 L 06/02/20 11:00 06/02/20 09:14 06/02/20 08:30 59 L 99/47 L 06/02/20 08:23 36.8 C 61 24 H 99/47 L Pulse Ox Pulse Ox Pulse Ox 06/02/20 17:14 96 06/02/20 16:49 06/02/20 16:00 97 06/02/20 14:49 100 06/02/20 13:00 100 06/02/20 11:56 98 06/02/20 11:00 98 06/02/20 09:14 94 L 06/02/20 08:30 06/02/20 08:23 100 - Problem List & Annotations (1) Influenza B SNOMED Code(s): 91977773 Code(s): J10.1 - FLU DUE TO OTH IDENT INFLUENZA VIRUS W OTH RESP MANIFEST Status: Acute Priority: High Current Visit: Yes (2) Pacemaker SNOMED Code(s): 173305622 Code(s): Z95.0 - PRESENCE OF CARDIAC PACEMAKER Status: Chronic Priority: Medium Current Visit: Yes (3) Chronic congestive heart failure SNOMED Code(s): 83250736 Code(s): I50.9 - HEART FAILURE, UNSPECIFIED Status: Chronic Priority: Medium Current Visit: Yes Qualifiers: Heart failure type: diastolic Qualified Code(s): I50.32 - Chronic diastolic (congestive) heart failure (4) Lewy body dementia SNOMED Code(s): 701855984 Code(s): G31.83 - DEMENTIA WITH LEWY BODIES; F02.80 - DEMENTIA IN OTH DISEASES CLASSD ELSWHR W/O BEHAVRL DISTURB Status: Chronic Priority: Medium Current Visit: Yes Qualifiers: Dementia behavioral disturbance: without behavioral disturbance Qualified Code(s): G31.83 - Dementia with Lewy bodies; F02.80 - Dementia in other diseases classified elsewhere without behavioral disturbance - My Orders Last 24 Hours: My Active Orders 06/01/20 16:57 Patient Status [ADT] Routine 06/01/20 18:00 Warfarin [Coumadin] 7.5 mg PO SuTuThSa@1800 06/01/20 18:11 Pulse Oximetry Continuous Monitoring [OM.PC] Routine 06/01/20 21:00 Oseltamivir [Tamiflu] 30 mg PO BID Trolamine Salicylate/Aloe Vera [Aspercreme 10%] 0 gm TOP BID 06/02/20 06:00 Levothyroxine [Synthroid] 50 mcg PO ACBREAKFAST 06/02/20 09:00 Furosemide [Lasix] 60 mg PO DAILY Metoprolol Tartrate [Lopressor] 25 mg PO DAILY allopurinoL [Zyloprim] 50 mg PO DAILY 06/02/20 Dinner Mechanical Soft Diet [DIET] 06/02/20 18:00 Warfarin [Coumadin] 10 mg PO MoWeFr@1800 - Assessment Assessment:: I have seen and examined the patient independent of nurse practitioner Raven Hebert and I have discussed the case with her. I have reviewed and agree with the assessment and plan as outlined for this patient by her. Please see orders.
[2020-06-02] MEDS ORDERED: Warfarin 10 MG Tab PO SCH (18:00)
[2020-06-02] MEDS ORDERED: Warfarin 5 MG Tab PO SCH (18:00)
[2020-06-03] MEDS: Levothyroxine 50 MCG Tab PO SCH ×2 (05:00→09:01)
[2020-06-03] MEDS: Sodium Chloride 0.9% 1,000 ML IV SCH (06:36)
[2020-06-03] MEDS: Furosemide 20 MG Tab PO SCH (09:00)
[2020-06-03] MEDS: Allopurinol 100 MG Tab PO SCH (09:01)
[2020-06-03] MEDS: Trolamine Salicylate/Aloe Vera 10% Crm 85 GM Tube TOP SCH ×2 (09:02→20:31)
[2020-06-03] MEDS: Oseltamivir 30 MG Cap PO SCH (09:16)
[2020-06-03] MEDS: Metoprolol Tartrate 25 MG Tab PO SCH ×2 (09:16→14:05)
[2020-06-03] MEDS: Oseltamivir 6 MG/ML Susp 60 ML Bot PO SCH ×2 (09:19→20:31)
[2020-06-03] MEDS: Albuterol/Ipratropium 3.0-0.5 MG/3 ML Neb Soln NEB PRN ×3 (12:47→21:33)
[2020-06-03] MEDS ORDERED: Furosemide 20 MG/2 ML VIAL IVPUSH ONE (13:00)
--- NOTE | 2020-06-03 13:02 | PCM.PN ---
<AnupRaven M - Last Filed: 06/03/20 13:19> - General Info Date of Service: 06/03/20 Admission Dx/Problem (Free Text): Patient is from correction with reduced alertness and cough. Subjective Update: Much more alert today. Per the nursing staff he is eating and drinking very well. Voiding large amounts. Will discontinue IV fluids. Functional Status: Reports: Pain Controlled, Tolerating Diet, Urinating - Review of Systems General: Reports: No Symptoms HEENT: Reports: No Symptoms Pulmonary: Reports: Shortness of Breath (On oxygen at 2 L per nasal cannula) Cardiovascular: Reports: No Symptoms. Denies: Edema Gastrointestinal: Reports: No Symptoms Genitourinary: Reports: Incontinence Musculoskeletal: Reports: No Symptoms Skin: Reports: No Symptoms Neurological: Reports: Other (Patient is nonverbal due to Lewy body dementia) Psychiatric: Reports: No Symptoms - Patient Data Vitals - Most Recent: Last Vital Signs Temp 97.2 F 06/03/20 12:11 Pulse 61 06/03/20 12:04 Resp 34 H 06/03/20 12:04 BP 134/91 H 06/03/20 12:04 Pulse Ox 100 06/03/20 12:47 Weight - Most Recent: 77.156 kg I&O - Last 24 Hours: Intake & Output 06/02/20 06/03/20 06/03/20 22:59 06:59 14:59 Intake Total 1260 1600 420 Balance 1260 1600 420 Lab Results Last 24 Hours: Laboratory Results - last 24 hr 06/03/20 06/03/20 Range/Units 08:53 08:53 WBC 6.22 (4.23-9.07) K/mm3 RBC 4.01 L (4.63-6.08) M/mm3 Hgb 12.3 L (13.7-17.5) gm/dl Hct 38.2 L (40.1-51.0) % MCV 95.3 H (79.0-92.2) fl MCH 30.7 (25.7-32.2) pg MCHC 32.2 (32.2-35.5) g/dl RDW Std Deviation 49.5 H (35.1-43.9) fL Plt Count 157 L (163-337) K/mm3 MPV 8.8 L (9.4-12.3) fl Neut % (Auto) 71.1 H (34.0-67.9) % Lymph % (Auto) 13.7 L (21.8-53.1) % [place] % (Auto) 12.4 H (5.3-12.2) % Eos % (Auto) 2.4 (0.8-7.0) Baso % (Auto) 0.2 (0.1-1.2) % Neut # (Auto) 4.43 (1.78-5.38) K/mm3 Lymph # (Auto) 0.85 L (1.32-3.57) K/mm3 [place] # (Auto) 0.77 (0.30-0.82) K/mm3 Eos # (Auto) 0.15 (0.04-0.54) K/mm3 Baso # (Auto) 0.01 (0.01-0.08) K/mm3 Sodium 142 (136-145) mEq/L Potassium 3.6 (3.5-5.1) mEq/L Chloride 106 (98-107) mEq/L Carbon Dioxide 30 (21-32) mEq/L Anion Gap 9.6 (5-15) BUN 16 (7-18) mg/dL Creatinine 0.9 (0.7-1.3) mg/dL Est Cr Clr Drug Dosing 61.22 mL/min Estimated GFR (MDRD) > 60 (>60) mL/min BUN/Creatinine Ratio 17.8 (14-18) Glucose 91 (83-115) mg/dL Calcium 8.5 (8.5-10.1) mg/dL Magnesium 1.9 (1.8-2.4) mg/dl Total Bilirubin 1.5 H (0.2-1.0) mg/dL AST 32 (15-37) U/L ALT 33 (16-63) U/L Alkaline Phosphatase 142 H (46-116) U/L Total Protein 6.2 L (6.4-8.2) g/dl Albumin 2.6 L (3.4-5.0) g/dl Globulin 3.6 gm/dL Albumin/Globulin Ratio 0.7 L (1-2) Yunior Results Last 24 Hours: Microbiology 06/01/20 10:32 Aerobic Blood Culture - Preliminary Blood - Venous - Lab Draw NO GROWTH AFTER 2 DAYS Anaerobic Blood Culture - Preliminary NO GROWTH AFTER 2 DAYS 06/01/20 10:25 Aerobic Blood Culture - Preliminary Blood - Venous NO GROWTH AFTER 2 DAYS Anaerobic Blood Culture - Preliminary NO GROWTH AFTER 2 DAYS Med Orders - Current: Current Medications Acetaminophen (Tylenol) 650 mg RECTAL Q4H PRN PRN Reason: Pain (mild 1-3) Last Admin: 06/02/20 20:38 Dose: 650 mg Documented by: Albuterol/Ipratropium (Duoneb 3.0-0.5 Mg/3 Ml) 3 ml NEB Q4H PRN PRN Reason: Shortness Of Breath/wheezing Last Admin: 06/03/20 12:47 Dose: 3 ml Documented by: Allopurinol (Zyloprim) 50 mg PO DAILY [facility] Last Admin: 06/03/20 09:01 Dose: 50 mg Documented by: Artificial Tears (Refresh Liquigel 1%) 0 ml EYEBOTH BID PRN PRN Reason: Dry Eyes Bisacodyl (Dulcolax) 10 mg RECTAL DAILY PRN PRN Reason: Constipation Furosemide (Lasix) 60 mg PO DAILY [facility] Last Admin: 06/03/20 09:00 Dose: 60 mg Documented by: Ketorolac Tromethamine (Toradol) 30 mg IM Q6H PRN PRN Reason: Pain (moderate 4-6) Levothyroxine Sodium (Synthroid) 50 mcg PO ACBREAKFAST [facility] Last Admin: 06/03/20 09:01 Dose: 50 mcg Documented by: Magnesium Hydroxide (Milk Of Magnesia) 30 ml PO TID PRN PRN Reason: Constipation Metoprolol Tartrate (Lopressor) 25 mg PO DAILY [facility] Last Admin: 06/03/20 09:16 Dose: Not Given Documented by: Ondansetron HCl (Zofran) 4 mg IV Q6H PRN PRN Reason: Nausea/Vomiting Oseltamivir Phosphate (Tamiflu) 30 mg PO BID [facility] Last Admin: 06/03/20 09:19 Dose: 30 mg Documented by: Trolamine Salicylate (Aspercreme 10%) 0 gm TOP BID [facility] Last Admin: 06/03/20 09:02 Dose: 1 applic Documented by: Warfarin Sodium (Coumadin) 7.5 mg PO SuTuThSa@1800 [facility] Last Admin: 06/01/20 18:17 Dose: 7.5 mg Documented by: Warfarin Sodium (Coumadin) 10 mg PO MoWeFr@1800 [facility] Last Admin: 06/02/20 18:51 Dose: 10 mg Documented by: Discontinued Medications Albuterol/Ipratropium (Duoneb 3.0-0.5 Mg/3 Ml) 3 ml NEB ONETIME ONE Stop: 06/01/20 10:05 Last Admin: 06/01/20 10:20 Dose: 3 ml Documented by: Albuterol/Ipratropium (Duoneb 3.0-0.5 Mg/3 Ml) 3 ml NEB ONETIME ONE Stop: 06/01/20 14:29 Last Admin: 06/01/20 14:36 Dose: 3 ml Documented by: Furosemide (Lasix) 20 mg IVPUSH NOW ONE Stop: 06/03/20 13:01 Sodium Chloride (Normal Saline) 1,000 mls @ 75 mls/hr IV ASDIRECTED [facility] Last Admin: 06/03/20 06:36 Dose: 75 mls/hr Documented by: Magnesium Sulfate (Magnesium Sulfate In Water Premix) 2 gm in 50 mls @ 25 mls/hr IV ONETIME ONE Stop: 06/02/20 10:03 Last Admin: 06/02/20 09:51 Dose: 25 mls/hr Documented by: Lorazepam (Ativan) 0.5 mg IVPUSH ONETIME ONE Stop: 06/01/20 10:25 Last Admin: 06/01/20 10:48 Dose: 0.5 mg Documented by: Morphine Sulfate (Morphine) 1 mg IVPUSH ONETIME ONE Stop: 06/01/20 10:25 Last Admin: 06/01/20 10:48 Dose: 1 mg Documented by: Non-Formulary Medication (Brimonidine Tartrate [Lumify]) 1 drop EYEBOTH DAILY PRN PRN Reason: redness Oseltamivir Phosphate (Tamiflu) 30 mg PO ONETIME ONE Stop: 06/01/20 14:14 Last Admin: 06/01/20 14:50 Dose: 30 mg Documented by: Oseltamivir Phosphate (Tamiflu) 30 mg PO BID [facility] Last Admin: 06/03/20 09:16 Dose: Not Given Documented by: Warfarin Sodium (Coumadin) 10 mg PO MoWeFr@1800 [facility] Last Admin: 06/02/20 19:37 Dose: Not Given Documented by: - Exam Quality Assessment: Supplemental Oxygen (2 L per nasal cannula), DVT Prophylaxis (Lovenox) General: Alert, Cooperative, No Acute Distress. No: Oriented (Nonverbal) HEENT: Pupils Equal, Pupils Reactive, Mucous Membr. Moist/[place] Neck: Supple, Trachea Midline. No: Lymphadenopathy Lungs: Normal Respiratory Effort, Crackles (Fine crackles noted posteriorly) Cardiovascular: Regular Rate, Regular Rhythm, No Murmurs GI/Abdominal Exam: Normal Bowel Sounds, Soft, Non-Tender, No Distention (Male) Exam: Deferred Back Exam: Normal Inspection, Full Range of Motion Extremities: Normal Inspection, Normal Range of Motion, Non-Tender, No Pedal Edema, Normal Capillary Refill Peripheral Pulses: 2+: Radial (L), Radial (R), Dorsalis Pedis (L), Dorsalis Pedis (R) Skin: Warm, Dry, Intact Neurological: Other (Patient is nonverbal due to Lewy body dementia) Psy/Mental Status: Alert, Normal Affect, Normal Mood Sepsis Event Note - Evaluation Sepsis Screening Result: No Definite Risk - Focused Exam Vital Signs: Vital Signs Temp Pulse Resp BP Pulse Ox Pulse Ox 06/03/20 12:47 100 06/03/20 12:11 97.2 F 06/03/20 12:04 61 34 H 134/91 H 95 06/03/20 08:00 97.5 F 59 L 22 H 108/69 96 06/03/20 07:55 95 06/03/20 01:51 97.9 F 58 L 16 99/55 L 94 L - Problem List & Annotations (1) Influenza B SNOMED Code(s): 51034202 Code(s): J10.1 - FLU DUE TO OTH IDENT INFLUENZA VIRUS W OTH RESP MANIFEST Status: Acute Priority: High Current Visit: Yes (2) Chronic congestive heart failure SNOMED Code(s): 27866491 Code(s): I50.9 - HEART FAILURE, UNSPECIFIED Status: Chronic Priority: Medium Current Visit: Yes Qualifiers: Heart failure type: diastolic Qualified Code(s): I50.32 - Chronic diastolic (congestive) heart failure (3) Lewy body dementia SNOMED Code(s): 670029291 Code(s): G31.83 - DEMENTIA WITH LEWY BODIES; F02.80 - DEMENTIA IN OTH DISEASES CLASSD ELSWHR W/O BEHAVRL DISTURB Status: Chronic Priority: Medium Current Visit: Yes Qualifiers: Dementia behavioral disturbance: without behavioral disturbance Qualified Code(s): G31.83 - Dementia with Lewy bodies; F02.80 - Dementia in other diseases classified elsewhere without behavioral disturbance (4) Pacemaker SNOMED Code(s): 570626537 Code(s): Z95.0 - PRESENCE OF CARDIAC PACEMAKER Status: Chronic Priority: Medium Current Visit: Yes - Problem List Review Problem List Initiated/Reviewed/Updated: Yes - Assessment Assessment:: I have seen and examined the patient independent of nurse practitioner Raven Hebert and I have discussed the case with her. I have reviewed and agree with the assessment and plan as outlined for this patient by her. Please see orders. 06/02/20 * positive for influenza B. Currently receiving tamiflu for this * O2 titrated down * more alert this afternoon, eating and drinking well per nursing staff * Mg 1.7 today * VSS no fever PLAN: * Continue Tamiflu * Continue IV fluids * Magnesium 2 g IV today * Continue nebulizer treatments * Labs tomorrow Tentative plan for patient to return to [facility] tomorrow 06/03/20 * positive for influenza B. Currently receiving tamiflu for this * O2 titrated down * Very alert. Eating and drinking well. * VSS no fever * Nursing staff reporting that patient coughing when taking p.o. * The patient's lungs with increasing crackles this afternoon. Nebulizer treatment given per respiratory care. Lung sounds remain wet sounding. PLAN: * Continue Tamiflu * Discontinue IV fluids. * Continue nebulizer treatments * Swallow eval to be completed this afternoon. * Patient is unable to return to the correction today due to the fact that a swallow eval cannot be done until after 3 PM. The correction will not take patients after 3 PM. * Give it 20 mg IV Lasix x1 dose. Renal function is stable. Tentative plan for patient to return to [facility] tomorrow - Plan Plan:: The patient is an 80-year-old gentleman who has been admitted as an inpatient to acute hospitalization. The patient does have laboratory proven influenza B. I started the patient on Tamiflu 30 mg p.o. twice daily to see if this helps with his symptomology. The patient also is dry and he will be kept on IV fluids consisting of normal saline at 75 mL/h. His fluids status will be monitored very closely in case of fluid overload. He is currently taking Lasix as his home medication. The patient also has severe dementia and as a result of this formation from the patient is scarce. Last time the patient was in the hospital was in 2018. I reviewed the patient's medications from home and I have restarted him on these medications. The patient has also been taking Coumadin currently has a therapeutic INR and the patient will not need DVT prophylaxis. The patient appears to be bedridden however I am concerned that he is a fall risk and therefore will not have mechanical SCDs. The patient will likely need to have a soft mechanical diet and I have ordered a speech eval to help determine if the patient does have any issues with aspiration. Physical therapy and occupational therapy have also been ordered for the patient. He should be appropriate for transfer back to his correction in 2 to 3 days. Influenza B -albuterol nebulizer -tamiflu -Saline lock IV Pacemaker; Chronic congestive heart failure -on lasix, metoprolol and coumadin Lewy body dementia -chronic progression PROPHYLAXIS: DVT: Coumadin CODE STATUS: DNR\DNI DISPOSITION: Plan to discharge back to [facility] tomorrow. <Basilio Melendez - Last Filed: 06/03/20 15:20> - Patient Data Vitals - Most Recent: Last Vital Signs Temp 36.2 C 06/03/20 12:11 Pulse 61 06/03/20 14:05 Resp 34 H 06/03/20 12:04 BP 120/68 06/03/20 14:05 Pulse Ox 100 06/03/20 12:47 I&O - Last 24 Hours: Intake & Output 06/03/20 06/03/20 06/03/20 06:59 14:59 22:59 Intake Total 1600 420 Balance 1600 420 Lab Results Last 24 Hours: Laboratory Results - last 24 hr 06/03/20 06/03/20 Range/Units 08:53 08:53 WBC 6.22 (4.23-9.07) K/mm3 RBC 4.01 L (4.63-6.08) M/mm3 Hgb 12.3 L (13.7-17.5) gm/dl Hct 38.2 L (40.1-51.0) % MCV 95.3 H (79.0-92.2) fl MCH 30.7 (25.7-32.2) pg MCHC 32.2 (32.2-35.5) g/dl RDW Std Deviation 49.5 H (35.1-43.9) fL Plt Count 157 L (163-337) K/mm3 MPV 8.8 L (9.4-12.3) fl Neut % (Auto) 71.1 H (34.0-67.9) % Lymph % (Auto) 13.7 L (21.8-53.1) % [place] % (Auto) 12.4 H (5.3-12.2) % Eos % (Auto) 2.4 (0.8-7.0) Baso % (Auto) 0.2 (0.1-1.2) % Neut # (Auto) 4.43 (1.78-5.38) K/mm3 Lymph # (Auto) 0.85 L (1.32-3.57) K/mm3 [place] # (Auto) 0.77 (0.30-0.82) K/mm3 Eos # (Auto) 0.15 (0.04-0.54) K/mm3 Baso # (Auto) 0.01 (0.01-0.08) K/mm3 Sodium 142 (136-145) mEq/L Potassium 3.6 (3.5-5.1) mEq/L Chloride 106 (98-107) mEq/L Carbon Dioxide 30 (21-32) mEq/L Anion Gap 9.6 (5-15) BUN 16 (7-18) mg/dL Creatinine 0.9 (0.7-1.3) mg/dL Est Cr Clr Drug Dosing 61.22 mL/min Estimated GFR (MDRD) > 60 (>60) mL/min BUN/Creatinine Ratio 17.8 (14-18) Glucose 91 (83-115) mg/dL Calcium 8.5 (8.5-10.1) mg/dL Magnesium 1.9 (1.8-2.4) mg/dl Total Bilirubin 1.5 H (0.2-1.0) mg/dL AST 32 (15-37) U/L ALT 33 (16-63) U/L Alkaline Phosphatase 142 H (46-116) U/L Total Protein 6.2 L (6.4-8.2) g/dl Albumin 2.6 L (3.4-5.0) g/dl Globulin 3.6 gm/dL Albumin/Globulin Ratio 0.7 L (1-2) Yunior Results Last 24 Hours: Microbiology 06/01/20 10:32 Aerobic Blood Culture - Preliminary Blood - Venous - Lab Draw NO GROWTH AFTER 2 DAYS Anaerobic Blood Culture - Preliminary NO GROWTH AFTER 2 DAYS 06/01/20 10:25 Aerobic Blood Culture - Preliminary Blood - Venous NO GROWTH AFTER 2 DAYS Anaerobic Blood Culture - Preliminary NO GROWTH AFTER 2 DAYS Med Orders - Current: Current Medications Acetaminophen (Tylenol) 650 mg RECTAL Q4H PRN PRN Reason: Pain (mild 1-3) Last Admin: 06/02/20 20:38 Dose: 650 mg Documented by: Albuterol/Ipratropium (Duoneb 3.0-0.5 Mg/3 Ml) 3 ml NEB Q4H PRN PRN Reason: Shortness Of Breath/wheezing Last Admin: 06/03/20 12:47 Dose: 3 ml Documented by: Allopurinol (Zyloprim) 50 mg PO DAILY [facility] Last Admin: 06/03/20 09:01 Dose: 50 mg Documented by: Artificial Tears (Refresh Liquigel 1%) 0 ml EYEBOTH BID PRN PRN Reason: Dry Eyes Bisacodyl (Dulcolax) 10 mg RECTAL DAILY PRN PRN Reason: Constipation Furosemide (Lasix) 60 mg PO DAILY [facility] Last Admin: 06/03/20 09:00 Dose: 60 mg Documented by: Ketorolac Tromethamine (Toradol) 30 mg IM Q6H PRN PRN Reason: Pain (moderate 4-6) Levothyroxine Sodium (Synthroid) 50 mcg PO ACBREAKFAST [facility] Last Admin: 06/03/20 09:01 Dose: 50 mcg Documented by: Magnesium Hydroxide (Milk Of Magnesia) 30 ml PO TID PRN PRN Reason: Constipation Metoprolol Tartrate (Lopressor) 25 mg PO DAILY [facility] Last Admin: 06/03/20 14:05 Dose: 25 mg Documented by: Ondansetron HCl (Zofran) 4 mg IV Q6H PRN PRN Reason: Nausea/Vomiting Oseltamivir Phosphate (Tamiflu) 30 mg PO BID [facility] Last Admin: 06/03/20 09:19 Dose: 30 mg Documented by: Trolamine Salicylate (Aspercreme 10%) 0 gm TOP BID [facility] Last Admin: 06/03/20 09:02 Dose: 1 applic Documented by: Warfarin Sodium (Coumadin) 7.5 mg PO SuTuThSa@1800 [facility] Last Admin: 06/01/20 18:17 Dose: 7.5 mg Documented by: Warfarin Sodium (Coumadin) 10 mg PO MoWeFr@1800 [facility] Last Admin: 06/02/20 18:51 Dose: 10 mg Documented by: Discontinued Medications Albuterol/Ipratropium (Duoneb 3.0-0.5 Mg/3 Ml) 3 ml NEB ONETIME ONE Stop: 06/01/20 10:05 Last Admin: 06/01/20 10:20 Dose: 3 ml Documented by: Albuterol/Ipratropium (Duoneb 3.0-0.5 Mg/3 Ml) 3 ml NEB ONETIME ONE Stop: 06/01/20 14:29 Last Admin: 06/01/20 14:36 Dose: 3 ml Documented by: Furosemide (Lasix) 20 mg IVPUSH NOW ONE Stop: 06/03/20 13:01 Last Admin: 06/03/20 14:34 Dose: 20 mg Documented by: Sodium Chloride (Normal Saline) 1,000 mls @ 75 mls/hr IV ASDIRECTED [facility] Last Admin: 06/03/20 06:36 Dose: 75 mls/hr Documented by: Magnesium Sulfate (Magnesium Sulfate In Water Premix) 2 gm in 50 mls @ 25 mls/hr IV ONETIME ONE Stop: 06/02/20 10:03 Last Admin: 06/02/20 09:51 Dose: 25 mls/hr Documented by: Lorazepam (Ativan) 0.5 mg IVPUSH ONETIME ONE Stop: 06/01/20 10:25 Last Admin: 06/01/20 10:48 Dose: 0.5 mg Documented by: Morphine Sulfate (Morphine) 1 mg IVPUSH ONETIME ONE Stop: 06/01/20 10:25 Last Admin: 06/01/20 10:48 Dose: 1 mg Documented by: Non-Formulary Medication (Brimonidine Tartrate [Lumify]) 1 drop EYEBOTH DAILY PRN PRN Reason: redness Oseltamivir Phosphate (Tamiflu) 30 mg PO ONETIME ONE Stop: 06/01/20 14:14 Last Admin: 06/01/20 14:50 Dose: 30 mg Documented by: Oseltamivir Phosphate (Tamiflu) 30 mg PO BID [facility] Last Admin: 06/03/20 09:16 Dose: Not Given Documented by: Warfarin Sodium (Coumadin) 10 mg PO MoWeFr@1800 [facility] Last Admin: 06/02/20 19:37 Dose: Not Given Documented by: Sepsis Event Note - Focused Exam Vital Signs: Vital Signs Temp Pulse Resp BP Pulse Ox Pulse Ox 06/03/20 14:05 61 120/68 06/03/20 12:47 100 06/03/20 12:11 36.2 C 06/03/20 12:04 61 34 H 134/91 H 95 06/03/20 08:00 36.4 C 59 L 22 H 108/69 96 06/03/20 07:55 95 - Problem List & Annotations (1) Influenza B SNOMED Code(s): 15344250 Code(s): J10.1 - FLU DUE TO OTH IDENT INFLUENZA VIRUS W OTH RESP MANIFEST Status: Acute Priority: High Current Visit: Yes (2) Pacemaker SNOMED Code(s): 771994140 Code(s): Z95.0 - PRESENCE OF CARDIAC PACEMAKER Status: Chronic Priority: Medium Current Visit: Yes (3) Chronic congestive heart failure SNOMED Code(s): 73820660 Code(s): I50.9 - HEART FAILURE, UNSPECIFIED Status: Chronic Priority: Medium Current Visit: Yes Qualifiers: Heart failure type: diastolic Qualified Code(s): I50.32 - Chronic diastolic (congestive) heart failure (4) Lewy body dementia SNOMED Code(s): 428719075 Code(s): G31.83 - DEMENTIA WITH LEWY BODIES; F02.80 - DEMENTIA IN OTH DISEASES CLASSD ELSWHR W/O BEHAVRL DISTURB Status: Chronic Priority: Medium Current Visit: Yes Qualifiers: Dementia behavioral disturbance: without behavioral disturbance Qualified Code(s): G31.83 - Dementia with Lewy bodies; F02.80 - Dementia in other diseases classified elsewhere without behavioral disturbance - My Orders Last 24 Hours: My Active Orders 06/02/20 Dinner Mechanical Soft Diet [DIET] 06/02/20 18:00 Warfarin [Coumadin] 10 mg PO MoWeFr@1800 06/03/20 09:30 Oseltamivir [Tamiflu] 30 mg PO BID - Plan Plan:: I have seen and examined the patient independent of nurse practitioner Raven Hebert and I have discussed the case with her. I have reviewed and agree with the assessment and plan as outlined for this patient by her. Please see orders.
[2020-06-03] MEDS: Warfarin 7.5 MG Tab PO SCH ×2 (17:41→17:53)
[2020-06-04] MEDS: Levothyroxine 50 MCG Tab PO SCH (06:59)
[2020-06-04] MEDS: Magnesium Sulfate/Water 2 GM/50 ML BAG IV SCH ×3 (09:16→12:58)
[2020-06-04] MEDS: Oseltamivir 6 MG/ML Susp 60 ML Bot PO SCH (09:23)
[2020-06-04] MEDS: Allopurinol 100 MG Tab PO SCH (09:24)
[2020-06-04] MEDS: Furosemide 20 MG Tab PO SCH (09:25)
[2020-06-04] MEDS: Metoprolol Tartrate 25 MG Tab PO SCH (09:26)
[2020-06-04] MEDS: Trolamine Salicylate/Aloe Vera 10% Crm 85 GM Tube TOP SCH (09:33)
--- NOTE | 2020-06-04 13:30 | PCM.DCSUM1 ---
<Raven Hebert M - Last Filed: 06/04/20 13:32> Discharge Summary - Hospital Course HPI Initial Comments: The patient is an 80-year-old gentleman who had presented to the emergency department from [facility] with decreased alertness and a cough. The patient has advanced Lewy body dementia and he has been unable to participate in any meaningful way with his history and physical. The patient is essentially nonverbal. Information has been obtained from the charting as well as previous medical records. Patient's family is not available. Apparently over the past 24 to 36 hours the patient became less responsive. He has a cough. The patient does have a history of congestive heart failure and he is currently anticoagulated chronically with warfarin with a therapeutic INR. The patient also has multiple medications for constipation. Patient also has a pacemaker in place. Diagnosis: Stroke: No - Discharge Data Discharge Date: 06/04/20 (Admit date: 06/01/20) Discharge Disposition: DC/Tfer to SNF 03 Condition: Stable - Referral to Home Health Primary Care Physician: Adrian Maravilla MD - Discharge Diagnosis/Problem(s) (1) Influenza B SNOMED Code(s): 68802629 ICD Code: J10.1 - FLU DUE TO OTH IDENT INFLUENZA VIRUS W OTH RESP MANIFEST Status: Acute Priority: High (2) Chronic congestive heart failure SNOMED Code(s): 03250751 ICD Code: I50.9 - HEART FAILURE, UNSPECIFIED Status: Chronic Priority: Medium Qualifiers: Heart failure type: diastolic Qualified Code(s): I50.32 - Chronic diastolic (congestive) heart failure (3) Lewy body dementia SNOMED Code(s): 019287931 ICD Code: G31.83 - DEMENTIA WITH LEWY BODIES; F02.80 - DEMENTIA IN OTH DISEASES CLASSD ELSWHR W/O BEHAVRL DISTURB Status: Chronic Priority: Medium Qualifiers: Dementia behavioral disturbance: without behavioral disturbance Qualified Code(s): G31.83 - Dementia with Lewy bodies; F02.80 - Dementia in other diseases classified elsewhere without behavioral disturbance (4) Pacemaker SNOMED Code(s): 982745134 ICD Code: Z95.0 - PRESENCE OF CARDIAC PACEMAKER Status: Chronic Priority: Medium - Patient Summary/Data Consults: Consultations 06/01/20 15:11 OT Evaluation and Treatment [CONS] Routine PT Evaluation and Treatment [CONS] Routine DIVIDEND DEPOSIT VOUCHER CLERK Evaluation and Treatment [CONS] Routine Hospital Course: 06/02/20 * positive for influenza B. Currently receiving tamiflu for this * O2 titrated down * more alert this afternoon, eating and drinking well per nursing staff * Mg 1.7 today * VSS no fever PLAN: * Continue Tamiflu * Continue IV fluids * Magnesium 2 g IV today * Continue nebulizer treatments * Labs tomorrow Tentative plan for patient to return to [facility] tomorrow 06/03/20 * positive for influenza B. Currently receiving tamiflu for this * O2 titrated down * Very alert. Eating and drinking well. * VSS no fever * Nursing staff reporting that patient coughing when taking p.o. * The patient's lungs with increasing crackles this afternoon. Nebulizer treatment given per respiratory care. Lung sounds remain wet sounding. PLAN: * Continue Tamiflu * Discontinue IV fluids. * Continue nebulizer treatments * Swallow eval to be completed this afternoon. * Patient is unable to return to the [facility] today due to the fact that a swallow eval cannot be done until after 3 PM. The [facility] will not take patients after 3 PM. * Give it 20 mg IV Lasix x1 dose. Renal function is stable. Tentative plan for patient to return to [facility] tomorrow 06/04/20 * Patient to be discharged to the [facility] today. * Continue taking Tamiflu suspension twice daily with the last dose being Tuesday morning. * Patient is to follow-up with his primary care provider in 1 week * shelter to follow speech therapies swallow eval recommendations. * Magnesium is 1.7 today. * Magnesium 2 g IV given prior to discharge to [facility]. - Patient Instructions Diet: Usual Diet as Tolerated Activity: As Tolerated Other/Special Instructions: Patient may be discharged back to [facility]. Follow-up with primary care physician in 1 week. Continue taking Tamiflu 5 mg twice a day. Last dose will be Tuesday morning dose. Tamiflu suspension has been sent with the patient from the hospital. No prescription needed. Please follow new recommendations regarding patient's swallowing eval and dietary needs. - Discharge Plan *PRESCRIPTION DRUG MONITORING PROGRAM REVIEWED*: Not Applicable *COPY OF PRESCRIPTION DRUG MONITORING REPORT IN PATIENT NICKOLAS: Not Applicable Home Medications: Home Meds Furosemide 60 mg PO DAILY 04/07/18 [History] Levothyroxine [Synthroid] 50 mcg PO ACBREAKFAST 04/07/18 [History] allopurinoL [Zyloprim] 50 mg PO DAILY 04/07/18 [History] Warfarin Sodium [Jantoven] 7.5 mg PO SUTUTHSA 04/10/18 [History] Acetaminophen [Pain Reliever] 650 mg PO DAILY PRN 06/02/18 [History] Sennosides/Docusate Sodium [Senna Plus Tablet] 1 tab PO DAILY PRN 06/02/18 [History] Warfarin Sodium [Coumadin] 10 mg PO MOWEFR 06/02/18 [History] Brimonidine Tartrate [Lumify] 1 drop EYEBOTH DAILY PRN 06/01/20 [History] Magnesium Hydroxide [Milk of Magnesia] 30 ml PO TID PRN 06/01/20 [History] Metoprolol Tartrate [Lopressor] 25 mg PO DAILY 06/01/20 [History] Propylene Glycol/PEG 400/Pf [Systane 0.3-0.4% Eye Drop] 1 drop EYEBOTH BID PRN 06/01/20 [History] Sennosides [Senna] 8.6 mg PO BID 06/01/20 [History] Trolamine Salicylate/Aloe Vera [Aspercreme 10%] 1 applic TOP BID 06/01/20 [History] bisacodyL [Bisacodyl] 10 mg RECTAL DAILY PRN 06/01/20 [History] polyethylene glycoL 3350 [MiraLAX] 17 gm PO DAILY 06/01/20 [History] Oseltamivir [Tamiflu] 30 mg PO BID bottle 06/04/20 [Rx] Oxygen Therapy Mode: Room Air Patient Handouts: Heart Failure Action Plan Referrals: Adrian Maravilla MD [Primary Care Provider] - 06/13/20 8:30 am (Please follow up with Dr. Maravilla on June 13 at 8:30.) - Discharge Summary/Plan Comment DC Time >30 min.: Yes - General Info Date of Service: 06/04/20 Admission Dx/Problem (Free Text: Patient is from [facility] with reduced alertness and cough. Subjective Update: Doing very well today. Patient can be transferred back to the [facility]. Functional Status: Reports: Pain Controlled, Tolerating Diet, Urinating - Review of Systems General: Reports: No Symptoms HEENT: Reports: No Symptoms Pulmonary: Reports: No Symptoms Cardiovascular: Reports: No Symptoms Gastrointestinal: Reports: No Symptoms Genitourinary: Reports: Incontinence Musculoskeletal: Reports: No Symptoms Skin: Reports: No Symptoms Neurological: Reports: Other (Patient is nonverbal) Psychiatric: Reports: Other (Patient is nonverbal due to advanced dementia) - Patient Data Vitals - Most Recent: Last Vital Signs Temp 98.8 F 06/04/20 07:48 Pulse 59 L 06/04/20 07:48 Resp 16 06/04/20 07:48 BP 104/57 L 06/04/20 07:48 Pulse Ox 91 L 06/04/20 10:02 Weight - Most Recent: 76.249 kg I&O - Last 24 hours: Intake & Output 06/03/20 06/04/20 06/04/20 22:59 06:59 14:59 Intake Total 470 30 240 Balance 470 30 240 Lab Results - Last 24 hrs: Laboratory Results - last 24 hr 06/03/20 06/04/20 06/04/20 Range/Units 17:52 04:36 04:36 WBC 7.51 (4.23-9.07) K/mm3 RBC 4.06 L (4.63-6.08) M/mm3 Hgb 12.4 L (13.7-17.5) gm/dl Hct 38.9 L (40.1-51.0) % MCV 95.8 H (79.0-92.2) fl MCH 30.5 (25.7-32.2) pg MCHC 31.9 L (32.2-35.5) g/dl RDW Std Deviation 49.7 H (35.1-43.9) fL Plt Count 176 (163-337) K/mm3 MPV 9.6 (9.4-12.3) fl Neut % (Auto) 73.2 H (34.0-67.9) % Lymph % (Auto) 12.6 L (21.8-53.1) % Rains % (Auto) 13.2 H (5.3-12.2) % Eos % (Auto) 0.8 (0.8-7.0) Baso % (Auto) 0.1 (0.1-1.2) % Neut # (Auto) 5.49 H (1.78-5.38) K/mm3 Lymph # (Auto) 0.95 L (1.32-3.57) K/mm3 Rains # (Auto) 0.99 H (0.30-0.82) K/mm3 Eos # (Auto) 0.06 (0.04-0.54) K/mm3 Baso # (Auto) 0.01 (0.01-0.08) K/mm3 Sodium 140 (136-145) mEq/L Potassium 3.8 (3.5-5.1) mEq/L Chloride 104 (98-107) mEq/L Carbon Dioxide 30 (21-32) mEq/L Anion Gap 9.8 (5-15) BUN 17 (7-18) mg/dL Creatinine 1.1 (0.7-1.3) mg/dL Est Cr Clr Drug Dosing 50.09 mL/min Estimated GFR (MDRD) > 60 (>60) mL/min BUN/Creatinine Ratio 15.5 (14-18) Glucose 98 (83-115) mg/dL POC Glucose 105 (83-110) mg/dL Calcium 8.5 (8.5-10.1) mg/dL Magnesium 1.7 L (1.8-2.4) mg/dl Total Bilirubin 2.0 H (0.2-1.0) mg/dL AST 58 H (15-37) U/L ALT 56 (16-63) U/L Alkaline Phosphatase 211 H (46-116) U/L Total Protein 6.7 (6.4-8.2) g/dl Albumin 2.8 L (3.4-5.0) g/dl Globulin 3.9 gm/dL Albumin/Globulin Ratio 0.7 L (1-2) SARS-CoV-2 RNA (SHONDA) (NEGATIVE) 06/04/20 Range/Units 09:20 WBC (4.23-9.07) K/mm3 RBC (4.63-6.08) M/mm3 Hgb (13.7-17.5) gm/dl Hct (40.1-51.0) % MCV (79.0-92.2) fl MCH (25.7-32.2) pg MCHC (32.2-35.5) g/dl RDW Std Deviation (35.1-43.9) fL Plt Count (163-337) K/mm3 MPV (9.4-12.3) fl Neut % (Auto) (34.0-67.9) % Lymph % (Auto) (21.8-53.1) % Rains % (Auto) (5.3-12.2) % Eos % (Auto) (0.8-7.0) Baso % (Auto) (0.1-1.2) % Neut # (Auto) (1.78-5.38) K/mm3 Lymph # (Auto) (1.32-3.57) K/mm3 Rains # (Auto) (0.30-0.82) K/mm3 Eos # (Auto) (0.04-0.54) K/mm3 Baso # (Auto) (0.01-0.08) K/mm3 Sodium (136-145) mEq/L Potassium (3.5-5.1) mEq/L Chloride (98-107) mEq/L Carbon Dioxide (21-32) mEq/L Anion Gap (5-15) BUN (7-18) mg/dL Creatinine (0.7-1.3) mg/dL Est Cr Clr Drug Dosing mL/min Estimated GFR (MDRD) (>60) mL/min BUN/Creatinine Ratio (14-18) Glucose (83-115) mg/dL POC Glucose (83-110) mg/dL Calcium (8.5-10.1) mg/dL Magnesium (1.8-2.4) mg/dl Total Bilirubin (0.2-1.0) mg/dL AST (15-37) U/L ALT (16-63) U/L Alkaline Phosphatase (46-116) U/L Total Protein (6.4-8.2) g/dl Albumin (3.4-5.0) g/dl Globulin gm/dL Albumin/Globulin Ratio (1-2) SARS-CoV-2 RNA (SHONDA) Negative (NEGATIVE) [place] Results - Last 24 hrs: Microbiology 06/01/20 10:32 Aerobic Blood Culture - Preliminary Blood - Venous - Lab Draw NO GROWTH AFTER 3 DAYS Anaerobic Blood Culture - Preliminary NO GROWTH AFTER 3 DAYS 06/01/20 10:25 Aerobic Blood Culture - Preliminary Blood - Venous NO GROWTH AFTER 3 DAYS Anaerobic Blood Culture - Preliminary NO GROWTH AFTER 3 DAYS Med Orders - Current: Current Medications Acetaminophen (Tylenol) 650 mg RECTAL Q4H PRN PRN Reason: Pain (mild 1-3) Last Admin: 06/02/20 20:38 Dose: 650 mg Documented by: Albuterol/Ipratropium (Duoneb 3.0-0.5 Mg/3 Ml) 3 ml NEB Q4H PRN PRN Reason: Shortness Of Breath/wheezing Last Admin: 06/03/20 21:33 Dose: 3 ml Documented by: Allopurinol (Zyloprim) 50 mg PO DAILY [facility] Last Admin: 06/04/20 09:24 Dose: 50 mg Documented by: Artificial Tears (Refresh Liquigel 1%) 0 ml EYEBOTH BID PRN PRN Reason: Dry Eyes Bisacodyl (Dulcolax) 10 mg RECTAL DAILY PRN PRN Reason: Constipation Furosemide (Lasix) 60 mg PO DAILY [facility] Last Admin: 06/04/20 09:25 Dose: 60 mg Documented by: Magnesium Sulfate (Magnesium Sulfate In Water Premix) 2 gm in 50 mls @ 25 mls/hr IV Q1H [facility] Last Admin: 06/04/20 12:58 Dose: Not Given Documented by: Ketorolac Tromethamine (Toradol) 30 mg IM Q6H PRN PRN Reason: Pain (moderate 4-6) Levothyroxine Sodium (Synthroid) 50 mcg PO ACBREAKFAST [facility] Last Admin: 06/04/20 06:59 Dose: Not Given Documented by: Magnesium Hydroxide (Milk Of Magnesia) 30 ml PO TID PRN PRN Reason: Constipation Metoprolol Tartrate (Lopressor) 25 mg PO DAILY [facility] Last Admin: 06/04/20 09:26 Dose: Not Given Documented by: Ondansetron HCl (Zofran) 4 mg IV Q6H PRN PRN Reason: Nausea/Vomiting Oseltamivir Phosphate (Tamiflu) 30 mg PO BID [facility] Last Admin: 06/04/20 09:23 Dose: 30 mg Documented by: Trolamine Salicylate (Aspercreme 10%) 0 gm TOP BID [facility] Last Admin: 06/04/20 09:33 Dose: 1 applic Documented by: Warfarin Sodium (Coumadin) 7.5 mg PO SuTuThSa@1800 [facility] Last Admin: 06/03/20 17:53 Dose: Not Given Documented by: Warfarin Sodium (Coumadin) 10 mg PO MoWeFr@1800 [facility] Last Admin: 10/19/20 18:51 Dose: 10 mg Documented by: Discontinued Medications Albuterol/Ipratropium (Duoneb 3.0-0.5 Mg/3 Ml) 3 ml NEB ONETIME ONE Stop: 06/01/20 10:05 Last Admin: 06/01/20 10:20 Dose: 3 ml Documented by: Albuterol/Ipratropium (Duoneb 3.0-0.5 Mg/3 Ml) 3 ml NEB ONETIME ONE Stop: 06/01/20 14:29 Last Admin: 06/01/20 14:36 Dose: 3 ml Documented by: Furosemide (Lasix) 20 mg IVPUSH NOW ONE Stop: 06/03/20 13:01 Last Admin: 06/03/20 14:34 Dose: 20 mg Documented by: Sodium Chloride (Normal Saline) 1,000 mls @ 75 [facility] Last Admin: 06/03/20 06:36 Dose: 75 mls/hr Documented by: Magnesium Sulfate (Magnesium Sulfate In Water Premix) 2 gm in 50 mls @ 25 mls/hr IV ONETIME ONE Stop: 06/02/20 10:03 Last Admin: 06/02/20 09:51 Dose: 25 mls/hr Documented by: Lorazepam (Ativan) 0.5 mg IVPUSH ONETIME ONE Stop: 06/01/20 10:25 Last Admin: 06/01/20 10:48 Dose: 0.5 mg Documented by: Morphine Sulfate (Morphine) 1 mg IVPUSH ONETIME ONE Stop: 06/01/20 10:25 Last Admin: 06/01/20 10:48 Dose: 1 mg Documented by: Non-Formulary Medication (Brimonidine Tartrate [Lumify]) 1 drop EYEBOTH DAILY PRN PRN Reason: redness Oseltamivir Phosphate (Tamiflu) 30 mg PO ONETIME ONE Stop: 06/01/20 14:14 Last Admin: 06/01/20 14:50 Dose: 30 mg Documented by: Oseltamivir Phosphate (Tamiflu) 30 mg PO BID [facility] Last Admin: 06/03/20 09:16 Dose: Not Given Documented by: Warfarin Sodium (Coumadin) 10 mg PO MoWeFr@1800 [facility] Last Admin: 06/02/20 19:37 Dose: Not Given Documented by: - Exam Quality Assessment: Denies: Supplemental Oxygen General: Reports: Alert, Cooperative, No Acute Distress. Denies: Oriented (Patient is nonverbal due to advanced dementia) HEENT: Reports: Pupils Equal, Mucous Membr. Moist/[place]: Reports: Supple, Trachea Midline. Denies: Lymphadenopathy Lungs: Reports: Crackles (Crackles noted to bilateral bases.) Cardiovascular: Reports: Regular Rate, Regular Rhythm GI/Abdominal Exam: Normal Bowel Sounds, Soft, Non-Tender, No Distention (Male) Exam: Deferred Rectal (Males) Exam: Deferred Back Exam: Reports: Normal Inspection, Full Range of Motion Extremities: Normal Inspection, Normal Range of Motion, Non-Tender, No Pedal Edema, Normal Capillary Refill Skin: Reports: Warm, Dry, Intact Neurological: Reports: No New Focal Deficit Psy/Mental Status: Reports: Alert, Normal Affect, Normal Mood *Q Meaningful Use (DIS) - VTE *Q VTE Mechanical Contraindications *Q: At Risk for Falls VTE Pharmacological Contraindications *Q: Risk of Bleeding VTE Anticoagulation Contraindications: Treatment Not Tolerated <Basilio Melendez - Last Filed: 06/04/20 17:54> Discharge Summary - Referral to Home Health Primary Care Physician: Adrian Maravilla MD - Discharge Diagnosis/Problem(s) (1) Influenza B SNOMED Code(s): 32011967 ICD Code: J10.1 - FLU DUE TO OTH IDENT INFLUENZA VIRUS W OTH RESP MANIFEST Status: Acute Priority: High (2) Pacemaker SNOMED Code(s): 564636306 ICD Code: Z95.0 - PRESENCE OF CARDIAC PACEMAKER Status: Chronic Priority: Medium (3) Chronic congestive heart failure SNOMED Code(s): 51733694 ICD Code: I50.9 - HEART FAILURE, UNSPECIFIED Status: Chronic Priority: Medium Qualifiers: Heart failure type: diastolic Qualified Code(s): I50.32 - Chronic diastolic (congestive) heart failure (4) Lewy body dementia SNOMED Code(s): 066022377 ICD Code: G31.83 - DEMENTIA WITH LEWY BODIES; F02.80 - DEMENTIA IN OTH DISEASES CLASSD ELSWHR W/O BEHAVRL DISTURB Status: Chronic Priority: Medium Qualifiers: Dementia behavioral disturbance: without behavioral disturbance Qualified Code(s): G31.83 - Dementia with Lewy bodies; F02.80 - Dementia in other diseases classified elsewhere without behavioral disturbance - Patient Summary/Data Consults: Consultations 06/01/20 15:11 OT Evaluation and Treatment [CONS] Routine PT Evaluation and Treatment [CONS] Routine DIVIDEND DEPOSIT VOUCHER CLERK Evaluation and Treatment [CONS] Routine Hospital Course: I have seen and examined the patient independent of nurse practitioner Raven Hebert and I have discussed the case with her. I have reviewed and agree with the assessment and plan as outlined for this patient by her. Please see orders. - Patient Data Vitals - Most Recent: Last Vital Signs Temp 37.1 C 06/04/20 07:48 Pulse 59 L 06/04/20 07:48 Resp 16 06/04/20 07:48 BP 104/57 L 06/04/20 07:48 Pulse Ox 91 L 06/04/20 10:02 I&O - Last 24 hours: Intake & Output 06/04/20 06/04/20 06/04/20 06:59 14:59 22:59 Intake Total 30 240 Balance 30 240 Lab Results - Last 24 hrs: Laboratory Results - last 24 hr 06/03/20 06/04/20 06/04/20 Range/Units 17:52 04:36 04:36 WBC 7.51 (4.23-9.07) K/mm3 RBC 4.06 L (4.63-6.08) M/mm3 Hgb 12.4 L (13.7-17.5) gm/dl Hct 38.9 L (40.1-51.0) % MCV 95.8 H (79.0-92.2) fl MCH 30.5 (25.7-32.2) pg MCHC 31.9 L (32.2-35.5) g/dl RDW Std Deviation 49.7 H (35.1-43.9) fL Plt Count 176 (163-337) K/mm3 MPV 9.6 (9.4-12.3) fl Neut % (Auto) 73.2 H (34.0-67.9) % Lymph % (Auto) 12.6 L (21.8-53.1) % Rains % (Auto) 13.2 H (5.3-12.2) % Eos % (Auto) 0.8 (0.8-7.0) Baso % (Auto) 0.1 (0.1-1.2) % Neut # (Auto) 5.49 H (1.78-5.38) K/mm3 Lymph # (Auto) 0.95 L (1.32-3.57) K/mm3 Rains # (Auto) 0.99 H (0.30-0.82) K/mm3 Eos # (Auto) 0.06 (0.04-0.54) K/mm3 Baso # (Auto) 0.01 (0.01-0.08) K/mm3 Sodium 140 (136-145) mEq/L Potassium 3.8 (3.5-5.1) mEq/L Chloride 104 (98-107) mEq/L Carbon Dioxide 30 (21-32) mEq/L Anion Gap 9.8 (5-15) BUN 17 (7-18) mg/dL Creatinine 1.1 (0.7-1.3) mg/dL Est Cr Clr Drug Dosing 50.09 mL/min Estimated GFR (MDRD) > 60 (>60) mL/min BUN/Creatinine Ratio 15.5 (14-18) Glucose 98 (83-115) mg/dL POC Glucose 105 (83-110) mg/dL Calcium 8.5 (8.5-10.1) mg/dL Magnesium 1.7 L (1.8-2.4) mg/dl Total Bilirubin 2.0 H (0.2-1.0) mg/dL AST 58 H (15-37) U/L ALT 56 (16-63) U/L Alkaline Phosphatase 211 H (46-116) U/L Total Protein 6.7 (6.4-8.2) g/dl Albumin 2.8 L (3.4-5.0) g/dl Globulin 3.9 gm/dL Albumin/Globulin Ratio 0.7 L (1-2) SARS-CoV-2 RNA (SHONDA) (NEGATIVE) 06/04/20 Range/Units 09:20 WBC (4.23-9.07) K/mm3 RBC (4.63-6.08) M/mm3 Hgb (13.7-17.5) gm/dl Hct (40.1-51.0) % MCV (79.0-92.2) fl MCH (25.7-32.2) pg MCHC (32.2-35.5) g/dl RDW Std Deviation (35.1-43.9) fL Plt Count (163-337) K/mm3 MPV (9.4-12.3) fl Neut % (Auto) (34.0-67.9) % Lymph % (Auto) (21.8-53.1) % Rains % (Auto) (5.3-12.2) % Eos % (Auto) (0.8-7.0) Baso % (Auto) (0.1-1.2) % Neut # (Auto) (1.78-5.38) K/mm3 Lymph # (Auto) (1.32-3.57) K/mm3 Rains # (Auto) (0.30-0.82) K/mm3 Eos # (Auto) (0.04-0.54) K/mm3 Baso # (Auto) (0.01-0.08) K/mm3 Sodium (136-145) mEq/L Potassium (3.5-5.1) mEq/L Chloride (98-107) mEq/L Carbon Dioxide (21-32) mEq/L Anion Gap (5-15) BUN (7-18) mg/dL Creatinine (0.7-1.3) mg/dL Est Cr Clr Drug Dosing mL/min Estimated GFR (MDRD) (>60) mL/min BUN/Creatinine Ratio (14-18) Glucose (83-115) mg/dL POC Glucose (83-110) mg/dL Calcium (8.5-10.1) mg/dL Magnesium (1.8-2.4) mg/dl Total Bilirubin (0.2-1.0) mg/dL AST (15-37) U/L ALT (16-63) U/L Alkaline Phosphatase (46-116) U/L Total Protein (6.4-8.2) g/dl Albumin (3.4-5.0) g/dl Globulin gm/dL Albumin/Globulin Ratio (1-2) SARS-CoV-2 RNA (SHONDA) Negative (NEGATIVE) [place] Results - Last 24 hrs: Microbiology 06/01/20 10:32 Aerobic Blood Culture - Preliminary Blood - Venous - Lab Draw NO GROWTH AFTER 3 DAYS Anaerobic Blood Culture - Preliminary NO GROWTH AFTER 3 DAYS 06/01/20 10:25 Aerobic Blood Culture - Preliminary Blood - Venous NO GROWTH AFTER 3 DAYS Anaerobic Blood Culture - Preliminary NO GROWTH AFTER 3 DAYS Med Orders - Current: Current Medications Discontinued Medications Acetaminophen (Tylenol) 650 mg RECTAL Q4H PRN PRN Reason: Pain (mild 1-3) Last Admin: 06/02/20 20:38 Dose: 650 mg Documented by: Albuterol/Ipratropium (Duoneb 3.0-0.5 Mg/3 Ml) 3 ml NEB ONETIME ONE Stop: 06/01/20 10:05 Last Admin: 06/01/20 10:20 Dose: 3 ml Documented by: Albuterol/Ipratropium (Duoneb 3.0-0.5 Mg/3 Ml) 3 ml NEB ONETIME ONE Stop: 06/01/20 14:29 Last Admin: 06/01/20 14:36 Dose: 3 ml Documented by: Albuterol/Ipratropium (Duoneb 3.0-0.5 Mg/3 Ml) 3 ml NEB Q4H PRN PRN Reason: Shortness Of Breath/wheezing Last Admin: 06/03/20 21:33 Dose: 3 ml Documented by: Allopurinol (Zyloprim) 50 mg PO DAILY [facility] Last Admin: 06/04/20 09:24 Dose: 50 mg Documented by: Artificial Tears (Refresh Liquigel 1%) 0 ml EYEBOTH BID PRN PRN Reason: Dry Eyes Bisacodyl (Dulcolax) 10 mg RECTAL DAILY PRN PRN Reason: Constipation Furosemide (Lasix) 60 mg PO DAILY [facility] Last Admin: 06/04/20 09:25 Dose: 60 mg Documented by: Furosemide (Lasix) 20 mg IVPUSH NOW ONE Stop: 06/03/20 13:01 Last Admin: 06/03/20 14:34 Dose: 20 mg Documented by: Sodium Chloride (Normal Saline) 1,000 mls @ 75 mls/hr IV ASDIRECTED [facility] Last Admin: 06/03/20 06:36 Dose: 75 mls/hr Documented by: Magnesium Sulfate (Magnesium Sulfate In Water Premix) 2 gm in 50 mls @ 25 mls/hr IV ONETIME ONE Stop: 06/02/20 10:03 Last Admin: 06/02/20 09:51 Dose: 25 mls/hr Documented by: Magnesium Sulfate (Magnesium Sulfate In Water Premix) 2 gm in 50 mls @ 25 mls/hr IV Q1H [facility] Last Admin: 06/04/20 12:58 Dose: Not Given Documented by: Ketorolac Tromethamine (Toradol) 30 mg IM Q6H PRN PRN Reason: Pain (moderate 4-6) Levothyroxine Sodium (Synthroid) 50 mcg PO ACBREAKFAST [facility] Last Admin: 06/04/20 06:59 Dose: Not Given Documented by: Lorazepam (Ativan) 0.5 mg IVPUSH ONETIME ONE Stop: 06/01/20 10:25 Last Admin: 06/01/20 10:48 Dose: 0.5 mg Documented by: Magnesium Hydroxide (Milk Of Magnesia) 30 ml PO TID PRN PRN Reason: Constipation Metoprolol Tartrate (Lopressor) 25 mg PO DAILY [facility] Last Admin: 06/04/20 09:26 Dose: Not Given Documented by: Morphine Sulfate (Morphine) 1 mg IVPUSH ONETIME ONE Stop: 06/01/20 10:25 Last Admin: 06/01/20 10:48 Dose: 1 mg Documented by: Non-Formulary Medication (Brimonidine Tartrate [Lumify]) 1 drop EYEBOTH DAILY PRN PRN Reason: redness Ondansetron HCl (Zofran) 4 mg IV Q6H PRN PRN Reason: Nausea/Vomiting Oseltamivir Phosphate (Tamiflu) 30 mg PO ONETIME ONE Stop: 06/01/20 14:14 Last Admin: 06/01/20 14:50 Dose: 30 mg Documented by: Oseltamivir Phosphate (Tamiflu) 30 mg PO BID [facility] Last Admin: 06/03/20 09:16 Dose: Not Given Documented by: Oseltamivir Phosphate (Tamiflu) 30 mg PO BID [facility] Last Admin: 06/04/20 09:23 Dose: 30 mg Documented by: Trolamine Salicylate (Aspercreme 10%) 0 gm TOP BID [facility] Last Admin: 06/04/20 09:33 Dose: 1 applic Documented by: Warfarin Sodium (Coumadin) 10 mg PO [email or web address] [facility] Last Admin: 06/02/20 19:37 Dose: Not Given Documented by: Warfarin Sodium (Coumadin) 7.5 mg PO [email or web address] [facility] Last Admin: 06/03/20 17:53 Dose: Not Given Documented by: Warfarin Sodium (Coumadin) 10 mg PO [email or web address] [facility] Last Admin: 06/02/20 18:51 Dose: 10 mg Documented by:
== END 2020-06-04 11:40 | DRG 194 ==
LOC: JD.ED 09:33 → JD.MS 15:06
PROVIDERS: ADMIT Internal Medicine; ATTEND Internal Medicine
DX: J10.1 Influenza due to other identified influenza virus with other respiratory manifestations (principal); H54.7 Unspecified visual loss; I50.9 Heart failure, unspecified; I50.32 Chronic diastolic (congestive) heart failure; G31.83 Neurocognitive disorder with Lewy bodies; M10.9 Gout, unspecified; J45.909 Unspecified asthma, uncomplicated; F02.81 Dementia in other diseases classified elsewhere, unspecified severity, with behavioral disturbance; E03.9 Hypothyroidism, unspecified; Z20.828 Contact with and (suspected) exposure to other viral communicable diseases; Z95.0 Presence of cardiac pacemaker; Z79.01 Long term (current) use of anticoagulants; Z88.8 Allergy status to other drugs, medicaments and biological substances; Z79.890 Hormone replacement therapy; Z79.899 Other long term (current) drug therapy
CPT/HCPCS: 36415; 71045; 80053; 81001; 82728; 83605; 83615; 84484; 85007; 85027; 85379; 85610; 85730; 86140; 87040 ×2; 87804 ×2; 93005; 94640 ×2; 96374; 96375; 99285; A9270; J2060; J2270; U0002; 82962; 83735; 84100; 85025; 87641; 92610-GN; 94761; 94762; 97110-GO; 97165-GO; 97530-GO; 99283; J1940; J3475; J7030; J7620-GY